=== PATIENT | female | born 1955 | race Caucasian/White ===

== ENCOUNTER → 2017-04-26 | Outpatient (CLI) | payer OTHER ==
--- NOTE | 2017-04-30 07:28 | MM ---
Reason for exam: additional evaluation requested from prior study. Last mammogram was performed 1 year ago. History: Patient is postmenopausal, has history of breast cancer at age 48, and is nulliparous. Mastectomy of the left breast, February 2004. Benign excisional biopsy of the right breast, 2003. Chemotherapy, 2003. Physical Findings: Nurse did not find any significant physical abnormalities on exam. MG Diagnostic Mammo RT w CAD CC and MLO view(s) were taken of the right breast. Prior study comparison: April 25, 2016, right breast MG diagnostic mammo RT w CAD. April 18, 2015, right breast MG diagnostic mammo RT w CAD. The breast tissue is almost entirely fat. No significant new findings when compared with previous films. These results were verbally communicated with the patient and result sheet given to the patient on 04/26/17. ASSESSMENT: Benign, BI-RAD 2 RECOMMENDATION: Follow-up diagnostic mammogram of the right breast in 1 year.
== END | disposition home or self-care (01) ==
LOC: RADMAMWWP 13:21
PROVIDERS: ATTEND Family Medicine
DX: Z08 Encounter for follow-up examination after completed treatment for malignant neoplasm (principal); Z85.3 Personal history of malignant neoplasm of breast

== ENCOUNTER → 2017-12-12 | Outpatient (CLI) | payer OTHER ==
[2017-12-12 12:31] LABS: Anion Gap 12 mmol/L; Blood Urea Nitrogen 18 mg/dL (7-17); Carbon Dioxide 31 mmol/L (22-30); Chloride 99 mmol/L (98-107); Glucose 161 mg/dL (74-99); Sodium 142 mmol/L (137-145)
== END | disposition home or self-care (01) ==
LOC: LABWHC1 11:34
PROVIDERS: ATTEND Nurse Practitioner Adult Health
DX: R60.0 Localized edema (principal); I10 Essential (primary) hypertension
CPT/HCPCS: 36415; 80048

== ENCOUNTER → 2018-02-24 | Outpatient (CLI) | payer OTHER ==
[2018-02-24 10:59] LABS: Anion Gap 9 mmol/L; Blood Urea Nitrogen 16 mg/dL (7-17); Calcium 9.5 mg/dL (8.4-10.2); Carbon Dioxide 31 mmol/L (22-30); Chloride 99 mmol/L (98-107); Glucose 174 mg/dL (74-99); Potassium 4.5 mmol/L (3.5-5.1); Sodium 139 mmol/L (137-145)
== END | disposition home or self-care (01) ==
LOC: LABWHC1 09:53
PROVIDERS: ATTEND Internal Medicine Interventional Cardiology
DX: N18.9 Chronic kidney disease, unspecified (principal)
CPT/HCPCS: 36415; 80048

== ENCOUNTER 2018-06-26 10:17 | Day surgery (SDC) | payer OTHER ==
[2018-06-23 15:32] VITALS: BMI 46.8
[~2018-06-26 10:17] MED LIST: LACTATED RINGERS 1,000 ML IV SCH
[2018-06-26 11:04] VITALS: TEMP 97.9
[2018-06-26] MEDS ORDERED: LIDOCAINE 1% 20 ML VIAL (10MG/ML) FOR IV START INTRADERMA ONE (11:05)
[2018-06-26] MEDS ORDERED: PROPOFOL 10 MG/ML 20 ML VIAL IV ONE (11:33)
--- NOTE | 2018-06-26 11:33 | P.GSHP ---
History of Present Illness H&P Date: 06/26/18 Chief Complaint: History of colon polyps This is a 62-year-old female who presents today for colonoscopy. Patient has history of colonic polyps. Her last colonoscopy was 11 years ago. Past Medical History Past Medical History: Asthma, Cancer, Hypertension, Neurologic Disorder Additional Past Medical History / Comment(s): MIGRAINES. RLS. HX LT BREAST CANCER History of Any Multi-Drug Resistant Organisms: None Reported Past Surgical History: Appendectomy, Breast Surgery, Orthopedic Surgery Additional Past Surgical History / Comment(s): LT MASTECTOMY. BILAT CTR. COLONOSCOPY Past Anesthesia/Blood Transfusion Reactions: Motion Sickness, Postoperative Nausea & Vomiting (PONV) Past Psychological History: No Psychological Hx Reported Smoking Status: Never smoker Past Alcohol Use History: None Reported Past Drug Use History: None Reported - Past Family History Father Family Medical History: Cancer Additional Family Medical History / Comment(s): COLON Sister(s) Family Medical History: Cancer Additional Family Medical History / Comment(s): THYROID Medications and Allergies Home Medications Medication Instructions Recorded Confirmed Type Albuterol Inhaler [Ventolin Hfa 1 - 2 puff INHALATION RT-Q6H PRN 06/23/18 History Inhaler] Furosemide [Lasix] 40 mg PO BID 06/23/18 06/23/18 History Metoprolol Tartrate [Lopressor] 12.5 mg PO AC-SUPPER 06/23/18 06/26/18 History Metoprolol Tartrate [Lopressor] 25 mg PO BID 06/23/18 06/23/18 History Pramipexole Di-HCl [Mirapex] 0.5 mg PO BID 06/23/18 06/23/18 History SUMAtriptan SUCCINATE [Imitrex] 100 mg PO DAILY PRN 06/23/18 06/23/18 History Allergies Allergy/AdvReac Type Severity Reaction Status Date / Time prednisone Allergy FEELS LIKE Verified 06/23/18 15:25 BODY IS ON FIRE cephalexin [From Keflex] AdvReac DIZZY Verified 06/23/18 15:25 Surgical - Exam Vital Signs Temp Pulse Resp BP Pulse Ox 97.9 F 77 18 179/82 98 06/26/18 10:43 06/26/18 10:43 06/26/18 10:43 06/26/18 10:43 06/26/18 10:43 - General well developed, no distress - Eyes PERRL - ENT normal pinna - Neck no masses - Respiratory normal expansion - Cardiovascular Rhythm: regular - Abdomen Abdomen: soft, non tender Assessment and Plan Assessment: Issue colon polyps. We'll perform colonoscopy.
--- NOTE | 2018-06-26 11:51 | P.OP ---
Date of Procedure: 06/26/18 Preoperative Diagnosis: History of colon polyps Postoperative Diagnosis: Diverticulosis Right colon polyp Procedure(s) Performed: Colonoscopy Anesthesia: MAC Surgeon: Armando Slater Pathology: other (Right colon polyp) Condition: stable Disposition: PACU Description of Procedure: The patient's placed on the endoscopy table in the lateral position. She received IV sedation. Digital rectal exam was performed which revealed no abnormalities. The flexible colonoscope was then placed patient anus passed throughout the entire colon. The ileocecal valve was visualized. The cecum appeared normal. The scope was then brought back into the right colon was small polyp seen. This removed the forcep. Scope was withdrawn and remainder of the transverse colon appeared normal. In the descending and sigmoid colon there is moderate diverticular changes. There is no evidence of diverticulitis. Scope was then brought back the rectum and this appeared normal. Scope was withdrawn for patient.
[2018-06-26 12:15] VITALS: BP 140/66; PULSE 85; RESP 16
== END 2018-06-26 12:28 | disposition home or self-care (01) ==
LOC: ORWHC2ENDO 10:17
PROVIDERS: ATTEND Surgery
DX: Z12.11 Encounter for screening for malignant neoplasm of colon (principal); D12.2 Benign neoplasm of ascending colon; K57.30 Diverticulosis of large intestine without perforation or abscess without bleeding; J45.909 Unspecified asthma, uncomplicated; I10 Essential (primary) hypertension; G25.81 Restless legs syndrome; E66.01 Morbid (severe) obesity due to excess calories; Z90.12 Acquired absence of left breast and nipple; Z85.3 Personal history of malignant neoplasm of breast; Z79.899 Other long term (current) drug therapy; Z88.8 Allergy status to other drugs, medicaments and biological substances; Z86.010 Personal history of colon polyps; Z88.1 Allergy status to other antibiotic agents; Z68.42 Body mass index [BMI] 45.0-49.9, adult
CPT/HCPCS: 88305; 45380; J2704

== ENCOUNTER → 2019-09-08 | Outpatient (CLI) | payer OTHER ==
--- NOTE | 2019-09-08 13:39 | MM ---
Reason for exam: additional evaluation requested from prior study. Last mammogram was performed 2 years and 4 months ago. History: Patient is postmenopausal, has history of breast cancer at age 48, and is nulliparous. Mastectomy of the left breast, February 2004. Benign excisional biopsy of the right breast, 2003. Chemotherapy, 2003. Physical Findings: Nurse did not find any significant physical abnormalities on exam. MG Diagnostic Mammo RT w CAD CC, MLO, and XCCL view(s) were taken of the right breast. Prior study comparison: April 26, 2017, right breast MG diagnostic mammo RT w CAD. April 25, 2016, right breast MG diagnostic mammo RT w CAD. There are scattered fibroglandular densities. Benign appearing calcifications in the right breast. These results were verbally communicated with the patient and result sheet given to the patient on 09/08/19. ASSESSMENT: Benign, BI-RAD 2 RECOMMENDATION: Follow-up diagnostic mammogram of the right breast in 1 year.
== END | disposition home or self-care (01) ==
LOC: RADMAMWWP 12:47
PROVIDERS: ATTEND Family Medicine
DX: Z08 Encounter for follow-up examination after completed treatment for malignant neoplasm (principal); Z85.3 Personal history of malignant neoplasm of breast
CPT/HCPCS: 77065

== ENCOUNTER → 2020-04-07 | Outpatient (CLI) | payer OTHER ==
--- NOTE | 2020-04-07 13:53 | XR ---
EXAMINATION TYPE: XR chest 2V DATE OF EXAM: 04/07/2020 COMPARISON: NONE TECHNIQUE: PA and lateral views submitted. HISTORY: Cough FINDINGS: Limited inspiration with left-sided consolidation and pleural effusion. Surgical changes overlying th e left hemithorax. No pneumothorax. Arthropathy of the shoulders. Heart size normal. Hypertrophic and degenerative change of the spine. IMPRESSION: 1. Left lower lobe infiltrate and small effusion
== END | disposition home or self-care (01) ==
LOC: RADXRMAIN 13:21
PROVIDERS: ATTEND Family Medicine
DX: J90 Pleural effusion, not elsewhere classified (principal); R91.8 Other nonspecific abnormal finding of lung field
CPT/HCPCS: 71046

== ENCOUNTER → 2020-04-27 | Outpatient (CLI) | payer OTHER ==
--- NOTE | 2020-04-28 08:00 | XR ---
EXAMINATION TYPE: XR chest 2V DATE OF EXAM: 04/27/2020 COMPARISON: 04/07/2020 HISTORY: 64-year-old female R52, pain TECHNIQUE: Frontal and lateral views FINDINGS: Very low lung volumes with crowded vascular markings. Left heart margin partially obscured by the mod erate left effusion, relatively similar to prior exam. Right lung and pleural space appear clear. Tracy gical clips along the lateral left hemithorax. IMPRESSION: Hypoventilatory changes and continued moderate left pleural effusion with adjacent atelectasis and/or consolidation.
== END | disposition home or self-care (01) ==
LOC: RADXRMAIN 13:27
PROVIDERS: ATTEND Family Medicine
DX: J90 Pleural effusion, not elsewhere classified (principal); J98.11 Atelectasis; R91.8 Other nonspecific abnormal finding of lung field
CPT/HCPCS: 71046

== ENCOUNTER → 2020-06-17 | Outpatient (CLI) | payer OTHER ==
[2020-06-17 08:16] LABS: African American GFR (CKD) >90 (>60 ml/min/1.73 sqM); Blood Urea Nitrogen 22 mg/dL (7-17); Non-African American GFR(CKD) >90 (>60 ml/min/1.73 sqM)
--- NOTE | 2020-06-17 11:26 | CT ---
EXAMINATION TYPE: CT chest w con DATE OF EXAM: 06/17/2020 COMPARISON: Chest x-ray 06/08/2020 HISTORY: Pleural effusion CT DLP: 381.4 mGycm Automated exposure control for dose reduction was used. CONTRAST: CT scan of the chest is performed with IV Contrast, patient injected with 100 mL of Isovue 300. FINDINGS: Patient is post left mastectomy, surgical clips are present in the left axilla and along th e left chest wall LUNGS: The left hemithorax show some volume loss, there is a left pleural effusion and associated ate lectasis. There is an enhancing wall present which may be due to chronicity, correlate to exclude inf ection The tracheobronchial tree is patent. MEDIASTINUM: There are no greater than 1 cm hilar or mediastinal lymph nodes. No pericardial effusi on is seen. AORTA: No additional significant abnormality is seen. OTHER: The liver shows low attenuation possibly due to hepatic steatosis. Some increased density wit hin the gallbladder could be related to gallstone but is indeterminate. Degenerative disc changes are present in the visualized spine, there is a slight spinal curvature. IMPRESSION: Left lower lobe atelectasis and associated effusion. Correlate to exclude empyema. Addit ional findings above.
== END | disposition home or self-care (01) ==
LOC: RADCTMAIN 07:25
PROVIDERS: ATTEND Internal Medicine Critical Care Medicine
DX: J98.11 Atelectasis (principal); J90 Pleural effusion, not elsewhere classified; Z88.1 Allergy status to other antibiotic agents; Z88.2 Allergy status to sulfonamides
CPT/HCPCS: 82565; 84520; 71260; 36415; Q9967

== ENCOUNTER 2020-06-30 11:38 | Day surgery (SDC) | payer OTHER ==
[~2020-06-30 11:38] MED LIST changes: -LACTATED RINGERS 1,000 ML IV SCH; +SODIUM CHLORIDE 0.9% 500 ML 500 ML in EMPTY BAG 1 BAG IV PRN
[2020-06-30 12:29] VITALS: BP 141/103; PULSE 96; RESP 16; TEMP 94.5
--- NOTE | 2020-06-30 12:39 | P.PCN ---
Date of Procedure: 06/30/20 Preoperative Diagnosis: Left sided pleural effusion Postoperative Diagnosis: left sided pleural effusion Procedure(s) Performed: Thoracentesis Anesthesia: local Surgeon: Abraham Espinoza Indications for Procedure: A time out was performed and the chest x-ray was reviewed, the appropriate side was confirmed and marked. My hands were washed immediately prior to the procedure. I wore a surgical cap, mask with protective eyewear, sterile gown and sterile gloves throughout the procedure. The patient was prepped and draped in a sterile manner using chlorhexidine scrub after the appropriate level was percussed and confirmed by ultrasound. 1% lidocaine was used to anesthesize the skin, subcutaneous tissue, superior aspect of the rib periosteum and parietal pleura. A finder needle was then introduced over the superior aspect of the rib to locate the pleural fluid; minimal bloody fluid was aspirated at a depth of approximately 2 cm. A 10-blade scalpel was used to howard the skin at the insertion site. The [id number]-[id number] needle was then introduced through the skin incision into the pleural space using negative aspiration pressure and the red colometric indicator to confirm appropriate positioning of the needle. The thoracentesis catheter was then threaded without difficulty. 30 ml of turbid thick bloody fluid was removed without difficulty. The catheter was then remove d. No immediate complications were noted during the procedure. A post-procedure chest x-ray is pending at the time of this note. The fluid will was not sent for studies as it clotted. I discussed the case with interventional radiology. The patient is going to have the procedure again tomorrow under ultrasound guidance by Dr. Alex Mcnally. She'll be discharged today once the chest x-rays clear.
--- NOTE | 2020-06-30 13:31 | XR ---
EXAMINATION TYPE: XR chest 1V portable DATE OF EXAM: 06/30/2020 COMPARISON: Prior chest x-ray 04/27/2020 HISTORY: Status post left thoracentesis TECHNIQUE: Single frontal view of the chest is obtained. FINDINGS: Patient is rotated. There is persistent density at the left lung base. No evident pneumoth orax, lung lines are low. Surgical clips present over the left chest. IMPRESSION: No evident complication status post thoracentesis.
== END 2020-06-30 13:35 | disposition home or self-care (01) ==
LOC: PROCWHC3 11:38
PROVIDERS: ATTEND Internal Medicine Critical Care Medicine
DX: J90 Pleural effusion, not elsewhere classified (principal); I10 Essential (primary) hypertension; E11.9 Type 2 diabetes mellitus without complications; G43.909 Migraine, unspecified, not intractable, without status migrainosus; G25.81 Restless legs syndrome; E66.9 Obesity, unspecified; J98.6 Disorders of diaphragm; I97.2 Postmastectomy lymphedema syndrome; M40.204 Unspecified kyphosis, thoracic region; Z88.1 Allergy status to other antibiotic agents; Z88.8 Allergy status to other drugs, medicaments and biological substances; Z79.84 Long term (current) use of oral hypoglycemic drugs; Z79.899 Other long term (current) drug therapy; Z85.3 Personal history of malignant neoplasm of breast; Z92.21 Personal history of antineoplastic chemotherapy; Z98.890 Other specified postprocedural states; Z68.39 Body mass index [BMI] 39.0-39.9, adult
CPT/HCPCS: 32554; 71045

== ENCOUNTER 2020-07-01 10:44 | Day surgery (SDC) | payer OTHER ==
[2020-07-01 11:43] LABS: Mean Platelet Volume 7.8; Platelet Count 319 k/uL (150-450)
[2020-07-01 11:44] VITALS: RESP 18; TEMP 97.4
[2020-07-01 11:47] LABS: Prothrombin Time 10.5 sec (9.0-12.0)
--- NOTE | 2020-07-01 13:28 | XR ---
EXAMINATION TYPE: XR chest 1V portable DATE OF EXAM: 07/01/2020 COMPARISON: 06/30/2020 INDICATION: Left thoracentesis TECHNIQUE: Single frontal view of the chest is obtained. FINDINGS: The heart size is normal. The pulmonary vasculature is normal. Left side chest wall surgical clips are present. No pneumothorax is evident. Small left pleural effus ion is present. IMPRESSION: 1. Small left pleural effusion slightly smaller. No pneumothorax.
[2020-07-01 13:41] VITALS: BP 124/64; PULSE 98
--- NOTE | 2020-07-01 15:09 | US ---
EXAMINATION TYPE: US thoracentesis DATE OF EXAM: 07/01/2020 COMPARISON: NONE HISTORY: Pleural effusion. FINDINGS: Maximal barrier technique was utilized. The skin overlying a suitable pocket of fluid was localized and the overlying skin prepped and draped. Lidocaine was used for local anesthesia. Ultras ound was used with sterile technique. A 5 [place] catheter over guide needle was advanced into the pl eural fluid collection using ultrasound guidance and the catheter advanced, needle removed. Approxim ately 0.2 liter(s) of serous fluid was removed. Catheter was withdrawn and hemostasis achieved. The re is no immediate complication. The patient discharged in stable condition without complication. Sp ecimen sent for laboratory analysis. IMPRESSION: STATUS POST ULTRASOUND GUIDED THORACENTESIS, POST PROCEDURE CHEST X-RAY PENDING. THIS DE OCEDURE WAS PERFORMED BY THE UNDERSIGNED.
[2020-07-01 19:35] LABS: Appearance,BF Clear; Color,BF Yellow; Nucleated Cells, Body Fluid 770 /uL; RBC, Body Fluid 1715 /uL
[2020-07-01 20:36] LABS: Mononuclear WBC,Body Fluid 100 %; Total Cells Counted,Body Fluid 100
[2020-07-02 00:26] LABS: Total Protein, Body Fluid 3010 mg/dL
[2020-07-02 00:41] LABS: Glucose, BF Source Pleural Fluid; Glucose, Body Fluid 124 mg/dL; LDH, Body Fluid Source Pleural Fluid
== END 2020-07-01 13:05 | disposition home or self-care (01) ==
LOC: RADPROMAIN 10:44
PROVIDERS: ATTEND Internal Medicine Critical Care Medicine
DX: J90 Pleural effusion, not elsewhere classified (principal)
CPT/HCPCS: 32555; 36415; 71045; 82945; 82947; 83615; 84157; 85049; 85610; 87070; 87075; 87205; 88108; 88305; 88341; 88342; 89050

== ENCOUNTER 2021-01-04 09:55 | Emergency (ER) | payer OTHER ==
[2021-01-04 10:07] VITALS: TEMP 96.9
[2021-01-04 11:38] LABS: Basophils # (A) 0.1 k/uL (0-0.2); Basophils % (A) 1 %; Eosinophils # (A) 0.1 k/uL (0-0.7); Eosinophils % (A) 1 %; HCT 41.5 % (34.0-46.0); Lymphocytes # (A) 1.6 k/uL (1.0-4.8); Lymphocytes % (A) 22 %; MCH 30.4 pg (25.0-35.0); MCHC 33.8 g/dL (31.0-37.0); MCV 89.9 fL (80.0-100.0); Mean Platelet Volume 7.4; Monocytes # (A) 0.5 k/uL (0-1.0); Monocytes % (A) 6 %; Neutrophils # (A) 5.1 k/uL (1.3-7.7); Neutrophils % (A) 69 %; Platelet Count 349 k/uL (150-450); RBC 4.62 m/uL (3.80-5.40); RDW 13.1 % (11.5-15.5); WBC 7.4 k/uL (3.8-10.6)
[2021-01-04 12:00] LABS: Albumin 4.4 g/dL (3.5-5.0); Calcium 9.9 mg/dL (8.4-10.2); Potassium 4.4 mmol/L (3.5-5.1); Total Bilirubin 0.6 mg/dL (0.2-1.3); Total Protein 7.3 g/dL (6.3-8.2)
--- NOTE | 2021-01-04 12:46 | ED ---
Skin/Abscess/FB HPI - General Chief complaint: Skin/Abscess/Foreign Body Stated complaint: open wounds on legs Time Seen by Provider: 01/04/21 10:15 Source: patient Mode of arrival: ambulatory Limitations: no limitations - History of Present Illness Initial comments: 65-year-old female with chronic leg swelling of the lower extremity bilaterally, presents emergency department today for chief complaint of oozing legs b/l. Patient states that she has had swollen legs for "years" she states she was told her veins are bad due to chemotherapy from 17 years ago when she had breast cancer. pt now on lasix/spironolactone for "water weight". Patient states she's been compliant with these but continues to have swollen like she states for history of weeks she has had weeping and wounds of the posterior legs bilaterally. Patient states she has been attempting to get into her primary care provider and has been unable to. She denies a fever redness of the legs. Patient states she has a large wound to the back of the right leg. Patietn denies purulent drainage-she states that it is clear. Denies dyspnea, difficulty lying flat. Denies additional complaints. - Related Data Home Medications Medication Instructions Recorded Confirmed Furosemide [Lasix] 40 mg PO BID 06/23/18 01/04/21 Metoprolol Tartrate [Lopressor] 12.5 mg PO DAILY@1500 06/23/18 01/04/21 Metoprolol Tartrate [Lopressor] 25 mg PO BID@0700,2100 06/23/18 01/04/21 SUMAtriptan SUCCINATE [Imitrex] 100 mg PO DAILY PRN 06/23/18 01/04/21 Losartan Potassium [Cozaar] 25 mg PO DAILY 06/30/20 01/04/21 Pramipexole [Mirapex] 0.5 mg PO BID 06/30/20 01/04/21 Rosuvastatin Calcium 5 mg PO DAILY 06/30/20 01/04/21 Spironolactone 25 mg PO DAILY 06/30/20 01/04/21 metFORMIN HCL [Glucophage] 500 mg PO TID 06/30/20 01/04/21 Albuterol Sulfate [Proair Hfa] 2 puff INHALATION RT-QID PRN 01/04/21 01/04/21 Previous Rx's Medication Instructions Recorded SILVER sulfADIAZINE Cream 1 applic TOPICAL DAILY 7 Days #30 01/04/21 [Silvadene 1% Cream] gram Allergies Allergy/AdvReac Type Severity Reaction Status Date / Time lisinopril Allergy Unknown Verified 01/04/21 11:22 metolazone Allergy Unknown Verified 01/04/21 11:22 prednisone Allergy FEELS LIKE Verified 01/04/21 11:22 BODY IS ON FIRE cephalexin [From Keflex] AdvReac DIZZY Verified 01/04/21 11:22 Review of Systems ROS Statement: Those systems with pertinent positive or pertinent negative responses have been documented in the HPI. ROS Other: All systems not noted in ROS Statement are negative. Past Medical History Past Medical History: Asthma, Cancer, Hypertension, Neurologic Disorder Additional Past Medical History / Comment(s): MIGRAINES. RLS. HX LT BREAST CANCER History of Any Multi-Drug Resistant Organisms: None Reported Past Surgical History: Appendectomy, Breast Surgery, Orthopedic Surgery Additional Past Surgical History / Comment(s): LT MASTECTOMY. BILAT CTR. COLONOSCOPY. thoracentesis Past Anesthesia/Blood Transfusion Reactions: Motion Sickness, Postoperative Nausea & Vomiting (PONV) Past Psychological History: No Psychological Hx Reported Smoking Status: Never smoker Past Alcohol Use History: None Reported Past Drug Use History: None Reported - Past Family History Father Family Medical History: Cancer Additional Family Medical History / Comment(s): COLON Sister(s) Family Medical History: Cancer Additional Family Medical History / Comment(s): THYROID General Exam - General Exam Comments Initial Comments: General: The patient is awake and alert, in no distress Eye: +3mm pupils are equal, round and reactive to light, extra-ocular movements are intact. No nystagmus. There is normal conjunctiva bilaterally. No signs of icterus. Ears, nose, mouth and throat: There are moist mucous membranes and no oral lesions. Neck: The neck is supple, there is no tenderness or JVD. Cardiovascular: There is a regular rate and rhythm. No murmur, rub or gallop is appreciated. Respiratory: Lungs are clear to auscultation, respirations are non-labored, breath sounds are equal. No wheezes, stridor, rales, or rhonchi. Gastrointestinal: Soft, non-distended, non-tender abdomen without masses or organomegaly noted. There is no rebound or guarding present. Musculoskeletal: Normal ROM, no tenderness. Strength 5/5. Sensation intact. Radial and DP pulses equal bilaterally 2+. Neurological: A&O x 3. CN II-XII intact grossly, There are no obvious motor or sensory deficits. Coordination appears grossly intact. Speech is normal. Skin: Skin is warm and dry and no rashes. small ulcerations/excoriation of the posterior legs b/l. on right posterior leg large bullae 8x8 cm. no surrounding redness. clear drainage-no ordors or warmth. Psychiatric: Cooperative, appropriate mood & affect, normal judgment. Limitations: no limitations Course Vital Signs 01/04/21 01/04/21 10:03 13:23 Temperature 96.9 F L Pulse Rate 83 77 Respiratory 18 16 Rate Blood Pressure 100/50 94/56 O2 Sat by Pulse 95 99 Oximetry Medical Decision Making - Medical Decision Making BNP WNL> VS stable. No fevers. NO leukocytosis. Patient appears well nontoxic. Patient has good pulses of dorsalis pedis and posterior tibial. At this time I consult the patient's primary care provider who stated that they can get patient into their office on Saturday and recommended silvadene cream daily with tight bandages to reduce fluid build up. he is agreeable to outpatient care. Dr Gonzalez agreeable to outpatient management. return parameters discussed nad patient discharged appearing well. - Lab Data Result diagrams: 01/04/21 11:18 01/04/21 11:18 Lab Results 01/04/21 01/04/21 01/04/21 Range/Units 11:18 11:18 11:18 WBC 7.4 (3.8-10.6) k/uL RBC 4.62 (3.80-5.40) m/uL Hgb 14.0 (11.4-16.0) gm/dL Hct 41.5 (34.0-46.0) % MCV 89.9 (80.0-100.0) fL MCH 30.4 (25.0-35.0) pg MCHC 33.8 (31.0-37.0) g/dL RDW 13.1 (11.5-15.5) % Plt Count 349 (150-450) k/uL MPV 7.4 Neutrophils % 69 % Lymphocytes % 22 % Monocytes % 6 % Eosinophils % 1 % Basophils % 1 % Neutrophils # 5.1 (1.3-7.7) k/uL Lymphocytes # 1.6 (1.0-4.8) k/uL Monocytes # 0.5 (0-1.0) k/uL Eosinophils # 0.1 (0-0.7) k/uL Basophils # 0.1 (0-0.2) k/uL Sodium 134 L (137-145) mmol/L Potassium 4.4 (3.5-5.1) mmol/L Chloride 98 (98-107) mmol/L Carbon Dioxide 24 (22-30) mmol/L Anion Gap 12 mmol/L BUN 39 H (7-17) mg/dL Creatinine 0.83 (0.52-1.04) mg/dL Est GFR (CKD-EPI)AfAm 87 (>60 ml/min/1.73 sqM) Est GFR (CKD-EPI)NonAf 75 (>60 ml/min/1.73 sqM) Glucose 119 H (74-99) mg/dL Calcium 9.9 (8.4-10.2) mg/dL Total Bilirubin 0.6 (0.2-1.3) mg/dL AST 30 (14-36) U/L ALT 19 (4-34) U/L Alkaline Phosphatase 78 (38-126) U/L NT-Pro-B Natriuret Pep 194 pg/mL Total Protein 7.3 (6.3-8.2) g/dL Albumin 4.4 (3.5-5.0) g/dL Disposition Clinical Impression: Leg wound, left, Leg wound, right Disposition: HOME SELF-CARE Condition: Good Instructions (If sedation given, give patient instructions): Acute Wound Care (ED), Wound Healing and Your Diet (ED) Additional Instructions: Please use medication as discussed. Please follow-up with family doctor in office on Saturday. Please return to emergency room if the symptoms increase or worsen or for any other concerns. Prescriptions: SILVER sulfADIAZINE Cream [Silvadene 1% Cream] 1 applic TOPICAL DAILY 7 Days #30 gram Is patient prescribed a controlled substance at d/c from ED?: No Referrals: Venancio Lucas DO [Primary Care Provider] - 1-2 days Time of Disposition: 12:46
[2021-01-04 13:24] VITALS: BP 94/56; PULSE 77; RESP 16
== END 2021-01-04 13:24 | disposition home or self-care (01) ==
LOC: EC 09:55
DX: S81.801A Unspecified open wound, right lower leg, initial encounter (principal); S81.802A Unspecified open wound, left lower leg, initial encounter; J45.909 Unspecified asthma, uncomplicated; I10 Essential (primary) hypertension; Z85.3 Personal history of malignant neoplasm of breast; Z79.899 Other long term (current) drug therapy; Z79.51 Long term (current) use of inhaled steroids; X58.XXXA Exposure to other specified factors, initial encounter
CPT/HCPCS: 36415; 80053; 83880; 85025; 99283

== ENCOUNTER 2023-01-30 13:50 | Inpatient (IN) | payer MEDICARE, OTHER ==
[2023-01-30] MEDS ORDERED: ONDANSETRON 4 MG/2 ML VIAL IVP STA (15:16)
[2023-01-30] MEDS ORDERED: SODIUM CHLORIDE 0.9% 1,000 ML IV STA (15:16)
--- NOTE | 2023-01-30 15:17 | ED ---
Weakness HPI - General Chief complaint: Nausea/Vomiting/Diarrhea Stated complaint: Vomiting Source: patient, RN notes reviewed, old records reviewed Mode of arrival: ambulatory Limitations: no limitations - History of Present Illness Initial comments: This is a 67-year-old female to the emergency department for evaluation with known significant hiatal hernia scheduled repair. Patient has no surgical evaluation regards to hiatal hernia. Patient presents with severely significant abdominal pain as well as with persistent nausea vomiting weakness not feeling well. Patient states she cannot keep anything down his continue to get persistently weak worsening weakness. The symptoms have been ongoing for quite some time she continues to get weak with significant weight loss MD Complaint: generalized weakness, focal weakness, lack of energy, difficulty walking -: hour(s) Location: generalized Severity: moderate Severity scale (1-10): 4 Quality: aching Consistency: constant Improves with: none Worsens with: none Context: recent illness, history of similar Associated Symptoms: loss of appetite, nausea/vomiting - Related Data Home Medications Medication Instructions Recorded Confirmed Furosemide [Lasix] 40 mg PO BID 06/23/18 01/30/23 Metoprolol Tartrate [Lopressor] 12.5 mg PO DAILY@1500 06/23/18 01/30/23 Metoprolol Tartrate [Lopressor] 25 mg PO BID 06/23/18 01/30/23 Losartan Potassium [Cozaar] 25 mg PO DAILY 06/30/20 01/30/23 Pramipexole [Mirapex] 1 mg PO BID 06/30/20 01/30/23 Rosuvastatin Calcium 5 mg PO DAILY 06/30/20 01/30/23 Spironolactone 25 mg PO DAILY 06/30/20 01/30/23 metFORMIN HCL [Glucophage] 500 mg PO TID 06/30/20 01/30/23 Pantoprazole [Protonix] 40 mg PO BID 01/30/23 01/30/23 Allergies Allergy/AdvReac Type Severity Reaction Status Date / Time lisinopril Allergy Cough Verified 01/30/23 17:52 metolazone Allergy Unknown Verified 01/30/23 17:52 prednisone Allergy FEELS LIKE Verified 01/30/23 17:52 BODY IS ON FIRE cephalexin [From Keflex] AdvReac DIZZY Verified 01/30/23 17:52 Review of Systems ROS Statement: Those systems with pertinent positive or pertinent negative responses have been documented in the HPI. ROS Other: All systems not noted in ROS Statement are negative. Past Medical History Past Medical History: Asthma, Cancer, Diabetes Mellitus, Hypertension, Neurologic Disorder Additional Past Medical History / Comment(s): MIGRAINES. RLS. HX LT BREAST CANCER History of Any Multi-Drug Resistant Organisms: None Reported Past Surgical History: Appendectomy, Breast Surgery, Orthopedic Surgery Additional Past Surgical History / Comment(s): LT MASTECTOMY. BILAT Carpal tunnel. COLONOSCOPY. thoracentesis Past Anesthesia/Blood Transfusion Reactions: Motion Sickness, Postoperative Nausea & Vomiting (PONV) Past Psychological History: No Psychological Hx Reported Smoking Status: Never smoker Past Alcohol Use History: None Reported Past Drug Use History: None Reported - Past Family History Father Family Medical History: Cancer Additional Family Medical History / Comment(s): COLON Sister(s) Family Medical History: Cancer Additional Family Medical History / Comment(s): THYROID General Exam Limitations: no limitations General appearance: alert, in no apparent distress Head exam: Present: atraumatic, normocephalic, normal inspection Eye exam: Present: normal appearance, PERRL, EOMI. Absent: scleral icterus, conjunctival injection, periorbital swelling ENT exam: Present: normal exam, mucous membranes moist Neck exam: Present: normal inspection. Absent: tenderness, meningismus, lymphadenopathy Respiratory exam: Present: normal lung sounds bilaterally. Absent: respiratory distress, wheezes, rales, rhonchi, stridor Cardiovascular Exam: Present: regular rate, normal rhythm, normal heart sounds. Absent: systolic murmur, diastolic murmur, rubs, gallop, clicks GI/Abdominal exam: Present: soft, normal bowel sounds. Absent: distended, tenderness, guarding, rebound, rigid Extremities exam: Present: normal inspection, full ROM, normal capillary refill. Absent: tenderness, pedal edema, joint swelling, calf tenderness Back exam: Present: normal inspection Neurological exam: Present: alert, oriented X3, CN II-XII intact Psychiatric exam: Present: normal affect, normal mood Skin exam: Present: warm, dry, intact, normal color. Absent: rash Course Vital Signs 01/30/23 01/30/23 01/30/23 14:36 16:58 18:06 Temperature 97.2 F L Pulse Rate 109 H 115 H 100 Pulse Rate [ Pulse Oximetery ] Respiratory 15 20 18 Rate Blood Pressure 115/79 110/52 116/69 O2 Sat by Pulse 97 94 L 97 Oximetry 01/30/23 01/30/23 01/30/23 19:40 21:20 21:22 Temperature 98.2 F Pulse Rate 100 97 Pulse Rate [ 117 H Pulse Oximetery ] Respiratory 19 18 16 Rate Blood Pressure 120/64 112/67 O2 Sat by Pulse 97 98 Oximetry - Reevaluation(s) Reevaluation #1: 01/30/23 23:40 Medical records reviewed Reevaluation #2: 01/30/23 23:40 Patient has no change in symptoms here in the ER still not able tolerate liquid, attempted to give liquid potassium here in the hospital Reevaluation #3: 01/30/23 23:40 Patient informed results questions answered Reevaluation #4: 01/30/23 23:41 Was pt. sent in by a medical professional or institution? @ -no Did you speak to anyone other than the patient for history? @ -no Did you review nursing and triage notes? @ -agree Were old charts reviewed? @ -no Differential Diagnosis? @ -prior EKG interpreted by me (3pts min.)? @ -yes X-rays interpreted by me (1pt min.)? @ -no CT interpreted by me (1pt min.)? @ -no U/S interpreted by me (1pt. min.)? @ -no What testing was considered but not performed? (CT, X-rays, U/S, labs)? Why? @ -no What meds were considered but not given? Why? @ -no Did you discuss the management of the patient with other professionals? @ -no Did you reconcile home meds? @ -yes Was smoking cessation discussed for >3mins.? @ -no Was critical care preformed (if so, how long)? @ -no Were there social determinants of health that impacted care today? How? (Homelessness, low income, unemployed, alcoholism, drug addiction, transportation, low edu. Level, literacy, decrease access to med. care, senior living, rehab)? @ -no Was there de-escalation of care discussed even if they declined? (Discuss DNR or withdrawal of care, Hospice)? @ -no What co-morbidities impacted this encounter? (DM, HTN, Smoking, COPD, CAD, Ca ncer, CVA, Hep., AIDS, mental health diagnosis, sleep apnea, morbid obesity)? @ -none Was patient admitted / discharged? @ -75 female to be admitted for hypertensive urgency, patient has had multiple visits with elevated blood pressure is requiring multiple blood pressure medications here in the ER, chest pain remains Admitted Undiagnosed new problem with uncertain prognosis? @ -no Drug Therapy requiring intensive monitoring for toxicity (Heparin, Nitro, Insulin, Cardizem)? @ -no Were any procedures done? @ -no Diagnosis/symptom? @ -Acute nausea vomiting, malnutrition, abdominal pain Acute, or Chronic, or Acute on Chronic? @ -no Uncomplicated (without systemic symptoms) or Complicated (systemic symptoms)? @ -complicated Side effects of treatment? @ -no Exacerbation, Progression, or Severe Exacerbation] @ -no Poses a threat to life or bodily function? @ -yes with severe malnutrition Reevaluation #5: Differential Weakness: Hypoglycemia, shock, sepsis, hyponatremia, anemia, infection, VT, ETOH, adverse medicine reaction, overdose, stroke, this is not meant to be an all-inclusive list. Differential Abdominal Pain Men: Appendicitis, cholecystitis, diverticulosis, ischemic bowel, pancreatitis, hepatitis, UTI, gastroenteritis, AAA, incarcerated hernia, bowel obstruction, constipation, inflammatory bowel, hepatitis, peptic ulcer disease, splenic infarction, perforated viscus, testicular torsion, this is not meant to be an all-inclusive list - Consultations Consultation #1: Spoke with admitting physicians who agree to admit this patient Consultation #2: Spoke with surgery who will see the patient in consult EKG Findings - EKG Comments: EKG Findings:: EKG shows sinus 100 HI 186 QRS 94 QTC 428 Medical Decision Making - Medical Decision Making 67 female with known hiatal hernia. Patient will be admitted for surgical c onsult regarding head only area intractable nausea vomiting and management - Lab Data Result diagrams: 02/06/23 04:03 02/08/23 04:02 Lab Results 01/30/23 01/30/23 01/30/23 Range/Units 14:55 15:21 15:21 WBC 6.8 (3.8-10.6) k/uL RBC 4.33 (3.80-5.40) m/uL Hgb 13.4 (11.4-16.0) gm/dL Hct 40.5 (34.0-46.0) % MCV 93.5 (80.0-100.0) fL MCH 31.0 (25.0-35.0) pg MCHC 33.2 (31.0-37.0) g/dL RDW 12.2 (11.5-15.5) % Plt Count 306 (150-450) k/uL MPV 7.4 Neutrophils % 71 % Lymphocytes % 17 % Monocytes % 10 % Eosinophils % 0 % Basophils % 0 % Neutrophils # 4.8 (1.3-7.7) k/uL Lymphocytes # 1.2 (1.0-4.8) k/uL Monocytes # 0.7 (0-1.0) k/uL Eosinophils # 0.0 (0-0.7) k/uL Basophils # 0.0 (0-0.2) k/uL PT 11.4 (9.0-12.0) sec INR 1.1 (<1.2) APTT 24.8 (22.0-30.0) sec Sodium (137-145) mmol/L Potassium (3.5-5.1) mmol/L Chloride (98-107) mmol/L Carbon Dioxide (22-30) mmol/L Anion Gap mmol/L BUN (7-17) mg/dL Creatinine (0.52-1.04) mg/dL Est GFR (CKD-EPI)AfAm (>60 ml/min/1.73 sqM) Est GFR (CKD-EPI)NonAf (>60 ml/min/1.73 sqM) Glucose (74-99) mg/dL Plasma Lactic Acid Ace (0.7-2.0) mmol/L Calcium (8.4-10.2) mg/dL Phosphorus (2.5-4.5) mg/dL Magnesium (1.6-2.3) mg/dL Total Bilirubin (0.2-1.3) mg/dL AST (14-36) U/L ALT (4-34) U/L Alkaline Phosphatase (38-126) U/L Troponin I (0.000-0.034) ng/mL Total Protein (6.3-8.2) g/dL Albumin (3.5-5.0) g/dL Lipase (23-300) U/L Urine Color Yellow Urine Appearance Clear (Clear) Urine pH 5.5 (5.0-8.0) Ur Specific Norman 1.020 (1.001-1.035) Urine Protein Trace H (Negative) Urine Glucose (UA) Negative (Negative) Urine Ketones 2+ H (Negative) Urine Blood Negative (Negative) Urine Nitrite Negative (Negative) Urine Bilirubin 1+ H (Negative) Urine Urobilinogen 2.0 (<2.0) mg/dL Ur Leukocyte Esterase Negative (Negative) 01/30/23 01/30/23 01/30/23 Range/Units 15:21 15:21 15:21 WBC (3.8-10.6) k/uL RBC (3.80-5.40) m/uL Hgb (11.4-16.0) gm/dL Hct (34.0-46.0) % MCV (80.0-100.0) fL MCH (25.0-35.0) pg MCHC (31.0-37.0) g/dL RDW (11.5-15.5) % Plt Count (150-450) k/uL MPV Neutrophils % % Lymphocytes % % Monocytes % % Eosinophils % % Basophils % % Neutrophils # (1.3-7.7) k/uL Lymphocytes # (1.0-4.8) k/uL Monocytes # (0-1.0) k/uL Eosinophils # (0-0.7) k/uL Basophils # (0-0.2) k/uL PT (9.0-12.0) sec INR (<1.2) APTT (22.0-30.0) sec Sodium 134 L (137-145) mmol/L Potassium 2.7 L* (3.5-5.1) mmol/L Chloride 69 L* (98-107) mmol/L Carbon Dioxide 49 H* (22-30) mmol/L Anion Gap 16 mmol/L BUN 43 H (7-17) mg/dL Creatinine 1.65 H (0.52-1.04) mg/dL Est GFR (CKD-EPI)AfAm 37 (>60 ml/min/1.73 sqM) Est GFR (CKD-EPI)NonAf 32 (>60 ml/min/1.73 sqM) Glucose 128 H (74-99) mg/dL Plasma Lactic Acid Ace 1.9 (0.7-2.0) mmol/L Calcium 9.0 (8.4-10.2) mg/dL Phosphorus 3.7 (2.5-4.5) mg/dL Magnesium 2.3 (1.6-2.3) mg/dL Total Bilirubin 1.9 H (0.2-1.3) mg/dL AST 44 H (14-36) U/L ALT 27 (4-34) U/L Alkaline Phosphatase 97 (38-126) U/L Troponin I 0.062 H* (0.000-0.034) ng/mL Total Protein 6.6 (6.3-8.2) g/dL Albumin 4.0 (3.5-5.0) g/dL Lipase 92 (23-300) U/L Urine Color Urine Appearance (Clear) Urine pH (5.0-8.0) Ur Specific Norman (1.001-1.035) Urine Protein (Negative) Urine Glucose (UA) (Negative) Urine Ketones (Negative) Urine Blood (Negative) Urine Nitrite (Negative) Urine Bilirubin (Negative) Urine Urobilinogen (<2.0) mg/dL Ur Leukocyte Esterase (Negative) - EKG Data -: EKG Interpreted by Me (EKG shows sinus 100 by mouth 186 QRS 94 QTC 428) Disposition Clinical Impression: Dehydration, Nausea & vomiting, Hypokalemia, Weakness, JOYCELYN (acute kidney injury), Gastritis, Ascites, Vomiting, Malnutrition, Hiatal hernia Disposition: ADMITTED IP TO THIS HOSP Condition: Serious Is patient prescribed a controlled substance at d/c from ED?: No Time of Disposition: 17:30
[2023-01-30 15:31] LABS: Basophils % (A) 0 %; Eosinophils % (A) 0 %; HCT 40.5 % (34.0-46.0); HGB 13.4 gm/dL (11.4-16.0); Lymphocytes # (A) 1.2 k/uL (1.0-4.8); Lymphocytes % (A) 17 %; MCHC 33.2 g/dL (31.0-37.0); MCV 93.5 fL (80.0-100.0); Mean Platelet Volume 7.4; Monocytes # (A) 0.7 k/uL (0-1.0); Monocytes % (A) 10 %; Neutrophils # (A) 4.8 k/uL (1.3-7.7); Neutrophils % (A) 71 %; Platelet Count 306 k/uL (150-450); RBC 4.33 m/uL (3.80-5.40); RDW 12.2 % (11.5-15.5); WBC 6.8 k/uL (3.8-10.6)
[2023-01-30 15:45] LABS: INR 1.1 (<1.2); Partial Thromboplastin Time 24.8 sec (22.0-30.0); Prothrombin Time 11.4 sec (9.0-12.0)
[2023-01-30 15:59] LABS: ALT 27 U/L (4-34); AST 44 U/L (14-36); African American GFR (CKD) 37 (>60 ml/min/1.73 sqM); Alkaline Phosphatase 97 U/L (38-126); Blood Urea Nitrogen 43 mg/dL (7-17); Glucose 128 mg/dL (74-99); Lipase 92 U/L (23-300); Magnesium 2.3 mg/dL (1.6-2.3); Non-African American GFR(CKD) 32 (>60 ml/min/1.73 sqM); Phosphorus 3.7 mg/dL (2.5-4.5); Sodium 134 mmol/L (137-145); Total Bilirubin 1.9 mg/dL (0.2-1.3); Total Protein 6.6 g/dL (6.3-8.2)
[2023-01-30 16:05] LABS: Anion Gap 16 mmol/L
[2023-01-30 16:12] LABS: Carbon Dioxide 49 mmol/L (22-30); Chloride 69 mmol/L (98-107); Potassium 2.7 mmol/L (3.5-5.1)
[2023-01-30] MEDS ORDERED: NALOXONE 0.4 MG/ML 1 ML VIAL IV PRN (17:33)
[2023-01-30] MEDS ORDERED: POTASSIUM BICARBONATE/CIT AC 20 MEQ TABLET.EFF PO STA (17:33)
[2023-01-30] MEDS: SODIUM CHLORIDE 0.9% 1,000 ML IV SCH (19:28)
[2023-01-30] MEDS ORDERED: POTASSIUM BICARBONATE/CIT AC 20 MEQ TABLET.EFF PO ONE (20:00)
[2023-01-30] MEDS: POTASSIUM CHLORIDE 10 MEQ in WATER FOR INJECTION 1 100ML.BAG IVPB SCH ×2 (20:40→21:32)
[2023-01-30] MEDS: ONDANSETRON 4 MG/2 ML VIAL IVP PRN (22:21)
[2023-01-31] MEDS: POTASSIUM CHLORIDE 10 MEQ in WATER FOR INJECTION 1 100ML.BAG IVPB SCH ×4 (00:07→11:20)
[2023-01-31] MEDS: SODIUM CHLORIDE 0.9% 1,000 ML IV SCH ×2 (01:28→12:50)
[2023-01-31 06:12] LABS: Glucose,Whole Blood 106 mg/dL (70-110)
[2023-01-31] MEDS ORDERED: metFORMIN 500 MG TAB PO SCH (07:30)
[2023-01-31] MEDS ORDERED: PANTOPRAZOLE 40 MG TABLET PO SCH (07:30)
[2023-01-31 08:27] LABS: Basophils % (A) 0 %; Eosinophils % (A) 1 %; HCT 35.3 % (34.0-46.0); HGB 11.8 gm/dL (11.4-16.0); Lymphocytes # (A) 1.1 k/uL (1.0-4.8); Lymphocytes % (A) 18 %; MCH 31.7 pg (25.0-35.0); MCHC 33.5 g/dL (31.0-37.0); MCV 94.8 fL (80.0-100.0); Mean Platelet Volume 8.6; Monocytes # (A) 0.7 k/uL (0-1.0); Monocytes % (A) 12 %; Neutrophils # (A) 3.9 k/uL (1.3-7.7); Neutrophils % (A) 67 %; Platelet Count 296 k/uL (150-450); RBC 3.72 m/uL (3.80-5.40); RDW 12.3 % (11.5-15.5); WBC 5.8 k/uL (3.8-10.6)
[2023-01-31 08:44] LABS: ALT 22 U/L (4-34); AST 36 U/L (14-36); African American GFR (CKD) 50 (>60 ml/min/1.73 sqM); Albumin 3.1 g/dL (3.5-5.0); Alkaline Phosphatase 71 U/L (38-126); Blood Urea Nitrogen 36 mg/dL (7-17); Calcium 8.1 mg/dL (8.4-10.2); Chloride 75 mmol/L (98-107); Glucose 92 mg/dL (74-99); Lipase 75 U/L (23-300); Magnesium 2.2 mg/dL (1.6-2.3); Non-African American GFR(CKD) 43 (>60 ml/min/1.73 sqM); Phosphorus 3.2 mg/dL (2.5-4.5); Sodium 132 mmol/L (137-145); Total Bilirubin 1.6 mg/dL (0.2-1.3); Total Protein 5.3 g/dL (6.3-8.2)
[2023-01-31 08:51] LABS: Anion Gap 10 mmol/L
[2023-01-31 08:58] LABS: Carbon Dioxide 47 mmol/L (22-30); Potassium 2.5 mmol/L (3.5-5.1)
[2023-01-31] MEDS ORDERED: LOSARTAN 25 MG TAB PO SCH (09:00)
[2023-01-31] MEDS ORDERED: FUROSEMIDE 40 MG TAB PO SCH (09:00)
[2023-01-31] MEDS ORDERED: Potassium Replacement Protocol 1 EACH MISC MISCELLANE PRN ×2 (09:09→09:33)
[2023-01-31 11:57] LABS: Glucose,Whole Blood 77 mg/dL (70-110)
[2023-01-31] MEDS ORDERED: PANTOPRAZOLE 40 MG/10 ML VIAL IVP SCH (12:15)
[2023-01-31] MEDS ORDERED: IOPAMIDOL CONTRAST (ORAL USE) VIAL PO PRN (12:39)
[2023-01-31] MEDS: PRAMIPEXOLE 1 MG TAB PO SCH ×2 (12:48→19:57)
[2023-01-31] MEDS: ATORVASTATIN 10 MG TAB PO SCH (12:48)
[2023-01-31] MEDS: SPIRONOLACTONE 25 MG TAB PO SCH (12:48)
[2023-01-31] MEDS: METOPROLOL TARTRATE 25 MG TAB PO SCH ×2 (12:48→19:57)
--- NOTE | 2023-01-31 12:48 | P.HPIM ---
History of Present Illness H&P Date: 01/31/23 Chief Complaint: Nausea and vomiting worsening This is 67-year-old female with past medical history significant for large hiatal hernia, mild antral gastritis, asthma, diabetes mellitus, hypertension, neurologic disorder, breast cancer status post left mastectomy,PONV , nonpr essure chronic ulcers of bilateral lower extremities -follows with the wound care center at [facility] and multiple other medical issues presented to the ER with worsening nausea and vomiting over the last week accompanied by increased weakness. Reports she has not been able to keep any of her medications down. Denies abdominal pain.Patient previously had symptoms of gastroesophageal reflux disease, nausea and vomiting over 3 months prior to visit with GI. She completed an EGD with Dr. Stephanie Young,GI 10/19/22, reporting a large hiatal hernia, mild antral gastritis, biopsies obtained, Protonix 40 twice a day initiated and patient was referred to Dr. Cesar, general surgery, if no improvement in symptoms in 6-8 weeks. Duodenum, biopsy Pathology reported benign small bowel mucosa with intact villous architecture, negative for histopathologic abnormality, H pylori not identified, negative for fungal organisms. Denies chest pain, palpitations or shortness of breath. Afebrile, normal WBC. Hemoglobin 11.8, platelets 296, INR 1.1. Sodium 132, potassium 2.5, chloride 75, bicarb 47, BUN 36 creatinine 1.29. Lactic acid 1.9, phosphorus 3.2, magnesium 2.2, total bili 1.6, troponin 0.062, lipase 75. Review of Systems ROS Statement: Those systems with pertinent positive or pertinent negative responses have been documented in the HPI. ROS Other: All systems not noted in ROS Statement are negative. Past Medical History Past Medical History: Asthma, Cancer, Diabetes Mellitus, Hypertension, Neurologic Disorder Additional Past Medical History / Comment(s): MIGRAINES. RLS. HX LT BREAST CANCER History of Any Multi-Drug Resistant Organisms: None Reported Past Surgical History: Appendectomy, Breast Surgery, Orthopedic Surgery Additional Past Surgical History / Comment(s): LT MASTECTOMY. BILAT Carpal tunnel. COLONOSCOPY. thoracentesis Past Anesthesia/Blood Transfusion Reactions: Motion Sickness, Postoperative Nausea & Vomiting (PONV) Past Psychological History: No Psychological Hx Reported Smoking Status: Never smoker Past Alcohol Use History: None Reported Past Drug Use History: None Reported - Past Family History Father Family Medical History: Cancer Additional Family Medical History / Comment(s): COLON Sister(s) Family Medical History: Cancer Additional Family Medical History / Comment(s): THYROID Medications and Allergies Home Medications Medication Instructions Recorded Confirmed Type Furosemide [Lasix] 40 mg PO BID 06/23/18 01/30/23 History Metoprolol Tartrate [Lopressor] 12.5 mg PO DAILY@1500 06/23/18 01/30/23 History Metoprolol Tartrate [Lopressor] 25 mg PO BID 06/23/18 01/30/23 History Losartan Potassium [Cozaar] 25 mg PO DAILY 06/30/20 01/30/23 History Pramipexole [Mirapex] 1 mg PO BID 06/30/20 01/30/23 History Rosuvastatin Calcium 5 mg PO DAILY 06/30/20 01/30/23 History Spironolactone 25 mg PO DAILY 06/30/20 01/30/23 History metFORMIN HCL [Glucophage] 500 mg PO TID 06/30/20 01/30/23 History Pantoprazole [Protonix] 40 mg PO BID 01/30/23 01/30/23 History Allergies Allergy/AdvReac Type Severity Reaction Status Date / Time lisinopril Allergy Cough Verified 01/30/23 17:52 metolazone Allergy Unknown Verified 01/30/23 17:52 prednisone Allergy FEELS LIKE Verified 01/30/23 17:52 BODY IS ON FIRE cephalexin [From Keflex] AdvReac DIZZY Verified 01/30/23 17:52 Physical Exam Vitals: Vital Signs Temp Pulse Pulse Resp BP BP Pulse Ox 01/31/23 08:30 97.7 F 93 18 104/58 97 01/31/23 04:00 98.3 F 109 H 18 117/77 96 01/31/23 01:48 98 18 01/31/23 00:00 97.3 F L 98 18 125/81 98 01/30/23 21:50 97.4 F L 117 H 18 107/63 94 L 01/30/23 21:22 98.2 F 97 16 112/67 98 01/30/23 21:20 117 H 18 01/30/23 18:06 100 18 116/69 97 01/30/23 16:58 115 H 20 110/52 94 L 01/30/23 14:36 97.2 F L 109 H 15 115/79 97 Intake and Output 01/30/23 01/31/23 01/31/23 22:59 06:59 14:59 Other: Voiding Method Bedside Commode Bedside Commode # Voids 1 Weight 81.647 kg PHYSICAL EXAM: VITAL SIGNS: [As above] GENERAL: Sitting up in bed, no acute distress. HEENT: Normocephalic, Conjunctivae normal. eyes normal. NECK: Supple, No JVD. No thyroid enlargement. No LNs CARDIOVASCULAR: S1, S2 regular.No murmur RESPIRATION: Unlabored, Breath sounds diminished in the bases. No rhonchi or crackles. No bronchial breathing. ABDOMEN: Soft, nondistended, nontender . No guarding. no masses palpable. No ascites, No hepatosplenomegaly.Bowel sounds heard. LEGS: Positive edema, bilateral lower extremities wrapped PSYCHIATRY: Alert and oriented X3, mood and affect normal. NERVOUS SYSTEM: Cranial N 2-12 grossly normal. Diffuse weakness, No focal deficits. Strength and sensation grossly intact. Skin: Warm and dry, no rash Results CBC & Chem 7: 01/31/23 07:31 01/31/23 07:31 Labs: Abnormal Lab Results - Last 24 Hours (Table) 01/30/23 01/30/23 01/31/23 Range/Units 15:21 15:21 07:31 RBC 3.72 L (3.80-5.40) m/uL Sodium 134 L (137-145) mmol/L Potassium 2.7 L* (3.5-5.1) mmol/L Chloride 69 L* (98-107) mmol/L Carbon Dioxide 49 H* (22-30) mmol/L BUN 43 H (7-17) mg/dL Creatinine 1.65 H (0.52-1.04) mg/dL Glucose 128 H (74-99) mg/dL Calcium (8.4-10.2) mg/dL Total Bilirubin 1.9 H (0.2-1.3) mg/dL AST 44 H (14-36) U/L Troponin I 0.062 H* (0.000-0.034) ng/mL Total Protein (6.3-8.2) g/dL Albumin (3.5-5.0) g/dL 01/31/23 Range/Units 07:31 RBC (3.80-5.40) m/uL Sodium 132 L (137-145) mmol/L Potassium 2.5 L* (3.5-5.1) mmol/L Chloride 75 L (98-107) mmol/L Carbon Dioxide 47 H* (22-30) mmol/L BUN 36 H (7-17) mg/dL Creatinine 1.29 H (0.52-1.04) mg/dL Glucose (74-99) mg/dL Calcium 8.1 L (8.4-10.2) mg/dL Total Bilirubin 1.6 H (0.2-1.3) mg/dL AST (14-36) U/L Troponin I (0.000-0.034) ng/mL Total Protein 5.3 L (6.3-8.2) g/dL Albumin 3.1 L (3.5-5.0) g/dL Thrombosis Risk Factor Assmnt - Choose All That Apply Any of the Below Risk Factors Present?: Yes Each Factor Represents 1 point: Obesity (BMI >25), Swollen legs (current) Each Risk Factor Represents 2 Points: Age 61-74 years Thrombosis Risk Factor Assessment Total Risk Factor Score: 4 Thrombosis Risk Factor Assessment Level: Moderate Risk Assessment and Plan Assessment: Intractable nausea and vomiting secondary to large hiatal hernia per recent EGD on 10/18 Dehydration secondary to the above Acute renal failure secondary to the above Hypokalemia, severe History of antral gastritis Nonpressure chronic ulcers of bilateral lower extremities, wound care team following Chronic intermittent asthma, stable PONV Diabetes mellitus Hypertension History of left breast cancer status post left mastectomy Plan: Continue on current medication regime ,monitoring and symptomatic treatment. Antiemetics, IV fluid fluid hydration with potassium ordered. Potassium replacement protocol ordered. Recheck potassium level this afternoon. Diuretics currently on hold.Close monitoring of renal function, electrolytes with repeat labs ordered for a.m. Nephrology, wound care and nephrology consults in place, recommendations pending. The impression and plan of care has been dictated as directed. : I performed a history and examination of this patient, discussed the same with the dictator. I agree with the dictator's note ,documented as a scribe. Any additional findings or plans will be noted.
[2023-01-31] MEDS: ENOXAPARIN 40 MG/0.4 ML SYRINGE SQ SCH (13:27)
[2023-01-31] MEDS: 0.9% NACL WITH KCL 40 MEQ/L 1,000 ML IV SCH ×2 (13:31→21:24)
[2023-01-31 15:10] LABS: Appearance,Urine Clear (Clear); Bilirubin,Urine 1+ (Negative); Blood,Urine Negative (Negative); Color,Urine Yellow; Glucose,Urine (UA) Negative (Negative); Ketones,Urine 2+ (Negative); Leukocyte Esterase,Urine Negative (Negative); Nitrite,Urine Negative (Negative); PH, Urine 5.5 (5.0-8.0); Protein,Urine Trace (Negative)
--- NOTE | 2023-01-31 15:36 | CT ---
EXAMINATION TYPE: CT ChestAbdPelvis w con CT DLP: 1205.9 mGycm, Automated exposure control for dose reduction was used. DATE OF EXAM: 01/31/2023 3:19 PM COMPARISON: CT chest 06/17/2020. CLINICAL INDICATION:Female, 67 years old with history of abdominal pain; PHH, abdominal pain Technique: Multiple axial images of the chest, abdomen, and pelvis were obtained following the intrav enous administration of 100 mL Isovue-300. Oral contrast was administered. Two-dimensional coronal an d sagittal reconstructions were obtained. Findings: CHEST: LUNGS/ PLEURA: Small bilateral pleural effusions with associated atelectasis. Probable posterior osiel tment radiation changes of the left lung. AIRWAY: Patent and unremarkable.. HEART: Size within normal limits. No pericardial effusion. MEDIASTINUM: No gross evidence of adenopathy. VASCULATURE: No aortic aneurysm. MUSCULOSKELETAL: No acute osseous abnormalities. No aggressive osseous lesion. SOFT TISSUES/LYMPH NODES: Multiple surgical clips within the left axilla with left mastectomy changes . LOWER NECK: No significant findings. ABDOMEN: ABDOMEN LIVER: No focal lesion. Subtle nodular contour to the liver. GALLBLADDER AND BILE DUCTS: Cholelithiasis. No biliary duct dilatation. PANCREAS: Grossly unremarkable. SPLEEN: Unremarkable. ADRENAL GLANDS: Unremarkable. KIDNEYS AND URETERS: No evidence of hydronephrosis or renal calculus. The kidneys enhance symmetrical ly. Prominent left extra renal pelvis. PELVIS BLADDER: Unremarkable REPRODUCTIVE: Heterogenous appearance to the anteverted uterus. Right adnexal cystic lesion measuring up to 2.9 cm. ABDOMEN & PELVIS STOMACH AND BOWEL: Moderately distended fluid-filled esophagus. Small hiatal hernia suggested. No def initive focal bowel wall thickening. Enteric contrast reaches the mid small bowel. Distal colonic div erticulosis without evidence for acute diverticulitis. No evidence of bowel obstruction. PERITONEUM: No evidence of pneumoperitoneum. Large ascites. VASCULATURE: No evidence of aortic aneurysm. MUSCULOSKELETAL: No acute osseous abnormalities. Scoliotic curvature. Multilevel degenerative changes of the lumbar spine. LYMPH NODES: No gross evidence for lymphadenopathy. SOFT TISSUE/ABDOMINAL WALL: Mild diffuse anasarca. IMPRESSION: 1. Large volume ascites. 2. Heterogenous appearance to the anteverted uterus with a right adnexal cystic lesion measuring up t o 2.9 cm. Further evaluation with pelvic ultrasound is recommended. 3. Colonic diverticulosis without evidence for acute diverticulosis. 4. Mildly distended fluid-filled esophagus. This could be related to esophagitis versus reflux. This can be further evaluated with esophagram as clinically indicated. 5. Cholelithiasis. 6. Small bilateral pleural effusions with associated atelectasis. 7. Questionable subtle nodular contour to the liver. Correlate with liver function tests for cirrhosi s.
[2023-01-31 16:59] LABS: Glucose,Whole Blood 73 mg/dL (70-110)
[2023-01-31] MEDS: METOPROLOL TARTRATE 12.5 MG TAB PO SCH (17:47)
[2023-01-31 18:38] LABS: Magnesium 2.2 mg/dL (1.6-2.3)
[2023-01-31 18:40] LABS: Potassium 2.7 mmol/L (3.5-5.1)
--- NOTE | 2023-01-31 18:52 | P.GSCN ---
History of Present Illness Consult date: 01/31/23 Reason for Consult: Nausea and vomiting, history of large hiatal hernia History of present illness: this is a 67-year-old female who had several week history of chronic nausea and vomiting. Patient states that she underwent EGD by Dr. Muniz. She was told she had a large hiatal hernia. Patient states that she has had issues in keeping food down over the last several weeks. She has chronic nausea and vomiting. Past Medical History Past Medical History: Asthma, Cancer, Diabetes Mellitus, Hypertension, Neurologic Disorder Additional Past Medical History / Comment(s): MIGRAINES. RLS. HX LT BREAST CANCER History of Any Multi-Drug Resistant Organisms: None Reported Past Surgical History: Appendectomy, Breast Surgery, Orthopedic Surgery Additional Past Surgical History / Comment(s): LT MASTECTOMY. BILAT Carpal tunnel. COLONOSCOPY. thoracentesis Past Anesthesia/Blood Transfusion Reactions: Motion Sickness, Postoperative Nausea & Vomiting (PONV) Past Psychological History: No Psychological Hx Reported Smoking Status: Never smoker Past Alcohol Use History: None Reported Past Drug Use History: None Reported - Past Family History Father Family Medical History: Cancer Additional Family Medical History / Comment(s): COLON Sister(s) Family Medical History: Cancer Additional Family Medical History / Comment(s): THYROID Medications and Allergies Home Medications Medication Instructions Recorded Confirmed Type Furosemide [Lasix] 40 mg PO BID 06/23/18 01/30/23 History Metoprolol Tartrate [Lopressor] 12.5 mg PO DAILY@1500 06/23/18 01/30/23 History Metoprolol Tartrate [Lopressor] 25 mg PO BID 06/23/18 01/30/23 History Losartan Potassium [Cozaar] 25 mg PO DAILY 06/30/20 01/30/23 History Pramipexole [Mirapex] 1 mg PO BID 06/30/20 01/30/23 History Rosuvastatin Calcium 5 mg PO DAILY 06/30/20 01/30/23 History Spironolactone 25 mg PO DAILY 06/30/20 01/30/23 History metFORMIN HCL [Glucophage] 500 mg PO TID 06/30/20 01/30/23 History Pantoprazole [Protonix] 40 mg PO BID 01/30/23 01/30/23 History Allergies Allergy/AdvReac Type Severity Reaction Status Date / Time lisinopril Allergy Cough Verified 01/30/23 17:52 metolazone Allergy Unknown Verified 01/30/23 17:52 prednisone Allergy FEELS LIKE Verified 01/30/23 17:52 BODY IS ON FIRE cephalexin [From Keflex] AdvReac DIZZY Verified 01/30/23 17:52 Surgical - Exam Vital Signs Temp Pulse Resp BP Pulse Ox 97.2 F L 109 H 15 115/79 97 01/30/23 14:36 01/30/23 14:36 01/30/23 14:36 01/30/23 14:36 01/30/23 14:36 - General well developed, moderate distress - Eyes PERRL - ENT normal pinna - Neck no masses - Respiratory normal expansion - Cardiovascular Rhythm: regular - Abdomen Abdomen: soft, non tender Results - Labs 01/31/23 07:31 01/31/23 18:07 Abnormal Lab Results - Last 24 Hours (Table) 01/30/23 01/31/23 01/31/23 Range/Units 14:55 07:31 07:31 RBC 3.72 L (3.80-5.40) m/uL Sodium 132 L (137-145) mmol/L Potassium 2.5 L* (3.5-5.1) mmol/L Chloride 75 L (98-107) mmol/L Carbon Dioxide 47 H* (22-30) mmol/L BUN 36 H (7-17) mg/dL Creatinine 1.29 H (0.52-1.04) mg/dL Calcium 8.1 L (8.4-10.2) mg/dL Total Bilirubin 1.6 H (0.2-1.3) mg/dL Total Protein 5.3 L (6.3-8.2) g/dL Albumin 3.1 L (3.5-5.0) g/dL Urine Protein Trace H (Negative) Urine Ketones 2+ H (Negative) Urine Bilirubin 1+ H (Negative) 01/31/23 Range/Units 18:07 RBC (3.80-5.40) m/uL Sodium (137-145) mmol/L Potassium 2.7 L* (3.5-5.1) mmol/L Chloride (98-107) mmol/L Carbon Dioxide (22-30) mmol/L BUN (7-17) mg/dL Creatinine (0.52-1.04) mg/dL Calcium (8.4-10.2) mg/dL Total Bilirubin (0.2-1.3) mg/dL Total Protein (6.3-8.2) g/dL Albumin (3.5-5.0) g/dL Urine Protein (Negative) Urine Ketones (Negative) Urine Bilirubin (Negative) Diabetes panel 01/31/23 01/31/23 Range/Units 07:31 18:07 Sodium 132 L (137-145) mmol/L Potassium 2.5 L* 2.7 L* (3.5-5.1) mmol/L Chloride 75 L (98-107) mmol/L Carbon Dioxide 47 H* (22-30) mmol/L BUN 36 H (7-17) mg/dL Creatinine 1.29 H (0.52-1.04) mg/dL Glucose 92 (74-99) mg/dL Calcium 8.1 L (8.4-10.2) mg/dL AST 36 (14-36) U/L ALT 22 (4-34) U/L Alkaline Phosphatase 71 (38-126) U/L Total Protein 5.3 L (6.3-8.2) g/dL Albumin 3.1 L (3.5-5.0) g/dL Calcium panel 01/31/23 Range/Units 07:31 Calcium 8.1 L (8.4-10.2) mg/dL Phosphorus 3.2 (2.5-4.5) mg/dL Albumin 3.1 L (3.5-5.0) g/dL Pituitary panel 01/31/23 01/31/23 Range/Units 07:31 18:07 Sodium 132 L (137-145) mmol/L Potassium 2.5 L* 2.7 L* (3.5-5.1) mmol/L Chloride 75 L (98-107) mmol/L Carbon Dioxide 47 H* (22-30) mmol/L BUN 36 H (7-17) mg/dL Creatinine 1.29 H (0.52-1.04) mg/dL Glucose 92 (74-99) mg/dL Calcium 8.1 L (8.4-10.2) mg/dL Adrenal panel 01/31/23 01/31/23 Range/Units 07:31 18:07 Sodium 132 L (137-145) mmol/L Potassium 2.5 L* 2.7 L* (3.5-5.1) mmol/L Chloride 75 L (98-107) mmol/L Carbon Dioxide 47 H* (22-30) mmol/L BUN 36 H (7-17) mg/dL Creatinine 1.29 H (0.52-1.04) mg/dL Glucose 92 (74-99) mg/dL Calcium 8.1 L (8.4-10.2) mg/dL Total Bilirubin 1.6 H (0.2-1.3) mg/dL AST 36 (14-36) U/L ALT 22 (4-34) U/L Alkaline Phosphatase 71 (38-126) U/L Total Protein 5.3 L (6.3-8.2) g/dL Albumin 3.1 L (3.5-5.0) g/dL - Imaging CT scan - abdomen: report reviewed ( CAT scan of the head is reviewed. There is evidence of a hiatal hernia. There is large volume ascites. There is also cholelithiasis.) Assessment and Plan Assessment: Chronic nausea with vomiting. Patient appears to have new onset ascites. T his will need to be worked up. H her hiatal hernia as noted on CAT scan. The patient will need to undergo repeat EGD. She may benefit from paracentesis.
[2023-01-31] MEDS: PANTOPRAZOLE 40 MG/10 ML VIAL IVP SCH (19:57)
[2023-01-31 20:52] LABS: Glucose,Whole Blood 113 mg/dL (70-110)
[2023-02-01] MEDS: 0.9% NACL WITH KCL 40 MEQ/L 1,000 ML IV SCH ×3 (04:10→14:54)
[2023-02-01 06:30] LABS: Glucose,Whole Blood 91 mg/dL (70-110)
[2023-02-01] MEDS: PRAMIPEXOLE 1 MG TAB PO SCH ×2 (07:27→19:37)
[2023-02-01] MEDS: PANTOPRAZOLE 40 MG/10 ML VIAL IVP SCH ×2 (07:27→19:36)
[2023-02-01] MEDS: ENOXAPARIN 40 MG/0.4 ML SYRINGE SQ SCH (07:27)
[2023-02-01] MEDS: ONDANSETRON 4 MG/2 ML VIAL IVP PRN (07:27)
[2023-02-01] MEDS: ATORVASTATIN 10 MG TAB PO SCH (07:27)
[2023-02-01] MEDS: METOPROLOL TARTRATE 25 MG TAB PO SCH ×2 (07:27→19:36)
[2023-02-01] MEDS: SPIRONOLACTONE 25 MG TAB PO SCH (07:27)
--- NOTE | 2023-02-01 09:05 | P.PN ---
Progress Note - Text Progress Note Date: 02/01/23 Patient is resting comfortably in her bed. She has no significant abdominal pain. She does feel some epigastric pressure. She states she is unable to eat. On exam vital signs appear stable. Abdomen soft there is minimal distention there is no rebound or guarding. Patient underwent CAT scan yesterday which shows large volume ascites. She'll undergo paracentesis today. She also appears to have a symptomatically cholelithiasis. The patient has had poor nutrition for several weeks. I r ecommended a PICC line and TPN. Dietary will be consult for management of TPN.
[2023-02-01 09:08] LABS: Basophils % (A) 0 %; Eosinophils % (A) 1 %; HCT 37.5 % (34.0-46.0); HGB 11.7 gm/dL (11.4-16.0); Lymphocytes # (A) 1.2 k/uL (1.0-4.8); Lymphocytes % (A) 27 %; MCHC 31.2 g/dL (31.0-37.0); Mean Platelet Volume 8.8; Monocytes # (A) 0.5 k/uL (0-1.0); Monocytes % (A) 12 %; Neutrophils # (A) 2.7 k/uL (1.3-7.7); Neutrophils % (A) 59 %; Platelet Count 262 k/uL (150-450); RBC 3.91 m/uL (3.80-5.40); RDW 12.7 % (11.5-15.5); WBC 4.6 k/uL (3.8-10.6)
[2023-02-01 09:31] LABS: African American GFR (CKD) 76 (>60 ml/min/1.73 sqM); Blood Urea Nitrogen 28 mg/dL (7-17); Calcium 7.9 mg/dL (8.4-10.2); Chloride 85 mmol/L (98-107); Glucose 96 mg/dL (74-99); Non-African American GFR(CKD) 66 (>60 ml/min/1.73 sqM); Potassium 3.5 mmol/L (3.5-5.1); Sodium 135 mmol/L (137-145)
[2023-02-01 09:37] LABS: Anion Gap 8 mmol/L
[2023-02-01 09:43] LABS: Carbon Dioxide 42 mmol/L (22-30)
[2023-02-01 09:54] LABS: Magnesium 2.2 mg/dL (1.6-2.3); Phosphorus 2.4 mg/dL (2.5-4.5)
[2023-02-01] MEDS ORDERED: POTASSIUM CHLORIDE ER 20 MEQ TAB.ER PO STA (09:58)
--- NOTE | 2023-02-01 10:39 | P.PN ---
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 Reports she has not been able to keep any of her medications down. Denies abdominal pain.Patient previously had symptoms of gastroesophageal reflux disease, nausea and vomiting over 3 months prior to visit with GI. She completed an EGD with Dr. Stephanie Young,GI 10/19/22, reporting a large hiatal hernia, mild antral gastritis, biopsies obtained, Protonix 40 twice a day initiated and patient was referred to Dr. Cesar, general surgery, if no improvement in symptoms in 6-8 weeks. Duodenum, biopsy Pathology reported benign small bowel mucosa with intact villous architecture, negative for histopathologic abnormality, H pylori not identified, negative for fungal organisms. Denies chest pain, palpitations or shortness of breath. Afebrile, normal WBC. Hemoglobin 11.8, platelets 296, INR 1.1. Sodium 132, potassium 2.5, chloride 75, bicarb 47, BUN 36 creatinine 1.29. Lactic acid 1.9, phospho wing 3.2, magnesium 2.2, total bili 1.6, troponin 0.062, lipase 75. 02/01/2023 significant improvement of potassium, up to 3.5 , magnesium 2.2.continues to have emesis post consumption of clear liquids-denies nausea. Denies abdominal pain. Abdomen soft despite ct report of large ascites. CT of chest, abdomen and pelvis completed yesterday reporting small hiatal hernia, large volume ascites, anteverted uterus with right adnexal cystic lesion measuring 2.9 cm, colonic diverticulosis, mildly distended fluid-filled esophagus, could be related to esophagitis versus reflux, cholelithiasis, small bilateral pleural effusions with associated atelectasis, questionable septal nodular contour to the liver. PICC line pending ordered for TPN. Objective - Vital Signs Vital signs: Vital Signs Temp 97.7 F 02/01/23 07:23 Pulse 81 02/01/23 07:23 Resp 18 02/01/23 07:23 BP 109/72 02/01/23 07:23 Pulse Ox 96 02/01/23 09:09 FiO2 Intake & Output 01/31/23 02/01/23 02/01/23 18:59 06:59 18:59 Intake Total 1540 Output Total 100 300 Balance -100 1240 Weight 81.647 kg 81.647 kg Intake: Intake, IV Titration 1000 Amount 0.9% NaCl with KCl 40 Meq 1000 /l 1,000 ml @ 130 mls/hr IV .Q7H42M [facility] Rx#: [id number] Oral 540 Output: Urine 100 Emesis 300 Other: Voiding Method Bedside Commode Bedside Commode Bedside Commode External Catheter - Exam PHYSICAL EXAM: VITAL SIGNS: [As above] GENERAL: Sitting up in bed, no acute distress. HEENT: Normocephalic, Conjunctivae normal. eyes normal. NECK: Supple, No JVD. CARDIOVASCULAR: S1, S2 regular.No murmur RESPIRATION: Unlabored, Breath sounds diminished in the bases. ABDOMEN: Soft, nondistended, nontender . No guarding. no masses palpable. LEGS: Positive edema, bilateral lower extremities wrapped PSYCHIATRY: Alert and oriented X3, mood and affect normal. NERVOUS SYSTEM: Cranial N 2-12 grossly normal. Diffuse weakness, No focal deficits. Strength and sensation grossly intact. Skin: Warm and dry, no rash - Labs CBC & Chem 7: 02/01/23 08:22 02/01/23 08:22 Labs: Abnormal Lab Results - Last 24 Hours (Table) 01/30/23 01/31/23 01/31/23 Range/Units 14:55 18:07 20:51 Sodium (137-145) mmol/L Potassium 2.7 L* (3.5-5.1) mmol/L Chloride (98-107) mmol/L Carbon Dioxide (22-30) mmol/L BUN (7-17) mg/dL POC Glucose (mg/dL) 113 H (70-110) mg/dL Calcium (8.4-10.2) mg/dL Phosphorus (2.5-4.5) mg/dL Urine Protein Trace H (Negative) Urine Ketones 2+ H (Negative) Urine Bilirubin 1+ H (Negative) 02/01/23 02/01/23 Range/Units 08:22 08:22 Sodium 135 L (137-145) mmol/L Potassium (3.5-5.1) mmol/L Chloride 85 L (98-107) mmol/L Carbon Dioxide 42 H* (22-30) mmol/L BUN 28 H (7-17) mg/dL POC Glucose (mg/dL) (70-110) mg/dL Calcium 7.9 L (8.4-10.2) mg/dL Phosphorus 2.4 L (2.5-4.5) mg/dL Urine Protein (Negative) Urine Ketones (Negative) Urine Bilirubin (Negative) Assessment and Plan Assessment: Intractable nausea and vomiting secondary to large hiatal hernia per recent EGD on 10/18. CT suggestive of large volume ascites, small hiatal hernia, distended fluid-filled esophagus, questionable subtle nodular contour of the liver Dehydration secondary to the above Acute renal failure secondary to the above Hypokalemia, severe, improving History of antral gastritis CT reporting right adnexal cystic lesion 2.9 cm, further follow-up outpatient. Nonpressure chronic ulcers of bilateral lower extremities, wound care team following Chronic intermittent asthma, stable PONV Diabetes mellitus Hypertension History of left breast cancer status post left mastectomy Plan: Continue on current medication regime ,monitoring and symptomatic treatment. PICC line ordered for TPN. Maintain IV fluid fluid hydration. Potassium replacement as per previously ordered protocol .Close monitoring of renal function, electrolytes,LFTs with repeat labs ordered for a.m. Wound care recommendations per care team pending. Barium swallow ordered with consult for GI, Dr. Stephanie Young on Saturday, when GI services return. The impression and plan of care has been dictated as directed. : I performed a history and examination of this patient, discussed the same with the dictator. I agree with the dictator's note ,documented as a scribe. Any additional findings or plans will be noted.
--- NOTE | 2023-02-01 11:23 | P.GSCN ---
History of Present Illness Consult date: 02/01/23 Reason for Consult: PICC line placement Requesting physician: Anum Hardy History of present illness: This is a 67-year-old female who was admitted for intractable nausea and vomiting who has a history of large hiatal hernia, GERD, asthma, diabetes mellitus, hypertension, neurologic disorder, breast cancer, and chronic ulcers of bilateral lower extremities. Gen. surgery was consulted for intractable nausea and vomiting with a history of large hiatal hernia. Apparently patient is having a difficult time keeping liquids and solid food down for the past several weeks. She was admitted with hypokalemia and dehydration. Concerns for adequate nutrition, therefore request for PICC line and TPN. Vascular surgery was consulted for PICC line placement. She is denying any shortness of breath, chest pain, abdominal pain, states she has vomiting after eating. Scheduled for paracentesis this afternoon for find ings of large amount ascites on CT of the abdomen and pelvis. Denies any previous history of known liver disease or previous ascites or paracentesis. Review of Systems A 14 point review systems was completed all pertinent positives and negatives as stated in the HPI. Past Medical History Past Medical History: Asthma, Cancer, Diabetes Mellitus, Hypertension, Neurologic Disorder Additional Past Medical History / Comment(s): MIGRAINES. RLS. HX LT BREAST CANCER History of Any Multi-Drug Resistant Organisms: None Reported Past Surgical History: Appendectomy, Breast Surgery, Orthopedic Surgery Additional Past Surgical History / Comment(s): LT MASTECTOMY. BILAT Carpal tunnel. COLONOSCOPY. thoracentesis Past Anesthesia/Blood Transfusion Reactions: Motion Sickness, Postoperative Nausea & Vomiting (PONV) Past Psychological History: No Psychological Hx Reported Smoking Status: Never smoker Past Alcohol Use History: None Reported Past Drug Use History: None Reported - Past Family History Father Family Medical History: Cancer Additional Family Medical History / Comment(s): COLON Sister(s) Family Medical History: Cancer Additional Family Medical History / Comment(s): THYROID Medications and Allergies Home Medications Medication Instructions Recorded Confirmed Type Furosemide [Lasix] 40 mg PO BID 06/23/18 01/30/23 History Metoprolol Tartrate [Lopressor] 12.5 mg PO DAILY@1500 06/23/18 01/30/23 History Metoprolol Tartrate [Lopressor] 25 mg PO BID 06/23/18 01/30/23 History Losartan Potassium [Cozaar] 25 mg PO DAILY 11/05/20 06/07/23 History Pramipexole [Mirapex] 1 mg PO BID 06/30/20 01/30/23 History Rosuvastatin Calcium 5 mg PO DAILY 06/30/20 01/30/23 History Spironolactone 25 mg PO DAILY 06/30/20 01/30/23 History metFORMIN HCL [Glucophage] 500 mg PO TID 06/30/20 01/30/23 History Pantoprazole [Protonix] 40 mg PO BID 01/30/23 01/30/23 History Allergies Allergy/AdvReac Type Severity Reaction Status Date / Time lisinopril Allergy Cough Verified 01/30/23 17:52 metolazone Allergy Unknown Verified 01/30/23 17:52 prednisone Allergy FEELS LIKE Verified 01/30/23 17:52 BODY IS ON FIRE cephalexin [From Keflex] AdvReac DIZZY Verified 01/30/23 17:52 Surgical - Exam Vital Signs Temp Pulse Resp BP Pulse Ox 97.2 F L 109 H 15 115/79 97 01/30/23 14:36 01/30/23 14:36 01/30/23 14:36 01/30/23 14:36 01/30/23 14:36 General appearance: The patient is alert, oriented, appears in no acute distress. HET: Head is normocephalic and atraumatic. Pupils are equal and reactive. Neck: Supple. Heart: Regular. Lungs: Equal expansion, normal respiratory effort. Abdomen: Soft, nontender, nondistended. Extremities: Normal skin color and turgor. Neurological: Alert and oriented. Results - Labs 02/01/23 08:22 02/01/23 08:22 Abnormal Lab Results - Last 24 Hours (Table) 01/30/23 01/31/23 01/31/23 Range/Units 14:55 18:07 20:51 Sodium (137-145) mmol/L Potassium 2.7 L* (3.5-5.1) mmol/L Chloride (98-107) mmol/L Carbon Dioxide (22-30) mmol/L BUN (7-17) mg/dL POC Glucose (mg/dL) 113 H (70-110) mg/dL Calcium (8.4-10.2) mg/dL Phosphorus (2.5-4.5) mg/dL Urine Protein Trace H (Negative) Urine Ketones 2+ H (Negative) Urine Bilirubin 1+ H (Negative) 02/01/23 02/01/23 Range/Units 08:22 08:22 Sodium 135 L (137-145) mmol/L Potassium (3.5-5.1) mmol/L Chloride 85 L (98-107) mmol/L Carbon Dioxide 42 H* (22-30) mmol/L BUN 28 H (7-17) mg/dL POC Glucose (mg/dL) (70-110) mg/dL Calcium 7.9 L (8.4-10.2) mg/dL Phosphorus 2.4 L (2.5-4.5) mg/dL Urine Protein (Negative) Urine Ketones (Negative) Urine Bilirubin (Negative) Diabetes panel 01/31/23 02/01/23 Range/Units 18:07 08:22 Sodium 135 L (137-145) mmol/L Potassium 2.7 L* 3.5 (3.5-5.1) mmol/L Chloride 85 L (98-107) mmol/L Carbon Dioxide 42 H* (22-30) mmol/L BUN 28 H (7-17) mg/dL Creatinine 0.91 (0.52-1.04) mg/dL Glucose 96 (74-99) mg/dL Calcium 7.9 L (8.4-10.2) mg/dL Calcium panel 02/01/23 02/01/23 Range/Units 08:22 08:22 Calcium 7.9 L (8.4-10.2) mg/dL Phosphorus 2.4 L (2.5-4.5) mg/dL Pituitary panel 01/31/23 02/01/23 Range/Units 18:07 08:22 Sodium 135 L (137-145) mmol/L Potassium 2.7 L* 3.5 (3.5-5.1) mmol/L Chloride 85 L (98-107) mmol/L Carbon Dioxide 42 H* (22-30) mmol/L BUN 28 H (7-17) mg/dL Creatinine 0.91 (0.52-1.04) mg/dL Glucose 96 (74-99) mg/dL Calcium 7.9 L (8.4-10.2) mg/dL Adrenal panel 01/31/23 02/01/23 Range/Units 18:07 08:22 Sodium 135 L (137-145) mmol/L Potassium 2.7 L* 3.5 (3.5-5.1) mmol/L Chloride 85 L (98-107) mmol/L Carbon Dioxide 42 H* (22-30) mmol/L BUN 28 H (7-17) mg/dL Creatinine 0.91 (0.52-1.04) mg/dL Glucose 96 (74-99) mg/dL Calcium 7.9 L (8.4-10.2) mg/dL Assessment and Plan Assessment: 1. Intractable nausea and vomiting 2. Malnutrition secondary to above 3. Hypokalemia secondary to above, improving 4. Dehydration secondary to above Plan: 1. Plan for PICC line placement 2. TPN per dietitian Thank you for this consultation. The impression and plan of care has been dictated as directed. Dr. Smith I performed a history and examination of this patient, discussed the same with the dictator. I agree with the dictator's note ,documented as a scribe. Any additional findings or plans will be noted.
--- NOTE | 2023-02-01 11:32 | P.NPCON ---
History of Present Illness - Reason for Consult hypokalemia - History of Present Illness Patient is a 67-year-old female with history of type 2 diabetes, hypertension, breast cancer status post left mastectomy and chronic bilateral lower extremity ulcers and cellulitis. Patient is admitted to the hospital with history of nausea and vomiting which has been quite worse over the last 1 week. Patient states she has had vomiting and nausea for the past 3 months now. She has had workup with GI. No history of kidney disease Potassium was 2.7 on admission serum creatinine was 1.6 and now down to 0.9. Patient states she has been voiding well. Patient is also maintained on loop diuretics at home for chronic lower extremity edema and. Patient did state that she was not taking her diuretics for the past week or so because of the severe nausea and vomiting. She feels that her legs are now more swollen. No complaints of shortness of breath. Review of Systems As per HPI Past Medical History Past Medical History: Asthma, Cancer, Diabetes Mellitus, Hypertension, Neurologic Disorder Additional Past Medical History / Comment(s): MIGRAINES. RLS. HX LT BREAST CANCER History of Any Multi-Drug Resistant Organisms: None Reported Past Surgical History: Appendectomy, Breast Surgery, Orthopedic Surgery Additional Past Surgical History / Comment(s): LT MASTECTOMY. BILAT Carpal tunnel. COLONOSCOPY. thoracentesis Past Anesthesia/Blood Transfusion Reactions: Motion Sickness, Postoperative Nausea & Vomiting (PONV) Past Psychological History: No Psychological Hx Reported Smoking Status: Never smoker Past Alcohol Use History: None Reported Past Drug Use History: None Reported - Past Family History Father Family Medical History: Cancer Additional Family Medical History / Comment(s): COLON Sister(s) Family Medical History: Cancer Additional Family Medical History / Comment(s): THYROID Medications and Allergies Home Medications Medication Instructions Recorded Confirmed Type Furosemide [Lasix] 40 mg PO BID 06/23/18 01/30/23 History Metoprolol Tartrate [Lopressor] 12.5 mg PO DAILY@1500 06/23/18 01/30/23 History Metoprolol Tartrate [Lopressor] 25 mg PO BID 06/23/18 01/30/23 History Losartan Potassium [Cozaar] 25 mg PO DAILY 06/30/20 01/30/23 History Pramipexole [Mirapex] 1 mg PO BID 06/30/20 01/30/23 History Rosuvastatin Calcium 5 mg PO DAILY 06/30/20 01/30/23 History Spironolactone 25 mg PO DAILY 06/30/20 01/30/23 History metFORMIN HCL [Glucophage] 500 mg PO TID 06/30/20 01/30/23 History Pantoprazole [Protonix] 40 mg PO BID 01/30/23 01/30/23 History Allergies Allergy/AdvReac Type Severity Reaction Status Date / Time lisinopril Allergy Cough Verified 01/30/23 17:52 metolazone Allergy Unknown Verified 01/30/23 17:52 prednisone Allergy FEELS LIKE Verified 01/30/23 17:52 BODY IS ON FIRE cephalexin [From Keflex] AdvReac DIZZY Verified 01/30/23 17:52 Physical Exam Vitals: Vital Signs Temp Pulse Resp BP Pulse Ox 02/01/23 09:09 96 02/01/23 07:23 97.7 F 81 18 109/72 96 02/01/23 04:00 94 16 98/54 99 02/01/23 00:00 74 16 91/52 91 L 01/31/23 20:00 98.1 F 76 19 105/55 95 01/31/23 16:30 97.9 F 86 18 103/57 99 01/31/23 14:44 90 18 01/31/23 12:40 97.7 F 90 18 112/55 97 01/31/23 11:48 93 18 Intake and Output 01/31/23 02/01/23 02/01/23 22:59 06:59 14:59 Intake Total 1540 Output Total 300 Balance 1540 -300 Intake: Intake, IV Titration 1000 Amount 0.9% NaCl with KCl 40 Meq 1000 /l 1,000 ml @ 130 mls/hr IV .Q7H42M [facility] [place] Rx#: [id number] Oral 540 Output: Emesis 300 Other: Voiding Method Bedside Commode Bedside Commode Bedside Commode External Catheter Weight 81.647 kg Patient is awake, comfortable, no acute distress Examination of the heart S1 and S2 Examination of the lungs bilateral breath sounds are heard Abdomen is soft nontender Examination of the lower extremities shows chronic skin changes chronic edema. Both legs are currently wrapped [employer] exam grossly intact Results - Lab Results Most recent lab results Calcium 7.9 mg/dL (8.4-10.2) L 02/01/23 08:22 Phosphorus 2.4 mg/dL (2.5-4.5) L 02/01/23 08:22 Magnesium 2.2 mg/dL (1.6-2.3) 02/01/23 08:22 02/01/23 08:22 02/01/23 08:22 Assessment and Plan Assessment: 1. Hypokalemia associated with severe nausea and vomiting along with use of loop diuretics prior to admission. Potassium has been replaced. Magnesium was 2.2. 2. Metabolic alkalosis secondary to vomiting and diuresis 3. Nausea and vomiting which has been present for about 3 months and significantly worsened over the past week or so. Patient has a large hiatal hernia. Patient has had GI workup with endoscopies previously. Surgery has been consult it 4. Chronic bilateral lower extremity edema with venous stasis and chronic ulcers maintained on loop diuretics as outpatient. Plan: Continue to hold diuretics for now Decrease IV fluids Continue to replace potassium aggressively Repeat labs in a.m. Thank you for the consultation. We will continue to follow the patient with you during her hospitalization.
[2023-02-01 12:01] LABS: Glucose,Whole Blood 87 mg/dL (70-110)
[2023-02-01] MEDS ORDERED: LIDOCAINE 1% INJ 10MG/ML (5 ML VIAL-PF) SQ ONE (14:19)
[2023-02-01] MEDS: METOPROLOL TARTRATE 12.5 MG TAB PO SCH (14:56)
--- NOTE | 2023-02-01 15:01 | P.OP ---
Date of Procedure: 02/01/23 Description of Procedure: Preoperative diagnosis: Need for IV access, Need for TPN Postoperative diagnosis: Same Procedure: 1. Ultrasound guided right brachial vein access 2. Fluoroscopic assisted peripherally inserted central venous catheter placement via existing midline catheter Surgeon: Kendy Smith D.O. EBL: Less than 5 mL IV fluids: See records Urine output: Not measured Drains: None Complications: None immediately apparent Condition: Stable to room Operative indication and findings: Patient is a 67-year-old female in need of TPN therefore PICC line was requested. Risks and benefits were discussed she seemingly understood and wished to proceed. Procedure in detail: Patient was taken to the special suite and placed in supine position. Right upper extremity was prepped and draped in usual sterile fashion, procedure timeout was performed, all parties are in agreement. Ultrasound was utilized. The cephalic and basilic veins were very tiny in nature and not thought to be adequate axis therefore was necessary to utilize a brachial vein. The skin was anesthetized, the ultrasound was utilized under direct visualization with permanently sort image, the brachial vein was accessed with return of nonpulsatile dark venous blood. Fluoroscopic assistance was utilized to place a wireand a tear-away sheath. The PICC line was sized with fluoroscopic assistance to 45 cm and cut appropriately. It was placed the tear- away sheath was removed. The PICC line aspirated and flushed freely. A dressing was placed. The patient tolerated the procedure well.
--- NOTE | 2023-02-01 15:16 | US ---
EXAMINATION TYPE: US paracentesis abd w/image DATE OF EXAM: 02/01/2023 CLINICAL HISTORY: 67-year-old female referred for fluid aspiration and analysis for large ascites. The procedure was discussed with the patient. The risks, complications, benefits, and alternatives we re discussed and any questions were answered. Informed consent was obtained. The patient was placed supine on the ultrasound table and prepped and draped in the usual sterile fashion. All elements of maximal barrier technique were utilized. Ultrasound was utilized to determine the precise skin entry site along the right lower quadrant. Util izing a 6 [place] safety centesis catheter system and trocar technique, access into the right lower qu adrant was obtained. Aspiration yielded a total of 4 L clear straw-colored fluid. Postprocedure scanning showed only trace residual ascites in the lower quadrants. Residual fluid is noted in the perihepatic location via int ercostal views. The patient was extensively manipulated to try and obtain additional fluid. A 60 mL sample was labeled for fluid analysis. The catheter was removed, hemostasis obtained, and a dressing placed. The patient was stable throughout the procedure and remained stable. Sent back to inpatient room. IMPRESSION: Successful paracentesis under ultrasound guidance. Requested laboratory analysis is pending. Note georgette t only 4 L could be obtained and postprocedure scanning showed only trace residual fluid in the lower quadrants. More prominent fluid remains in the perihepatic location, seen through intercostal window s. Laboratory analysis pending.
[2023-02-01] MEDS ORDERED: SODIUM PHOSPHATE 15 MMOL in DEXTROSE 5% IN WATER 250 ML IVPB ONE ×2 (16:00)
[2023-02-01] MEDS ORDERED: MVI, ADULT NO.4 WITH VIT K 10 ML, TRACE (CONC-1ML/DOSE) 1 ML in AMINO ACID 5%-D20W+LYTE... IV SCH ×3 (16:00)
[2023-02-01 16:13] LABS: Glucose,Whole Blood 110 mg/dL (70-110)
[2023-02-01] MEDS ORDERED: POTASSIUM CHLORIDE 40 MEQ in WATER FOR INJECTION 1 100ML.BAG IVPB SCH (16:22)
[2023-02-01] MEDS: POTASSIUM CHLORIDE 20 MEQ in WATER FOR INJECTION 1 100ML.BAG IVPB SCH ×2 (16:38→18:42)
--- NOTE | 2023-02-01 16:48 | IR ---
EXAMINATION TYPE: IR cvc insert >=5 years DATE OF EXAM: 02/01/2023 FLUOROSCOPY Fluoroscopy time of 0.6 minutes was used during left basilic vein catheterization for TPN, IVF. 2 ci ne stacks document/s the procedure. Total DAP: 0.376Gycm.
[2023-02-01 20:16] LABS: Glucose,Whole Blood 221 mg/dL (70-110)
[2023-02-02] MEDS: 0.9% NACL WITH KCL 40 MEQ/L 1,000 ML IV SCH (02:47)
[2023-02-02 06:23] LABS: Glucose,Whole Blood 198 mg/dL (70-110)
--- NOTE | 2023-02-02 09:23 | P.PN ---
Subjective Patient is seen in follow-up for acute kidney injury. Renal function improved. TPN started yesterday. Oral intake remains poor. Only had tea last night. Nonoliguric. Vital signs are stable. General: No acute distress. HEENT: Head exam is unremarkable. LUNGS: No audible rhonchi or wheezes. HEART: Rate and Rhythm are regular. ABDOMEN: Nontender. EXTREMITITES: No edema. Objective - Vital Signs Vital signs: Vital Signs Temp 98.8 F 02/02/23 09:06 Pulse 68 02/02/23 04:00 Resp 18 02/02/23 09:06 BP 100/61 02/02/23 09:06 Pulse Ox 99 02/02/23 09:06 FiO2 Intake & Output 02/01/23 02/02/23 02/02/23 18:59 06:59 18:59 Intake Total 0 540 Output Total 1200 450 Balance -1200 90 Weight 81.647 kg Intake: Oral 0 540 Output: Urine 400 350 Emesis 800 100 Other: Voiding Method Bedside Commode Bedside Commode External Catheter External Catheter - Labs CBC & Chem 7: 02/01/23 08:22 02/01/23 08:22 Labs: Abnormal Lab Results - Last 24 Hours (Table) 02/01/23 02/01/23 02/01/23 Range/Units 08:22 08:22 20:15 Sodium 135 L (137-145) mmol/L Chloride 85 L (98-107) mmol/L Carbon Dioxide 42 H* (22-30) mmol/L BUN 28 H (7-17) mg/dL POC Glucose (mg/dL) 221 H (70-110) mg/dL Calcium 7.9 L (8.4-10.2) mg/dL Phosphorus 2.4 L (2.5-4.5) mg/dL 02/02/23 Range/Units 06:21 Sodium (137-145) mmol/L Chloride (98-107) mmol/L Carbon Dioxide (22-30) mmol/L BUN (7-17) mg/dL POC Glucose (mg/dL) 198 H (70-110) mg/dL Calcium (8.4-10.2) mg/dL Phosphorus (2.5-4.5) mg/dL Assessment and Plan Plan: Assessment: 1. Acute kidney injury mostly prerenal poor and taken diuresis. Improved. Creatinine 1.65 on admission and down to 0.9 as of yesterday. Patient received IV contrast on 01/31/2023 as well. No hydronephrosis noted on CT. 2. Ascites status post paracentesis with 4 L drained 02/01/2023. 3. Hypokalemia secondary to poor intake, diuretics, intracellular shifting from alkalosis. Replaced. 4. Metabolic alkalosis from vomiting and diuresis. 5. Intractable nausea and vomiting. Surgery following. Started on TPN 02/01/2023. 6. Diabetes mellitus. 7. Chronic lower extremity edema with venous stasis. Plan: Hep-Lock IV fluids. TPN per surgery. Morning labs pending. Continue to replace electrolytes as needed.
[2023-02-02] MEDS: ENOXAPARIN 40 MG/0.4 ML SYRINGE SQ SCH (09:35)
[2023-02-02] MEDS: METOPROLOL TARTRATE 25 MG TAB PO SCH ×2 (09:36→20:18)
[2023-02-02] MEDS: PRAMIPEXOLE 1 MG TAB PO SCH ×2 (09:36→20:19)
[2023-02-02] MEDS: SPIRONOLACTONE 25 MG TAB PO SCH (09:36)
[2023-02-02] MEDS: ATORVASTATIN 10 MG TAB PO SCH (09:36)
[2023-02-02] MEDS: PANTOPRAZOLE 40 MG/10 ML VIAL IVP SCH ×2 (09:36→20:19)
[2023-02-02 09:45] LABS: Ionized Calcium 4.2 mg/dL (4.5-5.3)
[2023-02-02 09:52] LABS: ALT 18 U/L (4-34); AST 31 U/L (14-36); African American GFR (CKD) >90 (>60 ml/min/1.73 sqM); Albumin 2.4 g/dL (3.5-5.0); Alkaline Phosphatase 56 U/L (38-126); Blood Urea Nitrogen 23 mg/dL (7-17); Calcium 7.3 mg/dL (8.4-10.2); Chloride 91 mmol/L (98-107); Glucose 169 mg/dL (74-99); Non-African American GFR(CKD) 80 (>60 ml/min/1.73 sqM); Phosphorus 2.5 mg/dL (2.5-4.5); Potassium 4.7 mmol/L (3.5-5.1); Sodium 134 mmol/L (137-145); Total Bilirubin 0.9 mg/dL (0.2-1.3); Total Protein 4.4 g/dL (6.3-8.2)
[2023-02-02 09:58] LABS: Anion Gap 1 mmol/L
[2023-02-02 10:00] LABS: Carbon Dioxide 42 mmol/L (22-30)
[2023-02-02 11:42] LABS: Glucose,Whole Blood 163 mg/dL (70-110)
[2023-02-02] MEDS ORDERED: CALCIUM GLUCONATE IN NACL 2 GM in SALINE 1 100ML.BAG IVPB ONE (12:00)
[2023-02-02] MEDS: METOPROLOL TARTRATE 12.5 MG TAB PO SCH (15:32)
[2023-02-02] MEDS ORDERED: 1: MVI, ADULT NO.4 WITH VIT K 10 ML, TRACE (CONC-1ML/DOSE) 1 ML in AMINO ACID 5%-D20W+LY IV SCH ×3 (16:00)
[2023-02-02] MEDS: 1: MVI, ADULT NO.4 WITH VIT K 10 ML, TRACE (CONC-1ML/DOSE) 1 ML, SODIUM CHLORIDE 4MEQ/ML IV SCH ×8 (17:19)
[2023-02-02 17:56] LABS: Glucose,Whole Blood 208 mg/dL (70-110)
[2023-02-02 23:56] LABS: Glucose,Whole Blood 195 mg/dL (70-110)
[2023-02-03 06:31] LABS: Glucose,Whole Blood 186 mg/dL (70-110)
[2023-02-03] MEDS: 1: MVI, ADULT NO.4 WITH VIT K 10 ML, TRACE (CONC-1ML/DOSE) 1 ML, SODIUM CHLORIDE 4MEQ/ML IV SCH ×16 (06:39→20:20)
[2023-02-03] MEDS: SPIRONOLACTONE 25 MG TAB PO SCH (07:58)
[2023-02-03] MEDS: ATORVASTATIN 10 MG TAB PO SCH (07:58)
[2023-02-03] MEDS: PANTOPRAZOLE 40 MG/10 ML VIAL IVP SCH ×2 (07:58→19:33)
[2023-02-03] MEDS: METOPROLOL TARTRATE 25 MG TAB PO SCH ×2 (07:58→19:33)
[2023-02-03] MEDS: ENOXAPARIN 40 MG/0.4 ML SYRINGE SQ SCH (07:59)
[2023-02-03] MEDS: PRAMIPEXOLE 1 MG TAB PO SCH ×2 (08:01→19:33)
--- NOTE | 2023-02-03 09:30 | P.PN ---
Progress Note - Text Progress Note Date: 02/02/23 The patient had paracentesis yesterday. She had prostate 4 L removed. She states she feels better. She denies any abdominal pain. She is started clear liquid diet and appears to be tolerating it. On exam vital signs are stable. Abdomen soft. Severe protein calorie malnutrition due to chronic nausea and vomiting. Patient will be observed. There is no immediate surgical intervention planned. She will have her diet advanced once she starts tolerating clears.
--- NOTE | 2023-02-03 09:31 | P.PN ---
Progress Note - Text Progress Note Date: 02/03/23 Patient's been tolerating clear liquids. She denies any abdominal pain. On exam vital signs appear stable. Abdomen soft. Status post paracentesis. Patient appears to be improving. She will start on regular diet. She will try eating in the upright position out of bed.
--- NOTE | 2023-02-03 10:03 | P.PN ---
Subjective Patient is seen in follow-up for acute kidney injury. Renal function improved. TPN started 02/01/2023. Oral intake remains poor. Gets nauseous. Nonoliguric. Vital signs are stable. General: No acute distress. HEENT: Head exam is unremarkable. LUNGS: No audible rhonchi or wheezes. HEART: Rate and Rhythm are regular. ABDOMEN: Nontender. EXTREMITITES: No edema. Objective - Vital Signs Vital signs: Vital Signs Temp 98.7 F 02/03/23 07:55 Pulse 79 02/03/23 09:13 Resp 18 02/03/23 09:13 BP 94/57 02/03/23 07:55 Pulse Ox 93 L 02/03/23 08:04 FiO2 Intake & Output 02/02/23 02/03/23 02/03/23 18:59 06:59 18:59 Intake Total 80 1473.333 237 Output Total 400 1000 Balance -320 473.333 237 Intake: Intake, IV Titration 933.333 Amount Sodium Chloride 4Meq/ml 933.333 Vial 32 meq Potassium Chloride 30 meq Sodium Phosphate 15 mmol Magnesium Sulfate gm 0.75 gm Calcium Gluconate 1 gm In Amino Acids 5 %/ Dextrose 20 % 1,000 ml @ 70 mls/hr IV .BY DURATION [facility] Rx#:[id number] Oral 80 540 237 Output: Urine 400 800 Emesis 200 Other: Voiding Method Bedside Commode Bedside Commode Bedside Commode External Catheter External Catheter External Catheter - Labs CBC & Chem 7: 02/01/23 08:22 02/02/23 08:55 Labs: Abnormal Lab Results - Last 24 Hours (Table) 02/02/23 02/02/23 02/02/23 Range/Units 08:55 11:40 17:55 Sodium 134 L (137-145) mmol/L Chloride 91 L (98-107) mmol/L Carbon Dioxide 42 H* (22-30) mmol/L BUN 23 H (7-17) mg/dL Glucose 169 H (74-99) mg/dL POC Glucose (mg/dL) 163 H 208 H (70-110) mg/dL Calcium 7.3 L (8.4-10.2) mg/dL Total Protein 4.4 L (6.3-8.2) g/dL Albumin 2.4 L (3.5-5.0) g/dL 02/02/23 02/03/23 Range/Units 23:55 06:30 Sodium (137-145) mmol/L Chloride (98-107) mmol/L Carbon Dioxide (22-30) mmol/L BUN (7-17) mg/dL Glucose (74-99) mg/dL POC Glucose (mg/dL) 195 H 186 H (70-110) mg/dL Calcium (8.4-10.2) mg/dL Total Protein (6.3-8.2) g/dL Albumin (3.5-5.0) g/dL Assessment and Plan Plan: Assessment: 1. Acute kidney injury mostly prerenal poor and taken diuresis. Improved. Creatinine 1.65 on admission and down to 0.78 as of yesterday. Patient received IV contrast on 01/31/2023 as well. No hydronephrosis noted on CT. UA fairly benign. 2. Ascites status post paracentesis with 4 L drained 02/01/2023. 3. Hypokalemia secondary to poor intake, diuretics, intracellular shifting from alkalosis. Replaced. 4. Metabolic alkalosis from vomiting and diuresis. 5. Intractable nausea and vomiting. Surgery following. Started on TPN 0 02/01/2023. 6. Diabetes mellitus. 7. Chronic lower extremity edema with venous stasis. Plan: Off IV fluids. Status post IV Diamox 1 dose yesterday. TPN per surgery. Continue to replace electrolytes as needed. Morning labs pending.
[2023-02-03 12:11] LABS: Glucose,Whole Blood 180 mg/dL (70-110)
[2023-02-03] MEDS: ONDANSETRON 4 MG/2 ML VIAL IVP PRN (12:30)
--- NOTE | 2023-02-03 13:53 | P.PN ---
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 Reports she has not been able to keep any of her medications down. Denies abdominal pain.Patient previously had symptoms of gastroesophageal reflux disease, nausea and vomiting over 3 months prior to visit with GI. She completed an EGD with Dr. Stephanie Young,GI 10/19/22, reporting a large hiatal hernia, mild antral gastritis, biopsies obtained, Protonix 40 twice a day initiated and patient was referred to Dr. Cesar, general surgery, if no improvement in symptoms in 6-8 weeks. Duodenum, biopsy Pathology reported benign small bowel mucosa with intact villous architecture, negative for histopathologic abnormality, H pylori not identified, negative for fungal organisms. Denies chest pain, palpitations or shortness of breath. Afebrile, normal WBC. Hemoglobin 11.8, platelets 296, INR 1.1. Sodium 132, potassium 2 .5, chloride 75, bicarb 47, BUN 36 creatinine 1.29. Lactic acid 1.9, phosphorus 3.2, magnesium 2.2, total bili 1.6, troponin 0.062, lipase 75. Patient is status post PICC line insertion was starting TPN Renal function is improving; nephrology recommending to discontinue IV fluids and monitor electrolytes Objective - Vital Signs Vital signs: Vital Signs Temp 98.8 F 02/02/23 09:06 Pulse 70 02/02/23 12:16 Resp 18 02/02/23 12:19 BP 97/58 02/02/23 12:16 Pulse Ox 90 L 02/02/23 12:19 FiO2 Intake & Output 02/01/23 02/02/23 02/02/23 18:59 06:59 18:59 Intake Total 0 540 80 Output Total 1200 450 Balance -1200 90 80 Weight 81.647 kg Intake: Oral 0 540 80 Output: Urine 400 350 Emesis 800 100 Other: Voiding Method Bedside Commode Bedside Commode Bedside Commode External Catheter External Catheter External Catheter - Exam GENERAL: Sitting up in bed, no acute distress. HEENT: Normocephalic, Conjunctivae normal. eyes normal. NECK: Supple, No JVD. CARDIOVASCULAR: S1, S2 regular.No murmur RESPIRATION: Unlabored, Breath sounds diminished in the bases. ABDOMEN: Soft, nondistended, nontender . No guarding. no masses palpable. LEGS: Positive edema, bilateral lower extremities wrapped PSYCHIATRY: Alert and oriented X3, mood and affect normal. NERVOUS SYSTEM: Cranial N 2-12 grossly normal. Diffuse weakness, No focal deficits. Strength and sensation grossly intact. Skin: Warm and dry, no rash - Labs CBC & Chem 7: 02/01/23 08:22 02/02/23 08:55 Labs: Abnormal Lab Results - Last 24 Hours (Table) 02/01/23 02/02/23 02/02/23 Range/Units 20:15 06:21 08:55 Sodium 134 L (137-145) mmol/L Chloride 91 L (98-107) mmol/L Carbon Dioxide 42 H* (22-30) mmol/L BUN 23 H (7-17) mg/dL Glucose 169 H (74-99) mg/dL POC Glucose (mg/dL) 221 H 198 H (70-110) mg/dL Calcium 7.3 L (8.4-10.2) mg/dL Ionized Calcium Xu 4.2 L (4.5-5.3) mg/dL Total Protein 4.4 L (6.3-8.2) g/dL Albumin 2.4 L (3.5-5.0) g/dL 02/02/23 Range/Units 11:40 Sodium (137-145) mmol/L Chloride (98-107) mmol/L Carbon Dioxide (22-30) mmol/L BUN (7-17) mg/dL Glucose (74-99) mg/dL POC Glucose (mg/dL) 163 H (70-110) mg/dL Calcium (8.4-10.2) mg/dL Ionized Calcium Xu (4.5-5.3) mg/dL Total Protein (6.3-8.2) g/dL Albumin (3.5-5.0) g/dL Assessment and Plan Assessment: Intractable nausea and vomiting secondary to large hiatal hernia per recent EGD on 10/18. CT suggestive of large volume ascites, small hiatal hernia, distended fluid-filled esophagus, questionable subtle nodular contour of the liver Dehydration secondary to the above Acute renal failure secondary to the above Hypokalemia, severe, improving History of antral gastritis CT reporting right adnexal cystic lesion 2.9 cm, further follow-up outpatient. Nonpressure chronic ulcers of bilateral lower extremities, wound care team following Chronic intermittent asthma, stable PONV Diabetes mellitus Hypertension History of left breast cancer status post left mastectomy Plan: Continue on current medication regime ,monitoring and symptomatic treatment. PICC line ordered for TPN. Maintain IV fluid fluid hydration. Potassium replacement as per previously ordered protocol .Close monitoring of renal function, electrolytes,LFTs with repeat labs ordered for a.m. Wound care recommendations per care team pending. Barium swallow ordered with consult for GI, Dr. Stephanie Young on Saturday, when GI services return.
[2023-02-03] MEDS: METOPROLOL TARTRATE 12.5 MG TAB PO SCH (15:57)
[2023-02-03 16:15] LABS: Potassium 4.1 mmol/L (3.5-5.1)
[2023-02-03 16:16] LABS: African American GFR (CKD) 73 (>60 ml/min/1.73 sqM); Anion Gap 5 mmol/L; Blood Urea Nitrogen 23 mg/dL (7-17); Calcium 7.9 mg/dL (8.4-10.2); Carbon Dioxide 35 mmol/L (22-30); Chloride 92 mmol/L (98-107); Glucose 186 mg/dL (74-99); Magnesium 1.7 mg/dL (1.6-2.3); Non-African American GFR(CKD) 63 (>60 ml/min/1.73 sqM); Phosphorus 2.6 mg/dL (2.5-4.5); Sodium 132 mmol/L (137-145)
[2023-02-03 18:04] LABS: Glucose,Whole Blood 206 mg/dL (70-110)
[2023-02-03] MEDS: FAT EMULSION 20% 250 ML in EMPTY BAG 1 BAG IV SCH (18:05)
[2023-02-04 00:06] LABS: Glucose,Whole Blood 188 mg/dL (70-110)
[2023-02-04 06:01] LABS: Glucose,Whole Blood 199 mg/dL (70-110)
[2023-02-04] MEDS: ENOXAPARIN 40 MG/0.4 ML SYRINGE SQ SCH (08:47)
[2023-02-04] MEDS: PRAMIPEXOLE 1 MG TAB PO SCH ×2 (08:54→21:49)
[2023-02-04] MEDS: SPIRONOLACTONE 25 MG TAB PO SCH (08:54)
[2023-02-04] MEDS: PANTOPRAZOLE 40 MG/10 ML VIAL IVP SCH ×2 (08:54→21:51)
[2023-02-04] MEDS: ATORVASTATIN 10 MG TAB PO SCH (08:54)
[2023-02-04] MEDS: METOPROLOL TARTRATE 25 MG TAB PO SCH ×2 (08:54→21:49)
--- NOTE | 2023-02-04 09:49 | P.CONS ---
History of Present Illness - Reason for Consult Consult date: 02/04/23 Intractable vomiting, patient of Dr. Young Requesting physician: Anum Hardy - Chief Complaint Vomiting, weakness - History of Present Illness This is a 67-year-old female with multiple comorbidities including GERD, asthma, diabetes mellitus, hypertension, neurologic disorder, breast cancer status post left mastectomy, chronic kidney disease, nonpressure chronic ulcers and chronic vomiting who presented to the emergency department last week for intractable vomiting. Patient states she has been vomiting for the last 1-1-1/2 years. She does state that it has gotten much worse over the last 2-3 weeks which she states that she is unable to keep liquids or food down. States that once she swallows and it goes down it will come right back up. She believes that she has lost around 20 pounds in the last few weeks. She has become more weak and dehydrated. She denies any nausea associated with vomiting. Denies any abdominal pain. No hematemesis. She recently saw Dr. Young for outpatient upper endoscopy 10/19/2022 which revealed a large hiatal hernia and mild antral gastritis. Patient then saw nurse practitioner from Dr. Young's office last week, however patient does not recall what they told her. According to last endoscopy note from September patient was supposed to follow-up and if no improvement in symptoms of be referred to general surgeon for possible surgery for hiatal hernia. Patient denies seeing any surgeon in the outpatient setting. Gen. surgery was consulted during this admission. Her diet was advanced however she states she is not able to keep solids down. She had a PICC line placed and TPN was started. This morning she underwent esophagram which is currently pending. During this admission she also had an CT of the chest a bdomen pelvis with contrast that reported large-volume ascites, heterogeneous appearance of to anteverted uterus with right adnexal cystic lesion measuring up to 2.9 cm. Further evaluation with pelvic ultrasound recommended. Colonic diverticulosis without evidence for acute diverticulosis. Mildly distended fluid-filled esophagus. Could be related to esophagitis versus reflux. This can be further evaluated with esophagram as clinically indicated. Cholelithiasis. Small bilateral pleural effusion with associated atelectasis. Questionable subtle nodular contour of liver. Correlate with liver function tests for cirrhosis. Patient did undergo a paracentesis with 4 L removed. She denies any previous history of liver disease are previous paracentesis. No history of alcohol abuse in the past. No fluid studies were collected during the paracentesis. On admission patient was noted to have a total bilirubin of 1.6 with normal AST ALT and alkaline phosphatase, total bilirubin last repeated on 02/02/2023 0.9 AST 31 ALT 18 alkaline phosphatase 56. These labs currently pending. Review of Systems REVIEW OF SYSTEMS: CARDIOPULMONARY: No chest pain or shortness of breath. Gastrointestinal: No epigastric or abdominal pain. Chronic vomiting associated with drinking and eating. No nausea. No hematemesis, coffee-ground emesis. No rectal bleeding, or melena. GENITOURINARY: No dysuria or hematuria. MUSCULOSKELETAL: Reports normal range of motion., Joint pain. SKIN: No rashes. No jaundice. ENDOCRINE: No chills, fevers. No excessive weight gain or loss. No polydipsia or polyuria. PSYCHIATRIC: Unremarkable. NEUROLOGY: No change in mental status. Denies dizziness, headache. ENT: Vision unremarkable. CONSTITUTIONAL: Reports approximate weight loss of 20 pounds. No fever, chills, night sweats. Past Medical History Past Medical History: Asthma, Cancer, Diabetes Mellitus, Hypertension, Neurologic Disorder Additional Past Medical History / Comment(s): MIGRAINES. RLS. HX LT BREAST CANCER History of Any Multi-Drug Resistant Organisms: None Reported Past Surgical History: Appendectomy, Breast Surgery, Orthopedic Surgery Additional Past Surgical History / Comment(s): LT MASTECTOMY. BILAT Carpal tunnel. COLONOSCOPY. thoracentesis Past Anesthesia/Blood Transfusion Reactions: Motion Sickness, Postoperative Nausea & Vomiting (PONV) Past Psychological History: No Psychological Hx Reported Smoking Status: Never smoker Past Alcohol Use History: None Reported Past Drug Use History: None Reported - Past Family History Father Family Medical History: Cancer Additional Family Medical History / Comment(s): COLON Sister(s) Family Medical History: Cancer Additional Family Medical History / Comment(s): THYROID Medications and Allergies Home Medications Medication Instructions Recorded Confirmed Type Furosemide [Lasix] 40 mg PO BID 06/23/18 01/30/23 History Metoprolol Tartrate [Lopressor] 12.5 mg PO DAILY@1500 06/23/18 01/30/23 History Metoprolol Tartrate [Lopressor] 25 mg PO BID 06/23/18 01/30/23 History Losartan Potassium [Cozaar] 25 mg PO DAILY 06/30/20 01/30/23 History Pramipexole [Mirapex] 1 mg PO BID 06/30/20 01/30/23 History Rosuvastatin Calcium 5 mg PO DAILY 06/30/20 01/30/23 History Spironolactone 25 mg PO DAILY 06/30/20 01/30/23 History metFORMIN HCL [Glucophage] 500 mg PO TID 06/30/20 01/30/23 History Pantoprazole [Protonix] 40 mg PO BID 01/30/23 01/30/23 History Allergies Allergy/AdvReac Type Severity Reaction Status Date / Time lisinopril Allergy Cough Verified 01/30/23 17:52 metolazone Allergy Unknown Verified 01/30/23 17:52 prednisone Allergy FEELS LIKE Verified 01/30/23 17:52 BODY IS ON FIRE cephalexin [From Keflex] AdvReac DIZZY Verified 01/30/23 17:52 Physical Exam Vitals: Vital Signs Temp Pulse Resp BP Pulse Ox 02/04/23 04:00 76 18 103/61 93 L 02/04/23 00:00 78 18 98/52 93 L 02/03/23 20:00 98.3 F 76 18 109/68 97 02/03/23 15:56 73 18 94/62 100 02/03/23 14:46 82 18 02/03/23 13:14 82 18 103/69 96 02/03/23 09:13 79 18 Intake and Output 02/03/23 02/04/23 02/04/23 22:59 06:59 14:59 Intake Total 240 0 Output Total 250 50 Balance -250 190 0 Intake: Oral 240 0 Output: Urine 250 Emesis 50 Other: Voiding Method Bedside Commode Bedside Commode External Catheter External Catheter # Voids 1 # Bowel Movements 1 General appearance: The patient is alert, oriented, appears in no acute distress. HET: Head is normocephalic and atraumatic. Conjunctiva pink. Sclera anicteric. Neck: Supple without lymphadenopathy. Trachea midline. Heart: S1 S2. Regular rate and rhythm. Lungs: Clear to auscultation. Abdomen: Soft, nontender, nondistended with bowel sounds. No guarding or rigidity. Skin: No rashes. No jaundice. Extremities: Normal skin color and turgor. No pedal edema. Neurological: No focal deficits. Alert and oriented x3. Results CBC & Chem 7: 02/04/23 11:03 02/04/23 11:03 Labs: Abnormal Lab Results - Last 24 Hours (Table) 02/03/23 02/03/23 02/03/23 Range/Units 12:09 15:36 18:02 Sodium 132 L (137-145) mmol/L Chloride 92 L (98-107) mmol/L Carbon Dioxide 35 H (22-30) mmol/L BUN 23 H (7-17) mg/dL Glucose 186 H (74-99) mg/dL POC Glucose (mg/dL) 180 H 206 H (70-110) mg/dL Calcium 7.9 L (8.4-10.2) mg/dL 02/04/23 02/04/23 Range/Units 00:04 05:59 Sodium (137-145) mmol/L Chloride (98-107) mmol/L Carbon Dioxide (22-30) mmol/L BUN (7-17) mg/dL Glucose (74-99) mg/dL POC Glucose (mg/dL) 188 H 199 H (70-110) mg/dL Calcium (8.4-10.2) mg/dL Assessment and Plan (1) Vomiting Narrative/Plan: 67-year-old female with a history of chronic vomiting which have been associated with food presented to the emergency department with increase in symptoms and frequency. Patient presented to the emergency department with weakness, was dehydrated and hypokalemic. States that she is unable to keep liquids or solids down. Last EGD was 10/19/[address] Young with findings of gastritis and large hiatal hernia. Patient has followed up in the office initially was told to eat small frequent meals however symptoms continued and she now believes she has a weight loss of 20 pounds or more. Gen. surgery initially consulted for her symptoms. Patient underwent esophagram today reporting limited study, small hiatal hernia, probable presbyesophagus. Gen. surgery Dr. Slater performed EGD today with findings of retained barium in proximal stomach, small hiatal hernia. Patient was found to have aspirated barium into the left lung. Continue PPI, diet as tolerated, TPN as ordered unclear etiology at this time of vomiting. Current Visit: Yes Status: Acute Code(s): R11.10 - VOMITING, UNSPECIFIED SNOMED Code(s): 325402039 (2) Malnutrition Current Visit: Yes Status: Acute Code(s): E46 - UNSPECIFIED PROTEIN-CALORIE MALNUTRITION SNOMED Code(s): 06587158 (3) Hiatal hernia Current Visit: Yes Status: Acute Code(s): K44.9 - DIAPHRAGMATIC HERNIA WITHOUT OBSTRUCTION OR GANGRENE SNOMED Code(s): 57522799 (4) Gastritis Current Visit: Yes Status: Acute Code(s): K29.70 - GASTRITIS, UNSPECIFIED, WITHOUT BLEEDING SNOMED Code(s): 6100540 (5) JOYCELYN (acute kidney injury) Current Visit: Yes Status: Acute Code(s): N17.9 - ACUTE KIDNEY FAILURE, UNSPECIFIED SNOMED Code(s): 53621584 (6) Dehydration Current Visit: Yes Status: Acute Code(s): E86.0 - DEHYDRATION SNOMED Code(s): 50445812 (7) Weakness Current Visit: Yes Status: Acute Code(s): R53.1 - WEAKNESS SNOMED Code(s): 05181673 (8) Ascites Narrative/Plan: Unclear etiology of ascites. Patient with no prior history of ascites, paracentesis, or known liver disease. Need to obtain fluid studies if patient requires paracentesis again. Follow-up with gastroenterology. Current Visit: Yes Status: Acute Code(s): R18.8 - OTHER ASCITES SNOMED Code(s): 899104467 Plan: 1. Continue symptomatic and supportive care 2. Patient underwent upper endoscopy with general surgery 3. Esophagram reviewed 4. Continue PPI twice a day 5. Keep nothing by mouth 6. Await recommendations from general surgery 7. Recommend fluid studies and fluid cytology if gets paracentesis again 8. Further recommendations forthcoming from gastroenterology Thank you for this consultation, we will continue to follow. Dr. Belgica Young I agree with the dictator's note, documented as a scribe by Trudy Ba.
--- NOTE | 2023-02-04 11:03 | FL ---
ESOPHOGRAM. HISTORY: Dysphagia Esophagram was attempted however the patient could not tolerate the barium and started throwing up al most immediately. Contrast is seen within the esophagus extending into the stomach. There appears to be a small hiatal hernia. There appear to be changes of presbyesophagus. IMPRESSION: 1. Limited study. 2. Probable presbyesophagus. 3. Small hiatal hernia.
[2023-02-04] MEDS: 1: MVI, ADULT NO.4 WITH VIT K 10 ML, TRACE (CONC-1ML/DOSE) 1 ML, SODIUM CHLORIDE 4MEQ/ML IV SCH ×8 (11:21)
[2023-02-04 11:24] LABS: Basophils % (A) 1 %; Eosinophils # (A) 0.1 k/uL (0-0.7); Eosinophils % (A) 2 %; HGB 11.3 gm/dL (11.4-16.0); Lymphocytes # (A) 1.1 k/uL (1.0-4.8); Lymphocytes % (A) 14 %; MCH 30.2 pg (25.0-35.0); MCHC 31.4 g/dL (31.0-37.0); Mean Platelet Volume 8.1; Monocytes # (A) 0.6 k/uL (0-1.0); Monocytes % (A) 8 %; Neutrophils # (A) 5.6 k/uL (1.3-7.7); Neutrophils % (A) 73 %; Platelet Count 206 k/uL (150-450); RBC 3.75 m/uL (3.80-5.40); RDW 12.7 % (11.5-15.5); WBC 7.7 k/uL (3.8-10.6)
[2023-02-04] MEDS ORDERED: LIDOCAINE 2% INJ 20 MG/ML (2 ML VIAL) ONE (11:43)
[2023-02-04] MEDS ORDERED: PHENYLEPHRINE-0.9% NACL SYG 1,000 MCG/10 ML SYRINGE ONE (11:43)
[2023-02-04] MEDS ORDERED: PROPOFOL 10 MG/ML 20 ML VIAL IV ONE (11:43)
[2023-02-04] MEDS ORDERED: SODIUM CHLORIDE 0.9% 500 ML 500 ML IV ONE ×2 (11:49)
[2023-02-04 11:53] LABS: African American GFR (CKD) 85 (>60 ml/min/1.73 sqM); Anion Gap 6 mmol/L; Blood Urea Nitrogen 25 mg/dL (7-17); Calcium 7.4 mg/dL (8.4-10.2); Carbon Dioxide 28 mmol/L (22-30); Chloride 96 mmol/L (98-107); Glucose 230 mg/dL (74-99); Magnesium 1.6 mg/dL (1.6-2.3); Non-African American GFR(CKD) 74 (>60 ml/min/1.73 sqM); Phosphorus 2.6 mg/dL (2.5-4.5); Sodium 130 mmol/L (137-145)
[2023-02-04] MEDS ORDERED: FUROSEMIDE 10 MG/ML 2 ML VIAL IV ONE (12:00)
--- NOTE | 2023-02-04 12:01 | P.PN ---
Subjective Patient is seen in follow-up for acute kidney injury. Renal function at baseline. TPN started 02/01/2023. Oral intake remains poor. Gets nauseous. Nonoliguric. Vital signs are stable. General: No acute distress. HEENT: Head exam is unremarkable. LUNGS: No audible rhonchi or wheezes. HEART: Rate and Rhythm are regular. ABDOMEN: Nontender. EXTREMITITES: No edema. Objective - Vital Signs Vital signs: Vital Signs Temp 98.1 F 02/04/23 11:47 Pulse 77 02/04/23 11:47 Resp 18 02/04/23 11:47 BP 112/69 02/04/23 11:47 Pulse Ox 98 02/04/23 11:47 FiO2 Intake & Output 02/03/23 02/04/23 02/04/23 18:59 06:59 18:59 Intake Total 355 1279.5 0 Output Total 475 50 Balance -120 1229.5 0 Intake: Intake, IV Titration 1039.5 Amount Sodium Chloride 4Meq/ml 1039.5 Vial 32 meq Potassium Chloride 30 meq Sodium Phosphate 15 mmol Magnesium Sulfate gm 0.75 gm Calcium Gluconate 1 gm In Amino Acids 5 %/ Dextrose 20 % 1,000 ml @ 70 mls/hr IV .BY DURATION [facility] Rx#:[id number] Oral 355 240 0 Output: Urine 475 Emesis 50 Other: Voiding Method Bedside Commode Bedside Commode Bedside Commode External Catheter External Catheter External Catheter # Voids 1 # Bowel Movements 1 - Labs CBC & Chem 7: 02/04/23 11:03 02/04/23 11:03 Labs: Abnormal Lab Results - Last 24 Hours (Table) 02/03/23 02/03/23 02/03/23 Range/Units 12:09 15:36 18:02 RBC (3.80-5.40) m/uL Hgb (11.4-16.0) gm/dL Sodium 132 L (137-145) mmol/L Chloride 92 L (98-107) mmol/L Carbon Dioxide 35 H (22-30) mmol/L BUN 23 H (7-17) mg/dL Glucose 186 H (74-99) mg/dL POC Glucose (mg/dL) 180 H 206 H (70-110) mg/dL Calcium 7.9 L (8.4-10.2) mg/dL 02/04/23 02/04/23 02/04/23 Range/Units 00:04 05:59 11:03 RBC (3.80-5.40) m/uL Hgb (11.4-16.0) gm/dL Sodium 130 L (137-145) mmol/L Chloride 96 L (98-107) mmol/L Carbon Dioxide (22-30) mmol/L BUN 25 H (7-17) mg/dL Glucose 230 H (74-99) mg/dL POC Glucose (mg/dL) 188 H 199 H (70-110) mg/dL Calcium 7.4 L (8.4-10.2) mg/dL 02/04/23 Range/Units 11:03 RBC 3.75 L (3.80-5.40) m/uL Hgb 11.3 L (11.4-16.0) gm/dL Sodium (137-145) mmol/L Chloride (98-107) mmol/L Carbon Dioxide (22-30) mmol/L BUN (7-17) mg/dL Glucose (74-99) mg/dL POC Glucose (mg/dL) (70-110) mg/dL Calcium (8.4-10.2) mg/dL Assessment and Plan Plan: Assessment: 1. Acute kidney injury mostly prerenal poor and taken diuresis. Improved. Creatinine 1.65 on admission - 0.83 today. Patient received IV contrast on 01/31/2023 as well. No hydronephrosis noted on CT. UA fairly benign. 2. Ascites status post paracentesis with 4 L drained 02/01/2023. 3. Hypokalemia secondary to poor intake, diuretics, intracellular shifting from alkalosis. Replaced. 4. Metabolic alkalosis from vomiting and diuresis. Improved. 5. Intractable nausea and vomiting. Surgery following. Started on TPN 02/01/2023. 6. Diabetes mellitus. 7. Chronic lower extremity edema with venous stasis. 8. Hyponatremia from poor solute intake. Slightly hypervolemic. 9. Hypomagnesemia from poor intake. Plan: TPN per surgery. Replace magnesium. Check serum and urine osmolality and urine sodium level. Lasix 20 mg IV once today.
--- NOTE | 2023-02-04 12:14 | P.OP ---
Date of Procedure: 02/04/23 Preoperative Diagnosis: Dysphagia Postoperative Diagnosis: Retained barium and proximal stomach Small hiatal hernia Procedure(s) Performed: EGD Anesthesia: MAC Surgeon: Armando Slater Pathology: none sent Condition: stable Disposition: PACU Description of Procedure: The patient's placed on the operative table in the endoscopy table in the supine position. She received IV sedation. She was then placed lateral position. The gastroscope placed oropharynx passed in the esophagus and into the stomach. The proximal stomach appeared to contain barium. The scope was advanced distally in the distal stomach there is no barium seen. At this point the patient had issues with her bite-block. She was biting on the scope. The scope was withdrawn. The pylorus was not cannulated. Scope was brought back. And once again there was a transition between a proximal stomach contained barium. The scope was retroflexed and there was evidence of a small moderate hiatal hernia. The GE junction was at 38 cm per the distal esophagus appeared normal. The proximal esophagus appeared normal. Scope withdrawn for patient.
[2023-02-04] MEDS ORDERED: DEXAMETHASONE SOD PHOSPHATE 10 MG/ML 1 ML VIAL IVP ONE (12:25)
[2023-02-04] MEDS ORDERED: ALBUTEROL NEBULIZED 2.5 MG/3 ML INHALATION ONE (12:29)
--- NOTE | 2023-02-04 12:48 | XR ---
EXAMINATION TYPE: XR chest 1V DATE OF EXAM: 02/04/2023 COMPARISON: NONE HISTORY: Cough TECHNIQUE: Single frontal view of the chest is obtained. FINDINGS: There is extensive barium throughout the left hemithorax and within the airway suggestive of a large scale aspiration. Residual contrast is seen within the distal esophagus and within the sto mach. Stomach mucosa appears somewhat irregular. There is bilateral infiltrate and small left effusion with surgical clips overlying left upper quadra nt. Nonspecific calcification left upper quadrant. Right-sided PICC line seen overlying the right atr ium. IMPRESSION: 1. There is barium seen throughout the airway and diffusely throughout the left lung compatible with widespread aspiration. Bilateral lower lobe infiltrate and small effusion. 2. The esophagus appears dilated and there is a small pouch of the stomach which appears markedly irr egular. The distal gastric abnormality is suspected includes neoplastic process or obstruction. Repor t called to patient's nurse at 12:40 PM 02/04/2023..
[2023-02-04 13:10] LABS: Glucose,Whole Blood 230 mg/dL (70-110)
--- NOTE | 2023-02-04 13:32 | P.CNPUL ---
History of Present Illness Consult date: 02/04/23 Requesting physician: Venancio Lucas Reason for consult: dyspnea, cough, hypoxemia, pneumonia, abnormal CXR/CT Chief complaint: Barium aspiration. History of present illness: Pulmonary consult dated 02/04/2023. 67-year-old female who was seen initially in the emergency department, on January 30, with nausea, vomiting, and diarrhea. Today, the patient underwent a barium swallow this morning, followed by the EGD. Apparently during the EGD, she aspirated. Her chest x-ray after the procedure shows barium throughout the left lung. She is overall in phase I recovery. We were asked to see her. She's currently on 4 L of oxygen. She's getting saline at KVO. She's not having any respiratory distress. In my opinion, she can go back to the general floor that she came from. Now that we know about her, should there be any deterioration, we'll be able to respond quickly. The patient will have a chest x-ray done tomorrow. In addition, we looked at the chest x-ray today. Also, we'll make sure she gets some breathing treatments. Lab data today includes a white count 7.7, hemoglobin 11.3, hematocrit 36, and a normal platelet count. Sodium 130, potassium 4.0, chloride 96, CO2 28, anion gap 6, BUN 25, creatinine 0.83. Review of Systems REVIEW OF SYSTEMS: CONSTITUTIONAL: [Negative.] NEUROLOGIC: [ Negative.] HEENT: [ Negative.] CARDIAC: [Negative.] PULMONARY: Mild shortness of breath. GI: Mild abdominal pain. : [Negative.] RHEUMATOLOGIC: [ Negative.] IMMUNOLOGIC: [ Negative.] ENDOCRINE: [Negative. ] DERMATOLOGIC: [Negative.] Past Medical History Past Medical History: Asthma, Cancer, Diabetes Mellitus, Hypertension, Neurologic Disorder Additional Past Medical History / Comment(s): MIGRAINES. RLS. HX LT BREAST CANCER History of Any Multi-Drug Resistant Organisms: None Reported Past Surgical History: Appendectomy, Breast Surgery, Orthopedic Surgery Additional Past Surgical History / Comment(s): LT MASTECTOMY. BILAT Carpal tunnel. COLONOSCOPY. thoracentesis Past Anesthesia/Blood Transfusion Reactions: Motion Sickness, Postoperative Nausea & Vomiting (PONV) Past Psychological History: No Psychological Hx Reported Smoking Status: Never smoker Past Alcohol Use History: None Reported Past Drug Use History: None Reported - Past Family History Father Family Medical History: Cancer Additional Family Medical History / Comment(s): COLON Sister(s) Family Medical History: Cancer Additional Family Medical History / Comment(s): THYROID Medications and Allergies Home Medications Medication Instructions Recorded Confirmed Type Furosemide [Lasix] 40 mg PO BID 06/23/18 01/30/23 History Metoprolol Tartrate [Lopressor] 12.5 mg PO DAILY@1500 06/23/18 01/30/23 History Metoprolol Tartrate [Lopressor] 25 mg PO BID 06/23/18 01/30/23 History Losartan Potassium [Cozaar] 25 mg PO DAILY 06/30/20 01/30/23 History Pramipexole [Mirapex] 1 mg PO BID 06/30/20 01/30/23 History Rosuvastatin Calcium 5 mg PO DAILY 06/30/20 01/30/23 History Spironolactone 25 mg PO DAILY 06/30/20 01/30/23 History metFORMIN HCL [Glucophage] 500 mg PO TID 06/30/20 01/30/23 History Pantoprazole [Protonix] 40 mg PO BID 01/30/23 01/30/23 History Allergies Allergy/AdvReac Type Severity Reaction Status Date / Time lisinopril Allergy Cough Verified 01/30/23 17:52 metolazone Allergy Unknown Verified 01/30/23 17:52 prednisone Allergy FEELS LIKE Verified 01/30/23 17:52 BODY IS ON FIRE cephalexin [From Keflex] AdvReac DIZZY Verified 01/30/23 17:52 Physical Exam Osteopathic Statement: *. No significant issues noted on an osteopathic structural exam other than those noted in the History and Physical/Consult. Vitals: Vital Signs Temp Pulse Pulse Resp BP Pulse Ox 02/04/23 13:15 89 16 100/71 92 L 02/04/23 13:00 90 16 107/68 92 L 02/04/23 12:45 88 16 103/65 92 L 02/04/23 12:30 89 16 94/54 94 L 02/04/23 12:14 97.5 F L 81 18 107/62 90 L 02/04/23 11:47 98.1 F 77 18 112/69 98 02/04/23 09:45 100 06/12/23 08:00 98.2 F 81 20 112/66 98 02/04/23 04:00 76 18 103/61 93 L 02/04/23 00:00 78 18 98/52 93 L 02/03/23 20:00 98.3 F 76 18 109/68 97 02/03/23 15:56 73 18 94/62 100 02/03/23 14:46 82 18 Intake and Output 02/03/23 02/04/23 02/04/23 22:59 06:59 14:59 Intake Total 1039.5 240 100 Output Total 250 50 Balance 789.5 190 100 Intake: IV 100 Intake, IV Titration 1039.5 Amount Sodium Chloride 4Meq/ml 1039.5 Vial 32 meq Potassium Chloride 30 meq Sodium Phosphate 15 mmol Magnesium Sulfate gm 0.75 gm Calcium Gluconate 1 gm In Amino Acids 5 %/ Dextrose 20 % 1,000 ml @ 70 mls/hr IV .BY DURATION [facility] Rx#:[id number] Oral 240 0 Output: Urine 250 Emesis 50 Other: Voiding Method Bedside Commode Bedside Commode Bedside Commode External Catheter External Catheter External Catheter # Voids 1 # Bowel Movements 1 Weight 81.647 kg No acute distress, oriented 3. Currently on 4 L. No conversational dyspnea or use of accessory muscles. HEENT examination is grossly unremarkable. Neck supple. Full range of motion. No adenopathy thyromegaly or neck vein distention. Cardiovascular examination reveals regular rhythm rate. S1-S2 normal. No S3 or S4. No discernible murmur noted. Heart rate 90 bpm. Lungs reveal mild scattered rhonchi. No wheezes or crackles. Breath sounds are equal bilaterally. 4 L saturation is 92%. Abdomen soft, with mild tenderness on palpation. Extremities are wrapped. They are chronically edematous. Skin is without rash or lesion. Neurologic examination is brief but nonfocal. Results - Laboratory Findings CBC and BMP: 02/04/23 11:03 02/04/23 11:03 PT/INR, D-dimer PT 11.4 sec (9.0-12.0) 01/30/23 15:21 INR 1.1 (<1.2) 01/30/23 15:21 Abnormal lab findings: Abnormal Labs 01/30/23 01/30/23 01/30/23 14:55 15:21 15:21 RBC Hgb Sodium 134 L Potassium 2.7 L* Chloride 69 L* Carbon Dioxide 49 H* BUN 43 H Creatinine 1.65 H Glucose 128 H POC Glucose (mg/dL) Calcium Ionized Calcium Xu Phosphorus Total Bilirubin 1.9 H AST 44 H Troponin I 0.062 H* Total Protein Albumin Urine Protein Trace H Urine Ketones 2+ H Urine Bilirubin 1+ H 01/31/23 01/31/23 01/31/23 07:31 07:31 18:07 RBC 3.72 L Hgb Sodium 132 L Potassium 2.5 L* 2.7 L* Chloride 75 L Carbon Dioxide 47 H* BUN 36 H Creatinine 1.29 H Glucose POC Glucose (mg/dL) Calcium 8.1 L Ionized Calcium Xu Phosphorus Total Bilirubin 1.6 H AST Troponin I Total Protein 5.3 L Albumin 3.1 L Urine Protein Urine Ketones Urine Bilirubin 01/31/23 02/01/23 02/01/23 20:51 08:22 08:22 RBC Hgb Sodium 135 L Potassium Chloride 85 L Carbon Dioxide 42 H* BUN 28 H Creatinine Glucose POC Glucose (mg/dL) 113 H Calcium 7.9 L Ionized Calcium Xu Phosphorus 2.4 L Total Bilirubin AST Troponin I Total Protein Albumin Urine Protein Urine Ketones Urine Bilirubin 02/01/23 02/02/23 02/02/23 20:15 06:21 08:55 RBC Hgb Sodium 134 L Potassium Chloride 91 L Carbon Dioxide 42 H* BUN 23 H Creatinine Glucose 169 H POC Glucose (mg/dL) 221 H 198 H Calcium 7.3 L Ionized Calcium Xu 4.2 L Phosphorus Total Bilirubin AST Troponin I Total Protein 4.4 L Albumin 2.4 L Urine Protein Urine Ketones Urine Bilirubin 02/02/23 02/02/23 02/02/23 11:40 17:55 23:55 RBC Hgb Sodium Potassium Chloride Carbon Dioxide BUN Creatinine Glucose POC Glucose (mg/dL) 163 H 208 H 195 H Calcium Ionized Calcium Xu Phosphorus Total Bilirubin AST Troponin I Total Protein Albumin Urine Protein Urine Ketones Urine Bilirubin 02/03/23 02/03/23 02/03/23 06:30 12:09 15:36 RBC Hgb Sodium 132 L Potassium Chloride 92 L Carbon Dioxide 35 H BUN 23 H Creatinine Glucose 186 H POC Glucose (mg/dL) 186 H 180 H Calcium 7.9 L Ionized Calcium Xu Phosphorus Total Bilirubin AST Troponin I Total Protein Albumin Urine Protein Urine Ketones Urine Bilirubin 02/03/23 02/04/23 02/04/23 18:02 00:04 05:59 RBC Hgb Sodium Potassium Chloride Carbon Dioxide BUN Creatinine Glucose POC Glucose (mg/dL) 206 H 188 H 199 H Calcium Ionized Calcium Xu Phosphorus Total Bilirubin AST Troponin I Total Protein Albumin Urine Protein Urine Ketones Urine Bilirubin 02/04/23 02/04/23 02/04/23 11:03 11:03 13:07 RBC 3.75 L Hgb 11.3 L Sodium 130 L Potassium Chloride 96 L Carbon Dioxide BUN 25 H Creatinine Glucose 230 H POC Glucose (mg/dL) 230 H Calcium 7.4 L Ionized Calcium Xu Phosphorus Total Bilirubin AST Troponin I Total Protein Albumin Urine Protein Urine Ketones Urine Bilirubin - Diagnostic Findings Chest x-ray: image reviewed Assessment and Plan Assessment: S/P EGD (02/04/2023), with barium aspiration primarily into the left lung. S/P barium swallow, 02/04/2023. History of hypertension. History of left breast cancer, S/P left mastectomy. History of diabetes mellitus. History of asthma. Lifelong nonsmoker. History of migraine cephalgia. History of restless leg syndrome. Plan: Plan dated 02/04/2023. She is seen in phase I recovery. She appears relatively stable. Her chest x- ray clearly shows barium aspiration into the left lung. She's on 4 L of nasal cannula. She has no history of any lung issues. She does not use oxygen at home. She's getting saline at KVO. Chest x-ray done in the morning. We had some breathing treatments to her regimen. Will watch her very closely. Should there be any deterioration, we could certainly move her into the intensive care unit at that time. Time with Patient: Greater than 30
--- NOTE | 2023-02-04 13:36 | XR ---
EXAMINATION TYPE: XR abdomen 1V DATE OF EXAM: 02/04/2023 COMPARISON: NONE HISTORY: Vomiting TECHNIQUE: One view abdominal series FINDINGS: The osseous structures are intact. There is diffuse contrast seen overlying the left lung compatible with widespread aspiration. Contrast outlines the trachea and left bronchus. There are surgical robbins es involving the left axilla and there is left lower lobe infiltrate and small effusion. Dilated esophagus is seen and there is contrast within the gastric fundus with poor demonstration of the gastric body and antrum. There is some contrast seen extending into a few small bowel loops. IMPRESSION: 1. There remains a stable appearance to the stomach which is unchanged from prior exam. There is no v isualization of gastric body or antrum. Diffuse aspiration in the left lung is noted. 2. There is contrast seen within a few small bowel loops in the upper abdomen. Suspect there is a dis beck gastric or proximal duodenal at least partial obstruction or mass. Correlate clinically.
[2023-02-04] MEDS: MAGNESIUM SULFATE-D5W PMX 1 GM in DEXTROSE/WATER 1 100ML.BAG IVPB SCH ×2 (14:32→15:42)
--- NOTE | 2023-02-04 14:46 | P.PN ---
Progress Note - Text Progress Note Date: 02/04/23 Review the radiology imaging with Dr. Mcnally. The patient has an abnormal antrum or pylorus first part of the small bowel. The patient's obstructive symptoms may be due to gastric outlet obstruction. The patient had reflux of barium to the level of the clavicles. The patient will remain nothing by mouth. She will most likely require exploratory laparotomy when she is medically stable.
[2023-02-04] MEDS: IPRATROPIUM-ALBUTEROL 3 ML NEB INHALATION SCH ×2 (14:58→22:05)
[2023-02-04] MEDS: METOPROLOL TARTRATE 12.5 MG TAB PO SCH (15:42)
[2023-02-04] MEDS: PIPERACILLIN-TAZOBACTAM 3.375 GM in SODIUM CHLORIDE 0.9% 100 ML IVPB SCH (15:42)
--- NOTE | 2023-02-04 19:14 | P.PN ---
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 Reports she has not been able to keep any of her medications down. Denies abdominal pain.Patient previously had symptoms of gastroesophageal reflux disease, nausea and vomiting over 3 months prior to visit with GI. She completed an EGD with Dr. Stephanie Young,GI 10/19/22, reporting a large hiatal hernia, mild antral gastritis, biopsies obtained, Protonix 40 twice a day initiated and patient was referred to Dr. Cesar, general surgery, if no improvement in symptoms in 6-8 weeks. Duodenum, biopsy Pathology reported benign small bowel mucosa with intact villous architecture, negative for histopathologic abnormality, H pylori not identified, negative for fungal organisms. Denies chest pain, palpitations or shortness of breath. Afebrile, normal WBC. Hemoglobin 11.8, platelets 296, INR 1.1. Sodium 132, potassium 2.5, chloride 75, bicarb 47, BUN 36 creatinine 1.29. Lactic acid 1.9, phospho wing 3.2, magnesium 2.2, total bili 1.6, troponin 0.062, lipase 75. 02/01/2023 significant improvement of potassium, up to 3.5 , magnesium 2.2.continues to have emesis post consumption of clear liquids-denies nausea. Denies abdominal pain. Abdomen soft despite ct report of large ascites. CT of chest, abdomen and pelvis completed yesterday reporting small hiatal hernia, large volume ascites, anteverted uterus with right adnexal cystic lesion measuring 2.9 cm, colonic diverticulosis, mildly distended fluid-filled esophagus, could be related to esophagitis versus reflux, cholelithiasis, small bilateral pleural effusions with associated atelectasis, questionable septal nodular contour to the liver. PICC line pending ordered for TPN. 02/04/2023 Status post paracentesis with 4 L removed-unfortunately fluid studies were not collected .Esophagram pending as warranted by CT's report of distended fluid-filled esophagus. GI services return today,consult in place, recommendations pending. Labs pending. Maintaining O2 sats of 98% on 2 L nasal cannula. Afebrile. Objective - Vital Signs Vital signs: Vital Signs Temp 97.5 F L 02/04/23 12:14 Pulse 75 02/04/23 13:30 Resp 16 02/04/23 13:30 BP 111/74 02/04/23 13:30 Pulse Ox 94 L 02/04/23 13:30 FiO2 Intake & Output 02/03/23 02/04/23 02/04/23 18:59 06:59 18:59 Intake Total 355 1279.5 300 Output Total 475 50 Balance -120 1229.5 300 Weight 81.647 kg Intake: IV 300 Intake, IV Titration 1039.5 Amount Sodium Chloride 4Meq/ml 1039.5 Vial 32 meq Potassium Chloride 30 meq Sodium Phosphate 15 mmol Magnesium Sulfate gm 0.75 gm Calcium Gluconate 1 gm In Amino Acids 5 %/ Dextrose 20 % 1,000 ml @ 70 mls/hr IV .BY DURATION [facility] Rx#:[id number] Oral 355 240 0 Output: Urine 475 Emesis 50 Other: Voiding Method Bedside Commode Bedside Commode Bedside Commode External Catheter External Catheter External Catheter # Voids 1 # Bowel Movements 1 - Exam PHYSICAL EXAM: VITAL SIGNS: [As above] GENERAL: Sitting up in bed, no acute distress. HEENT: Normocephalic, Conjunctivae normal. eyes normal. Sclera anicteric. NECK: Supple, No JVD. CARDIOVASCULAR: S1, S2 regular.No murmur RESPIRATION: Unlabored,CTA with bilateral bases diminished. ABDOMEN: Soft, nondistended, nontender . No guarding, no rigidity. LEGS: bilateral lower extremities wrapped PSYCHIATRY: Alert and oriented X3, mood and affect normal. NERVOUS SYSTEM: Cranial N 2-12 grossly normal. No focal deficits. Strength and sensation grossly intact. Skin: Warm and dry, no rash - Labs CBC & Chem 7: 02/04/23 11:03 02/04/23 11:03 Labs: Abnormal Lab Results - Last 24 Hours (Table) 02/03/23 02/03/23 02/04/23 Range/Units 15:36 18:02 00:04 RBC (3.80-5.40) m/uL Hgb (11.4-16.0) gm/dL Sodium 132 L (137-145) mmol/L Chloride 92 L (98-107) mmol/L Carbon Dioxide 35 H (22-30) mmol/L BUN 23 H (7-17) mg/dL Glucose 186 H (74-99) mg/dL POC Glucose (mg/dL) 206 H 188 H (70-110) mg/dL Calcium 7.9 L (8.4-10.2) mg/dL 02/04/23 02/04/23 02/04/23 Range/Units 05:59 11:03 11:03 RBC 3.75 L (3.80-5.40) m/uL Hgb 11.3 L (11.4-16.0) gm/dL Sodium 130 L (137-145) mmol/L Chloride 96 L (98-107) mmol/L Carbon Dioxide (22-30) mmol/L BUN 25 H (7-17) mg/dL Glucose 230 H (74-99) mg/dL POC Glucose (mg/dL) 199 H (70-110) mg/dL Calcium 7.4 L (8.4-10.2) mg/dL 02/04/23 Range/Units 13:07 RBC (3.80-5.40) m/uL Hgb (11.4-16.0) gm/dL Sodium (137-145) mmol/L Chloride (98-107) mmol/L Carbon Dioxide (22-30) mmol/L BUN (7-17) mg/dL Glucose (74-99) mg/dL POC Glucose (mg/dL) 230 H (70-110) mg/dL Calcium (8.4-10.2) mg/dL Assessment and Plan Assessment: Intractable nausea and vomiting secondary to large hiatal hernia per recent EGD on 10/18. CT suggestive of large volume ascites, small hiatal hernia, distended f luid-filled esophagus, questionable subtle nodular contour of the liver Dehydration secondary to the above Acute renal failure secondary to the above Hypokalemia, severe, improving History of antral gastritis CT reporting right adnexal cystic lesion 2.9 cm, further follow-up outpatient. Nonpressure chronic ulcers of bilateral lower extremities, wound care team following Chronic intermittent asthma, stable PONV Diabetes mellitus Hypertension History of left breast cancer status post left mastectomy Protein calorie malnutrition, most recent albumin 2.4, on TPN via PICC line. Ascites, status post paracentesis, no fluid studies obtained, in a patient with no prior history of ascites or liver disease. Plan: Continue on current medication regime ,monitoring and symptomatic treatment. Labs pending. Maintain IV fluid fluid hydration, PPI. GI consult in place, recommendations pending. Close monitoring of renal function, electrolytes,LFTs with repeat labs ordered for a.m. The impression and plan of care has been dictated as directed. : I performed a history and examination of this patient, discussed the same with the dictator. I agree with the dictator's note ,documented as a scribe. Any additional findings or plans will be noted.
[2023-02-05 00:54] LABS: Glucose,Whole Blood 367 mg/dL (70-110)
[2023-02-05] MEDS: PIPERACILLIN-TAZOBACTAM 3.375 GM in SODIUM CHLORIDE 0.9% 100 ML IVPB SCH ×3 (01:51→16:44)
[2023-02-05] MEDS: 1: MVI, ADULT NO.4 WITH VIT K 10 ML, TRACE (CONC-1ML/DOSE) 1 ML, POTASSIUM CHLORIDE 20 M IV SCH ×10 (02:48→03:38)
[2023-02-05 06:01] LABS: Glucose,Whole Blood 387 mg/dL (70-110)
[2023-02-05 08:32] LABS: ALT 18 U/L (4-34); AST 40 U/L (14-36); African American GFR (CKD) 84 (>60 ml/min/1.73 sqM); Albumin 2.5 g/dL (3.5-5.0); Alkaline Phosphatase 27 U/L (38-126); Anion Gap 5 mmol/L; Blood Urea Nitrogen 33 mg/dL (7-17); Calcium 7.7 mg/dL (8.4-10.2); Carbon Dioxide 28 mmol/L (22-30); Chloride 96 mmol/L (98-107); Glucose 362 mg/dL (74-99); Non-African American GFR(CKD) 73 (>60 ml/min/1.73 sqM); Phosphorus 2.7 mg/dL (2.5-4.5); Sodium 129 mmol/L (137-145); Total Bilirubin 1.2 mg/dL (0.2-1.3)
[2023-02-05 08:37] LABS: Basophils % (A) 0 %; Eosinophils % (A) 0 %; HCT 39.7 % (34.0-46.0); HGB 12.6 gm/dL (11.4-16.0); Lymphocytes # (A) 0.5 k/uL (1.0-4.8); Lymphocytes % (A) 11 %; MCH 30.6 pg (25.0-35.0); MCHC 31.7 g/dL (31.0-37.0); MCV 96.7 fL (80.0-100.0); Mean Platelet Volume 8.2; Monocytes # (A) 0.5 k/uL (0-1.0); Monocytes % (A) 11 %; Neutrophils # (A) 3.5 k/uL (1.3-7.7); Neutrophils % (A) 73 %; Platelet Count 159 k/uL (150-450); RBC 4.11 m/uL (3.80-5.40); RDW 12.7 % (11.5-15.5); WBC 4.8 k/uL (3.8-10.6)
[2023-02-05 08:46] LABS: Potassium 5.7 mmol/L (3.5-5.1)
--- NOTE | 2023-02-05 08:54 | XR ---
EXAMINATION TYPE: XR chest 1V portable DATE OF EXAM: 02/05/2023 7:15 AM COMPARISON: Chest radiographs from 02/04/2023 TECHNIQUE: XR chest 1V portable Portable AP radiograph of the chest. CLINICAL INDICATION:Female, 67 years old with history of Aspiration; FINDINGS: There is unchanged extensive barium throughout the left hemithorax and within the airway suggestive o f a large scale aspiration. Residual contrast is seen within the stomach. Small left effusion with surgical clips overlying left upper quadrant. Right-sided PICC line seen ove rlying the right atrium. IMPRESSION: Similar appearance of extensive barium throughout the left hemithorax suggestive of large scale aspiration.
[2023-02-05] MEDS: IPRATROPIUM-ALBUTEROL 3 ML NEB INHALATION SCH ×4 (09:30→20:40)
[2023-02-05] MEDS ORDERED: FUROSEMIDE 10 MG/ML 4 ML VIAL IV STA (09:40)
--- NOTE | 2023-02-05 09:44 | P.PN ---
Subjective Patient is seen in follow-up for acute kidney injury. Renal function at baseline. TPN started 02/01/2023. Oral intake remains poor. Nonoliguric. Potassium level high but is hemolyzed. Blood sugar is also elevated. Vital signs are stable. General: No acute distress. HEENT: Head exam is unremarkable. LUNGS: No audible rhonchi or wheezes. HEART: Rate and Rhythm are regular. ABDOMEN: Nontender. EXTREMITITES: 1+ edema. Lower extremities wrapped. Objective - Vital Signs Vital signs: Vital Signs Temp 98.1 F 02/05/23 04:00 Pulse 96 02/05/23 09:30 Resp 20 02/05/23 04:00 BP 103/69 02/05/23 04:00 Pulse Ox 93 L 02/05/23 09:30 FiO2 Intake & Output 02/04/23 02/05/23 02/05/23 18:59 06:59 18:59 Intake Total 300 600 Output Total 1200 800 Balance -900 -200 Weight 81.647 kg Intake: IV 300 Intake, IV Titration 100 Amount Piperacillin-Tazobactam 3 100 .375 gm In Sodium Chloride 0.9% 100 ml @ 25 mls/hr IVPB Q8HR [facility] Rx# :[id number] Oral 0 0 TPN/PPN 500 Potassium Chloride 20 meq 500 Magnesium Sulfate gm 0.5 gm In Amino Acid 5%-D20w +Lytes*E* 1,000 ml @ 70 mls/hr IV .BY DURATION [facility] Rx#:[id number] Output: Urine 1200 800 Other: Voiding Method Bedside Commode Bedside Commode External Catheter External Catheter # Voids 1 # Bowel Movements 1 - Labs CBC & Chem 7: 02/05/23 08:16 02/05/23 07:40 Labs: Abnormal Lab Results - Last 24 Hours (Table) 02/04/23 02/04/23 02/04/23 Range/Units 11:03 11:03 13:07 RBC 3.75 L (3.80-5.40) m/uL Hgb 11.3 L (11.4-16.0) gm/dL Sodium 130 L (137-145) mmol/L Potassium (3.5-5.1) mmol/L Chloride 96 L (98-107) mmol/L BUN 25 H (7-17) mg/dL Glucose 230 H (74-99) mg/dL POC Glucose (mg/dL) 230 H (70-110) mg/dL Calcium 7.4 L (8.4-10.2) mg/dL AST (14-36) U/L Alkaline Phosphatase (38-126) U/L Total Protein (6.3-8.2) g/dL Albumin (3.5-5.0) g/dL 02/05/23 02/05/23 02/05/23 Range/Units 00:51 05:56 07:40 RBC (3.80-5.40) m/uL Hgb (11.4-16.0) gm/dL Sodium 129 L (137-145) mmol/L Potassium 5.7 H (3.5-5.1) mmol/L Chloride 96 L (98-107) mmol/L BUN 33 H (7-17) mg/dL Glucose 362 H (74-99) mg/dL POC Glucose (mg/dL) 367 H 387 H (70-110) mg/dL Calcium 7.7 L (8.4-10.2) mg/dL AST 40 H (14-36) U/L Alkaline Phosphatase 27 L (38-126) U/L Total Protein 5.0 L (6.3-8.2) g/dL Albumin 2.5 L (3.5-5.0) g/dL Assessment and Plan Plan: Assessment: 1. Acute kidney injury mostly prerenal poor and taken diuresis. Improved. Creatinine 1.65 on admission - 0.84 today. Patient received IV contrast on 01/31/2023 as well. No hydronephrosis noted on CT. UA fairly benign. 2. Ascites status post paracentesis with 4 L drained 02/01/2023. 3. Hypokalemia secondary to poor intake, diuretics, intracellular shifting from alkalosis. Replaced. Potassium high at this morning but is hemolyzed sample. 4. Metabolic alkalosis from vomiting and diuresis. Improved. 5. Intractable nausea and vomiting. Surgery following. Started on TPN 02/01/2023. 6. Diabetes mellitus. 7. Chronic lower extremity edema with venous stasis. 8. Hyponatremia from poor solute intake. Hypervolemic. Also component of hypertonicity from hyperglycemia. Urine sodium 92 and urine osmolality 413. 9. Hypomagnesemia from poor intake. Replaced. Improved. Plan: TPN per surgery. Lasix 40 mg IV once today. Repeat potassium level pending. Blood sugar control. Repeat labs in the morning.
[2023-02-05] MEDS: PANTOPRAZOLE 40 MG/10 ML VIAL IVP SCH ×2 (09:47→20:29)
[2023-02-05] MEDS ORDERED: HEPARIN SODIUM 1,000 UN/ML (10ML VL) IV PRN (09:53)
[2023-02-05] MEDS ORDERED: HEPARIN SODIUM 1,000 UN/ML (10ML VL) IV ONE (10:00)
[2023-02-05] MEDS ORDERED: DILTIAZEM DRIP BOLUS FROM BAG 1 MG SOLN IV ONE (10:00)
[2023-02-05] MEDS: DILTIAZEM 125 MG in SODIUM CHLORIDE 0.9% 100 ML IV SCH (10:20)
--- NOTE | 2023-02-05 11:06 | P.PN ---
Subjective Progress Note Date: 02/05/23 Principal diagnosis: Barium aspiration. Pulmonary consult dated 02/04/2023. 67-year-old female who was seen initially in the emergency department, on January 30, with nausea, vomiting, and diarrhea. Today, the patient underwent a barium swallow this morning, followed by the EGD. Apparently during the EGD, she aspirated. Her chest x-ray after the procedure shows barium throughout the left lung. She is overall in phase I recovery. We were asked to see her. She's currently on 4 L of oxygen. She's getting saline at KVO. She's not having any respiratory distress. In my opinion, she can go back to the general floor that she came from. Now that we know about her, should there be any deterioration, we'll be able to respond quickly. The patient will have a chest x-ray done tomorrow. In addition, we looked at the chest x-ray today. Also, we'll make sure she gets some breathing treatments. Lab data today includes a white count 7.7, hemoglobin 11.3, hematocrit 36, and a normal platelet count. Sodium 130, potassium 4.0, chloride 96, CO2 28, anion gap 6, BUN 25, creatinine 0.83. Progress note dated 02/05/2023. The patient is seen today in room 356. Seen yesterday in consultation, in phase I recovery. She is currently on 4 L of oxygen, getting TPN at 70 mL now her, and saline at 10 mL an hour. The patient had a barium swallow in the morning yesterday, followed by an EGD. During the EGD, the patient aspirated barium into the left lung. Current laboratory data includes a white count 4.8, he will been 12.6, hematocrit 39.7, and a platelet count of 159,000. Sodium 129, potassium 5.7, chlorides 96, CO2 28, BUN 33, and creatinine 0.84. Albumin is 2.5. Chest x-ray shows barium throughout the left hemithorax. Objective - Vital Signs Vital signs: Vital Signs Temp 97.9 F 02/05/23 09:35 Pulse 116 H 02/05/23 09:40 Resp 18 02/05/23 09:35 BP 93/58 02/05/23 10:28 Pulse Ox 95 02/05/23 09:35 FiO2 Intake & Output 02/04/23 02/05/23 02/05/23 18:59 06:59 18:59 Intake Total 300 600 Output Total 1200 800 Balance -900 -200 Weight 81.647 kg Intake: IV 300 Intake, IV Titration 100 Amount Piperacillin-Tazobactam 3 100 .375 gm In Sodium Chloride 0.9% 100 ml @ 25 mls/hr IVPB Q8HR CHUCK Rx# :[id number] Oral 0 0 TPN/PPN 500 Potassium Chloride 20 meq 500 Magnesium Sulfate gm 0.5 gm In Amino Acid 5%-D20w +Lytes*E* 1,000 ml @ 70 mls/hr IV .BY DURATION CHUCK Rx#:[id number] Output: Urine 1200 800 Other: Voiding Method Bedside Commode Bedside Commode Bedside Commode External Catheter External Catheter External Catheter # Voids 1 # Bowel Movements 1 - Exam No acute distress, oriented 3. Currently on 4 L. No conversational dyspnea or use of accessory muscles. HEENT examination is grossly unremarkable. Neck supple. Full range of motion. No adenopathy thyromegaly or neck vein distention. Cardiovascular examination reveals regular rhythm rate. S1-S2 normal. No S3 or S4. No discernible murmur noted. Heart rate 91 bpm. Lungs reveal mild scattered rhonchi. No wheezes or crackles. Breath sounds are equal bilaterally. 4 L saturation is 95 %. Abdomen soft, with mild tenderness on palpation. Extremities are wrapped. They are chronically edematous. Skin is without rash or lesion. Neurologic examination is brief but nonfocal. - Labs CBC & Chem 7: 02/05/23 08:16 02/05/23 08:16 Labs: Abnormal Lab Results - Last 24 Hours (Table) 02/04/23 02/04/23 02/04/23 Range/Units 11:03 11:03 13:07 RBC 3.75 L (3.80-5.40) m/uL Hgb 11.3 L (11.4-16.0) gm/dL Lymphocytes # (1.0-4.8) k/uL Sodium 130 L (137-145) mmol/L Potassium (3.5-5.1) mmol/L Chloride 96 L (98-107) mmol/L BUN 25 H (7-17) mg/dL Glucose 230 H (74-99) mg/dL POC Glucose (mg/dL) 230 H (70-110) mg/dL Calcium 7.4 L (8.4-10.2) mg/dL AST (14-36) U/L Alkaline Phosphatase (38-126) U/L Total Protein (6.3-8.2) g/dL Albumin (3.5-5.0) g/dL 02/05/23 02/05/23 02/05/23 Range/Units 00:51 05:56 07:40 RBC (3.80-5.40) m/uL Hgb (11.4-16.0) gm/dL Lymphocytes # (1.0-4.8) k/uL Sodium 129 L (137-145) mmol/L Potassium 5.7 H (3.5-5.1) mmol/L Chloride 96 L (98-107) mmol/L BUN 33 H (7-17) mg/dL Glucose 362 H (74-99) mg/dL POC Glucose (mg/dL) 367 H 387 H (70-110) mg/dL Calcium 7.7 L (8.4-10.2) mg/dL AST 40 H (14-36) U/L Alkaline Phosphatase 27 L (38-126) U/L Total Protein 5.0 L (6.3-8.2) g/dL Albumin 2.5 L (3.5-5.0) g/dL 02/05/23 Range/Units 08:16 RBC (3.80-5.40) m/uL Hgb (11.4-16.0) gm/dL Lymphocytes # 0.5 L (1.0-4.8) k/uL Sodium (137-145) mmol/L Potassium (3.5-5.1) mmol/L Chloride (98-107) mmol/L BUN (7-17) mg/dL Glucose (74-99) mg/dL POC Glucose (mg/dL) (70-110) mg/dL Calcium (8.4-10.2) mg/dL AST (14-36) U/L Alkaline Phosphatase (38-126) U/L Total Protein (6.3-8.2) g/dL Albumin (3.5-5.0) g/dL Assessment and Plan Assessment: S/P EGD (02/04/2023), with barium aspiration primarily into the left lung. S/P barium swallow, 02/04/2023. History of hypertension. History of left breast cancer, S/P left mastectomy. History of diabetes mellitus. History of asthma. Lifelong nonsmoker. History of migraine cephalgia. History of restless leg syndrome. Plan: Plan dated 02/04/2023. She is seen in phase I recovery. She appears relatively stable. Her chest x- ray clearly shows barium aspiration into the left lung. She's on 4 L of nasal cannula. She has no history of any lung issues. She does not use oxygen at home. She's getting saline at KVO. Chest x-ray done in the morning. We had some breathing treatments to her regimen. Will watch her very closely. Should there be any deterioration, we could certainly move her into the intensive care unit at that time. Plan dated 02/05/2023. The patient was initially seen in room 356. She appeared relatively stable and was on oxygen at 4 L. She is also getting a keep vein open saline IV, and TPN. Labs, x-rays, and medications are reviewed. When we saw her, she was stable. Subsequently, she developed atrial fibrillation with RVR. She was placed on a Cardizem drip and IV heparin. A rapid response team was called to the patient's room, and I spoke to the charge nurse, and we decided to transfer the patient to the intensive care unit. Additional recommendations and suggestions are forthcoming. There was no significant decline in her respiratory status, rather this was a primary cardiovascular issue. Time with Patient: Less than 30
[2023-02-05] MEDS: ATORVASTATIN 10 MG TAB PO SCH (11:14)
[2023-02-05] MEDS: PRAMIPEXOLE 1 MG TAB PO SCH ×2 (11:14→20:29)
[2023-02-05] MEDS: METOPROLOL TARTRATE 25 MG TAB PO SCH ×2 (11:14→20:29)
[2023-02-05] MEDS: SPIRONOLACTONE 25 MG TAB PO SCH (11:14)
--- NOTE | 2023-02-05 11:27 | P.PN ---
Subjective Progress Note Date: 02/05/23 Principal diagnosis: Vomiting, dysphagia This is a 67-year-old female with multiple comorbidities including GERD, asthma, diabetes mellitus, hypertension, neurologic disorder, breast cancer status post left mastectomy, chronic kidney disease, nonpressure chronic ulcers and chronic vomiting who presented to the emergency department last week for intractable vomiting. Patient states she has been vomiting for the last 1-1-1/2 years. She does state that it has gotten much worse over the last 2-3 weeks which she states that she is unable to keep liquids or food down. States that once she swallows and it goes down it will come right back up. She believes that she has lost around 20 pounds in the last few weeks. She has become more weak and dehydrated. She denies any nausea associated with vomiting. Denies any abdominal pain. No hematemesis. She recently saw Dr. Young for outpatient upper endoscopy 10/19/2022 which revealed a large hiatal hernia and mild antral gastritis. Patient then saw nurse practitioner from Dr. Young's office last week, however patient does not recall what they told her. According to last endoscopy note from September patient was supposed to follow-up and if no improvement in symptoms of be referred to general surgeon for possible surgery for hiatal hernia. Patient denies seeing any surgeon in the outpatient setting. Gen. surgery was consulted during this admission. Her diet was advanced however she states she is not able to keep solids down. She had a PICC line placed and TPN was started. This morning she underwent esophagram which is currently pending. During this admission she also had an CT of the chest abdomen pelvis with contrast that reported large-volume ascites, heterogeneous appearance of to anteverted uterus with right adnexal cystic lesion measuring up to 2.9 cm. Further evaluation with pelvic ultrasound recommended. Colonic diverticulosis without evidence for acute diverticulosis. Mildly distended fluid-filled esophagus. Could be related to esophagitis versus reflux. This can be further evaluated with esophagram as clinically indicated. Cholelithiasis. Small bilateral pleural effusion with associated atelectasis. Questionable subtle nodular contour of liver. Correlate with liver function tests for cirrhosis. Patient did undergo a paracentesis with 4 L removed. She denies any previous history of liver disease are previous paracentesis. No history of alcohol abuse in the past. No fluid studies were collected during the paracentesis. On admission patient was noted to have a total bilirubin of 1.6 with normal AST ALT and alkaline phosphatase, total bilirubin last repeated on 02/02/2023 0.9 AST 31 ALT 18 alkaline phosphatase 56. These labs currently pending. 02/05/2023 Patient seen and examined today as a follow-up. She is sitting up in the bedside chair. She is currently nothing by mouth. Yesterday morning she underwent upper GI, then in the afternoon general surgery performed EGD and during procedure aspirated with a chest x-ray showing barium throughout the left lung. She is currently stating her breathing is good. She is denying any abdominal pain, nausea or vomiting at this time. Reviewing general surgery's note recent imaging was reviewed between general surgeon and radiology with concerns for abnormal antrum or pylorus in the first part of the small bowel questionable gastric outlet syndrome versus obstruction/mass. Patient is tentatively scheduled to undergo exploratory laparotomy tomorrow if stable. Patient is currently afebrile. She was started on IV Zosyn yesterday. Today patient had EKG showing atrial fibrillation and has been started on a heparin drip from cardiology this morning. Objective - Vital Signs Vital signs: Vital Signs Temp 98.1 F 02/05/23 04:00 Pulse 116 H 02/05/23 09:40 Resp 20 02/05/23 04:00 BP 103/69 02/05/23 04:00 Pulse Ox 93 L 02/05/23 09:30 FiO2 Intake & Output 02/04/23 02/05/23 02/05/23 18:59 06:59 18:59 Intake Total 300 600 Output Total 1200 800 Balance -900 -200 Weight 81.647 kg Intake: IV 300 Intake, IV Titration 100 Amount Piperacillin-Tazobactam 3 100 .375 gm In Sodium Chloride 0.9% 100 ml @ 25 mls/hr IVPB Q8HR [facility] Rx# :[id number] Oral 0 0 TPN/PPN 500 Potassium Chloride 20 meq 500 Magnesium Sulfate gm 0.5 gm In Amino Acid 5%-D20w +Lytes*E* 1,000 ml @ 70 mls/hr IV .BY DURATION CHUCK Rx#:[id number] Output: Urine 1200 800 Other: Voiding Method Bedside Commode Bedside Commode External Catheter External Catheter # Voids 1 # Bowel Movements 1 - Exam General appearance: The patient is alert, oriented, appears in no acute distress. Nasal cannula in place with 2 L of oxygen. HET: Head is normocephalic and atraumatic. Conjunctiva pink. Sclera anicteric. Neck: Supple without lymphadenopathy. Abdomen: Soft, nontender, nondistended with bowel sounds. No guarding or rigidity. Extremities: Bilateral lower extremity edema, with dressings in place. Skin: No rashes, no jaundice Neurological: No focal deficits. Alert and oriented. - Labs CBC & Chem 7: 02/05/23 08:16 02/05/23 08:16 Labs: Abnormal Lab Results - Last 24 Hours (Table) 02/04/23 02/04/23 02/04/23 Range/Units 11:03 11:03 13:07 RBC 3.75 L (3.80-5.40) m/uL Hgb 11.3 L (11.4-16.0) gm/dL Lymphocytes # (1.0-4.8) k/uL Sodium 130 L (137-145) mmol/L Potassium (3.5-5.1) mmol/L Chloride 96 L (98-107) mmol/L BUN 25 H (7-17) mg/dL Glucose 230 H (74-99) mg/dL POC Glucose (mg/dL) 230 H (70-110) mg/dL Calcium 7.4 L (8.4-10.2) mg/dL AST (14-36) U/L Alkaline Phosphatase (38-126) U/L Total Protein (6.3-8.2) g/dL Albumin (3.5-5.0) g/dL 02/05/23 02/05/23 02/05/23 Range/Units 00:51 05:56 07:40 RBC (3.80-5.40) m/uL Hgb (11.4-16.0) gm/dL Lymphocytes # (1.0-4.8) k/uL Sodium 129 L (137-145) mmol/L Potassium 5.7 H (3.5-5.1) mmol/L Chloride 96 L (98-107) mmol/L BUN 33 H (7-17) mg/dL Glucose 362 H (74-99) mg/dL POC Glucose (mg/dL) 367 H 387 H (70-110) mg/dL Calcium 7.7 L (8.4-10.2) mg/dL AST 40 H (14-36) U/L Alkaline Phosphatase 27 L (38-126) U/L Total Protein 5.0 L (6.3-8.2) g/dL Albumin 2.5 L (3.5-5.0) g/dL 02/05/23 Range/Units 08:16 RBC (3.80-5.40) m/uL Hgb (11.4-16.0) gm/dL Lymphocytes # 0.5 L (1.0-4.8) k/uL Sodium (137-145) mmol/L Potassium (3.5-5.1) mmol/L Chloride (98-107) mmol/L BUN (7-17) mg/dL Glucose (74-99) mg/dL POC Glucose (mg/dL) (70-110) mg/dL Calcium (8.4-10.2) mg/dL AST (14-36) U/L Alkaline Phosphatase (38-126) U/L Total Protein (6.3-8.2) g/dL Albumin (3.5-5.0) g/dL Assessment and Plan (1) Vomiting Narrative/Plan: 67-year-old female with a history of chronic vomiting which have been associated with food presented to the emergency department with increase in symptoms and frequency. Patient presented to the emergency department with weakness, was dehydrated and hypokalemic. States that she is unable to keep liquids or solids down. Last EGD was 10/19/[address] Young with findings of gastritis and large hiatal hernia. Patient has followed up in the office initially was told to eat small frequent meals however symptoms continued and she now believes she has a weight loss of 20 pounds or more. Gen. surgery initially consulted for her symptoms. Patient underwent esophagram today reporting limited study, small hiatal hernia, probable presbyesophagus. Gen. surgery Dr. Slater performed EGD today with findings of retained barium in proximal stomach, small hiatal hernia. Patient was found to have aspirated barium into the left lung. Continue PPI, diet as tolerated, TPN as ordered unclear etiology at this time of vomiting. According to general surgery note further imaging reviewed including abdominal x-ray with radiology and concerns for abnormal antrum or pylorus and the first part of the small bowel with questionable obstruction/mass possible gastric outlet syndrome with planned exploratory laparotomy when patient is stable. Patient tentatively scheduled for tomorrow. Current Visit: Yes Status: Acute Code(s): R11.10 - VOMITING, UNSPECIFIED SNOMED Code(s): 431585794 (2) Malnutrition Narrative/Plan: currently on TPN Current Visit: Yes Status: Acute Code(s): E46 - UNSPECIFIED PROTEIN-CALORIE MALNUTRITION SNOMED Code(s): 32484038 (3) Hiatal hernia Current Visit: Yes Status: Acute Code(s): K44.9 - DIAPHRAGMATIC HERNIA WITHOUT OBSTRUCTION OR GANGRENE SNOMED Code(s): 26530454 (4) Gastritis Current Visit: Yes Status: Acute Code(s): K29.70 - GASTRITIS, UNSPECIFIED, WITHOUT BLEEDING SNOMED Code(s): 1811565 (5) JOYCELYN (acute kidney injury) Current Visit: Yes Status: Acute Code(s): N17.9 - ACUTE KIDNEY FAILURE, UNSPECIFIED SNOMED Code(s): 69364017 (6) Dehydration Current Visit: Yes Status: Acute Code(s): E86.0 - DEHYDRATION SNOMED Code(s): 03574163 (7) Weakness Current Visit: Yes Status: Acute Code(s): R53.1 - WEAKNESS SNOMED Code(s): 31749274 (8) Ascites Narrative/Plan: Unclear etiology of ascites. Patient with no prior history of ascites, paracentesis, or known liver disease. Need to obtain fluid studies if patient requires paracentesis again. Follow-up with gastroenterology. Current Visit: Yes Status: Acute Code(s): R18.8 - OTHER ASCITES SNOMED Code(s): 223059890 (9) Atrial fibrillation with RVR Current Visit: Yes Status: Acute Code(s): I48.91 - UNSPECIFIED ATRIAL FIBRILLATION SNOMED Code(s): 900476390052664 (10) Aspiration into respiratory tract Current Visit: Yes Status: Acute Code(s): T17.908A - UNSP FB IN RESP TRACT, PART UNSP CAUSING OTH INJURY, INIT SNOMED Code(s): 386788702 Plan: 1. Continue symptomatic and supportive care 2. Patient underwent upper endoscopy with general surgery 01/04/2023 3. Esophagram reviewed 4. Continue PPI twice a day 5. Keep nothing by mouth 6. Recommend fluid studies and fluid cytology if gets paracentesis again 7. Continue with recommendations from pulmonology and cardiology Thank you for this consultation, we will continue to follow. Dr. Belgica Young I agree with the dictator's note, documented as a scribe by Trudy Ba.
--- NOTE | 2023-02-05 11:28 | P.CRDCN ---
History of Present Illness Consult date: 02/05/23 History of present illness: HISTORY OF PRESENT ILLNESS: This is a 67-year-old female with a past medical history significant for diabetes, hypertension, hyperlipidemia, breast cancer, and SVT. Patient follows in the office with Dr. Ralph. We have been asked to see the patient in consultation for A. fib with RVR. Patient examined at the bedside. The patient presented to the hospital for a chief complaint of vomiting. The patient has been unable to keep food or liquids down. She recently underwent endoscopy in September [address] Young which revealed a large hiatal hernia and mild antral gastritis. The patient underwent a barium swallow yesterday however she was unable to to tolerate the barium swallow and started throwing up immedi ately. Final impression reveals limited study, probable presbyesophagus, and small hiatal hernia. She then underwent EGD yesterday with Dr. Slater revealing small hiatal hernia and retained barium and proximal stomach. The patient symptoms may be due to gastric outlet obstruction per general surgery. She is scheduled for exploratory laparotomy with possible partial gastrectomy tomorrow with Dr. Slater. The patient is currently nothing by mouth and receiving TPN. The patient went into A. fib with RVR this morning with a heart rate in the [id number]. Patient is having issues with her blood pressure this morning and is hypotensive at times [place] [id number]. * EKG reveals A. fib with RVR * Chest xray similar appearance of extensive barium throughout the left hemothorax suggestive of large-scale aspiration * Laboratory data: WBC 4.8. Hemoglobin 12.6. Platelet count 159. Sodium 129. Potassium 4.7. BUN 33. Creatinine 0.84. * Current home cardiac medications include metoprolol tartrate 25 mg twice a day and hope 0.5 mg at 3 PM, Lasix 40 mg twice a day, losartan 25 mg daily, Crestor 5 mg daily, and spironolactone 25 mg daily * Most recent echocardiogram obtained in the office in February 2020 revealed ejection fraction 55%, mild tricuspid regurgitation, mild mitral regurgitation * Patient underwent Lexiscan stress test in the office in February 2020 which was negative for ischemia. Ejection fraction was estimated at 69%. REVIEW OF SYSTEMS: At the time of my exam: CONSTITUTIONAL: Denies fever or chills. HEENT: Denies blurred vision, vision changes, or eye pain. Denies hemoptysis CARDIOVASCULAR: Denies chest pain. Denies orthopnea. Denies PND. Denies palpitations RESPIRATORY: Denies shortness of breath. GASTROINTESTINAL: Denies abdominal pain. Denies nausea or vomiting. HEMATOLOGIC: Denies bleeding disorders. GENITOURINARY: Denies any blood in urine. SKIN: Denies pruitis. Denies rash. PHYSICAL EXAM: VITAL SIGNS: Reviewed. GENERAL: Well-developed in no acute distress. HEENT: Head is normocephalic. Pupils are equal, round. Sclerae anicteric. Mucous membranes of the mouth are moist. Neck supple. No JVD or thyromegaly LUNGS: Respirations even and unlabored. Lungs with rhonchi throughout HEART: Tachycardic. Irregular rate and rhythm. S1 and S2 heard. ABDOMEN: Soft. Nondistended. Nontender. EXTREMITIES: Normal range of motion. No clubbing or cyanosis. Peripheral pulses intact. 2+ lower extremity edema NEUROLOGIC: Awake and alert. Oriented x 3. ASSESSMENT: Intractable vomiting Possible gastric outlet obstruction Status post EGD with aspiration of barium into left lung Hiatal hernia Ascites, status post paracentesis New onset atrial fibrillation with RVR Hypotension Acute kidney injury, resolved Hyponatremia History of hypertension History of hyperlipidemia History of breast cancer History of SVT Chronic lower extremity edema PLAN: Obtain 2-D echo to assess cardiac stricture and function Patient is currently nothing by mouth and unable to take oral medications Begin IV Cardizem bolus and infusion Begin IV fluid at 100cc/hr secondary to hypotension. Continue to monitor blood pressure. Continue telemetry monitoring Check TSH Discontinue Lovenox. Begin IV Heparin Further recommendations pending patient course Nurse practitioner note has been reviewed by physician. Signing provider agrees with the documented findings, assessment, and plan of care. Past Medical History Past Medical History: Asthma, Cancer, Diabetes Mellitus, Hypertension, Neurologi c Disorder Additional Past Medical History / Comment(s): MIGRAINES. RLS. HX LT BREAST CANCER History of Any Multi-Drug Resistant Organisms: None Reported Past Surgical History: Appendectomy, Breast Surgery, Orthopedic Surgery Additional Past Surgical History / Comment(s): LT MASTECTOMY. BILAT Carpal tunnel. COLONOSCOPY. thoracentesis Past Anesthesia/Blood Transfusion Reactions: Motion Sickness, Postoperative Nausea & Vomiting (PONV) Past Psychological History: No Psychological Hx Reported Smoking Status: Never smoker Past Alcohol Use History: None Reported Past Drug Use History: None Reported - Past Family History Father Family Medical History: Cancer Additional Family Medical History / Comment(s): COLON Sister(s) Family Medical History: Cancer Additional Family Medical History / Comment(s): THYROID Medications and Allergies Home Medications Medication Instructions Recorded Confirmed Type Furosemide [Lasix] 40 mg PO BID 06/23/18 01/30/23 History Metoprolol Tartrate [Lopressor] 12.5 mg PO DAILY@1500 06/23/18 01/30/23 History Metoprolol Tartrate [Lopressor] 25 mg PO BID 06/23/18 01/30/23 History Losartan Potassium [Cozaar] 25 mg PO DAILY 06/30/20 01/30/23 History Pramipexole [Mirapex] 1 mg PO BID 06/30/20 01/30/23 History Rosuvastatin Calcium 5 mg PO DAILY 06/30/20 01/30/23 History Spironolactone 25 mg PO DAILY 06/30/20 01/30/23 History metFORMIN HCL [Glucophage] 500 mg PO TID 06/30/20 01/30/23 History Pantoprazole [Protonix] 40 mg PO BID 01/30/23 01/30/23 History Allergies Allergy/AdvReac Type Severity Reaction Status Date / Time lisinopril Allergy Cough Verified 01/30/23 17:52 metolazone Allergy Unknown Verified 01/30/23 17:52 prednisone Allergy FEELS LIKE Verified 01/30/23 17:52 BODY IS ON FIRE cephalexin [From Keflex] AdvReac DIZZY Verified 01/30/23 17:52 Physical Exam Vitals: Vital Signs Temp Pulse Pulse Pulse Resp BP Pulse Ox 02/05/23 10:28 93/58 02/05/23 10:25 73/43 02/05/23 09:40 116 H 100/68 02/05/23 09:35 97.9 F 141 H 18 77/48 95 02/05/23 09:30 96 93 L 02/05/23 04:00 98.1 F 20 103/69 95 02/05/23 01:31 75 20 02/04/23 23:55 98.0 F 20 90/56 94 L 02/04/23 22:15 78 02/04/23 22:06 76 02/04/23 20:00 98.0 F 75 20 129/99 96 02/04/23 16:00 98.6 F 20 139/80 95 02/04/23 15:14 92 02/04/23 15:04 92 L 02/04/23 14:59 94 02/04/23 13:30 75 16 111/74 94 L 02/04/23 13:15 89 16 100/71 92 L 02/04/23 13:00 90 16 107/68 92 L 02/04/23 12:45 88 16 103/65 92 L 02/04/23 12:30 89 16 94/54 94 L 02/04/23 12:14 97.5 F L 81 18 107/62 90 L 02/04/23 11:47 98.1 F 77 18 112/69 98 Intake and Output 02/04/23 02/05/23 02/05/23 22:59 06:59 14:59 Intake Total 0 600 Output Total 1200 800 Balance -1200 -200 Intake: Intake, IV Titration 100 Amount Piperacillin-Tazobactam 3 100 .375 gm In Sodium Chloride 0.9% 100 ml @ 25 mls/hr IVPB Q8HR [facility] Rx# :[id number] Oral 0 TPN/PPN 500 Potassium Chloride 20 meq 500 Magnesium Sulfate gm 0.5 gm In Amino Acid 5%-D20w +Lytes*E* 1,000 ml @ 70 mls/hr IV .BY DURATION [facility] Rx#:[id number] Output: Urine 1200 800 Other: Voiding Method Bedside Commode Bedside Commode Bedside Commode External Catheter External Catheter External Catheter Results 02/05/23 08:16 02/05/23 08:16 Cardiac Enzymes 02/05/23 Range/Units 07:40 AST 40 H (14-36) U/L CBC 02/04/23 02/05/23 Range/Units 11:03 08:16 WBC 7.7 4.8 (3.8-10.6) k/uL RBC 3.75 L 4.11 (3.80-5.40) m/uL Hgb 11.3 L 12.6 (11.4-16.0) gm/dL Hct 36.0 39.7 (34.0-46.0) % Plt Count 206 159 (150-450) k/uL Comprehensive Metabolic Panel 06/08/1702/05/23 02/05/23 Range/Units 11:03 07:40 08:16 Sodium 130 L 129 L (137-145) mmol/L Potassium 4.0 5.7 H 4.7 (3.5-5.1) mmol/L Chloride 96 L 96 L (98-107) mmol/L Carbon Dioxide 28 28 (22-30) mmol/L BUN 25 H 33 H (7-17) mg/dL Creatinine 0.83 0.84 (0.52-1.04) mg/dL Glucose 230 H 362 H (74-99) mg/dL Calcium 7.4 L 7.7 L (8.4-10.2) mg/dL AST 40 H (14-36) U/L ALT 18 (4-34) U/L Alkaline Phosphatase 27 L (38-126) U/L Total Protein 5.0 L (6.3-8.2) g/dL Albumin 2.5 L (3.5-5.0) g/dL Current Medications Generic Name Dose Route Start Last Admin Trade Name Freq PRN Reason Stop Dose Admin Albuterol/Ipratropium 3 ml 02/04/23 16:00 02/05/23 09:30 Ipratropium-Albuterol 3 Ml Neb INHALATION 3 ml RT-QID CHUCK Administration Albuterol/Ipratropium 3 ml 02/04/23 13:23 Ipratropium-Albuterol 3 Ml Neb INHALATION RT-Q2H PRN Shortness Of Breath Or Wheezing Atorvastatin Calcium 5 mg 01/31/23 09:00 02/04/23 08:54 Atorvastatin 10 Mg Tab PO 5 mg DAILY CHUCK Administration Heparin Sodium (Porcine) 0 unit 02/05/23 09:53 Heparin Sodium 1,000 Un/Ml (10ml Vl) IV PER PROTOCOL PRN Low PTT Protocol Fat Emulsion Intravenous 250 250 mls @ 21 mls/hr 02/03/23 18:00 02/03/23 18:05 ml/ IV Solution IV 21 mls/hr SuWe@1800 CHUCK Administration Piperacillin Sod/Tazobactam 100 mls @ 25 mls/hr 02/04/23 16:00 02/05/23 09:46 Sod 3.375 gm/ Sodium Chloride IVPB 25 mls/hr Q8HR [facility] Administration Protocol Parenteral Vitamin Supplement 1,022 mls @ 70 mls/hr 02/05/23 02:00 02/05/23 02:48 10 ml/ Zinc/Copper/Manganese/ IV 70 mls/hr Selenium 1 ml/ Potassium .BY DURATION [facility] Administration Chloride 20 meq/ Magnesium Sulfate 0.5 gm/ Amino Ac/ Electrol/Dextrose/Calcium Potassium Chloride 20 meq/ 1,011 mls @ 70 mls/hr 02/05/23 02:00 02/05/23 03:38 Magnesium Sulfate 0.5 gm/ IV Not Given Amino Ac/Electrol/Dextrose/ .BY DURATION [facility] Calcium Diltiazem HCl 125 mg/ Sodium 125 mls @ 7.5 mls/hr 02/05/23 10:30 02/05/23 10 :20 Chloride IV 7.5 mg/hr .[id number] [facility] 7.5 mls/hr Administration 7.5 MG/HR Heparin Sodium/Sodium Chloride 250 mls @ 9.798 mls/hr 02/05/23 10:15 25,000 unit/ Sodium Chloride IV .Q24H [facility] Protocol 12 UNITS/KG/HR Sodium Chloride 1,000 mls @ 100 mls/hr 02/05/23 10:00 Saline 0.9% IV .Q10H [facility] Metoprolol Tartrate 25 mg 01/31/23 09:00 02/04/23 21:49 Metoprolol Tartrate 25 Mg Tab PO Not Given BID [facility] Metoprolol Tartrate 12.5 mg 01/31/23 15:00 02/04/23 15:42 Metoprolol Tartrate 12.5 Mg Tab PO 12.5 mg DAILY@1500 [facility] Administration Miscellaneous Information 1 each 01/31/23 09:09 Potassium Replacement Protocol 1 Each Misc MISCELLANE DAILY PRN Per Protocol Protocol Morphine Sulfate 4 mg 01/30/23 17:33 Morphine Sulfate 4 Mg/Ml Syringe IV Q4HR PRN Severe Pain (Scale 7 to 10) Naloxone HCl 0.2 mg 01/30/23 17:33 Naloxone 0.4 Mg/Ml 1 Ml Vial IV Q2M PRN Opioid Reversal Ondansetron HCl 4 mg 01/30/23 17:33 02/03/23 12:30 Ondansetron 4 Mg/2 Ml Vial IVP 4 mg Q8HR PRN Administration Nausea And Vomiting Pantoprazole Sodium 40 mg 01/31/23 21:00 02/05/23 09:47 Pantoprazole 40 Mg/10 Ml Vial IVP 40 mg BID [facility]UCK Administration Pramipexole Dihydrochloride 1 mg 01/31/23 09:00 02/04/23 21:49 Pramipexole 1 Mg Tab PO Not Given BID [facility] Spironolactone 25 mg 01/31/23 09:00 02/04/23 08:54 Spironolactone 25 Mg Tab PO 25 mg DAILY [facility] Administration Intake and Output 02/04/23 02/05/23 02/05/23 22:59 06:59 14:59 Intake Total 0 600 Output Total 1200 800 Balance -1200 -200 Intake: Intake, IV Titration 100 Amount Piperacillin-Tazobactam 3 100 .375 gm In Sodium Chloride 0.9% 100 ml @ 25 mls/hr IVPB Q8HR [facility] Rx# :[id number] Oral 0 TPN/PPN 500 Potassium Chloride 20 meq 500 Magnesium Sulfate gm 0.5 gm In Amino Acid 5%-D20w +Lytes*E* 1,000 ml @ 70 mls/hr IV .BY DURATION [facility] Rx#:[id number] Output: Urine 1200 800 Other: Voiding Method Bedside Commode Bedside Commode Bedside Commode External Catheter External Catheter External Catheter 02/05/23 08:16 02/05/23 08:16
[2023-02-05 11:46] LABS: Glucose,Whole Blood 321 mg/dL (70-110)
[2023-02-05] MEDS: HEPARIN SOD,PORK IN 0.45% NACL 25,000 UNIT in 0.45% NACL 1 250ML.BAG IV SCH (11:51)
[2023-02-05] MEDS ORDERED: FUROSEMIDE 10 MG/ML 4 ML VIAL ONE (12:05)
[2023-02-05] MEDS: SODIUM CHLORIDE 0.9% 1,000 ML IV SCH ×2 (12:08→23:00)
[2023-02-05 12:12] LABS: Partial Thromboplastin Time 27.6 sec (22.0-30.0)
[2023-02-05] MEDS: METOPROLOL TARTRATE 12.5 MG TAB PO SCH (12:54)
--- NOTE | 2023-02-05 13:17 | P.PN ---
Subjective Progress Note Date: 02/05/23 CHIEF COMPLAINT: Vomiting HISTORY OF PRESENT ILLNESS: Patient with possible gastric outlet obstruction. She's currently strict nothing by mouth. She had upper GI completed showing probable presbyesophagus and small hiatal hernia. Patient had EGD yesterday with results showing retained barium in the proximal stomach and evidence of a small hiatal hernia. Abdominal x-ray there remains a stable appearance to the stomach which is unchanged from prior exam. There is no visualization of gastric body or antrum. Diffuse aspiration in the left lung is noted. There is contrast seen within a few small bowel loops in the upper abdomen. Suspect there is a distal gastric proximal duodenal at least partial obstruction or mass. Patient is tachycardic and hypotensive. She is requiring 4 L of oxygen. She was found to have A. fib RVR. She has been seen by cardiology and started on Cardizem drip and IV heparin has been ordered. Patient does have barium aspirate right lung followed by pulmonary service and is on antibiotics. She denies any abdominal pain. Vomiting has stopped. She is receiving IV fluids. She is on TPN for nutrition support. Patient is being transferred to the ICU. Afebrile. WBC 4.8 Hgb 12.6 platelets 159 sodium is 129 potassium 4.7 creatinine 0.84 PHYSICAL EXAM: VITAL SIGNS: Reviewed. GENERAL: Well-developed in no acute distress. ABDOMEN: Soft. Nondistended. Nontender. NEUROLOGIC: Alert and oriented. Cranial nerves II through XII grossly intact. ASSESSMENT: 1. Possible gastric outlet obstruction with intractable vomiting 2. Status post EGD with aspiration of barium into the left lung 3. Small hiatal hernia 4. A. fib with RVR 5. Status post EGD with barium aspiration primary into the left lung PLAN: -Patient is tentatively scheduled for exploratory laparotomy, possible partial gastrectomy tomorrow with Dr. Slater, if medically stable -Agree with transfer to the ICU -Continue antibiotics -continue IV fluids -Keep patient nothing by mouth -Continue TPN for nutrition support -Continue supportive care Physician Barrel Handler note has been reviewed by physician. Signing provider agrees with the documented findings, assessment, and plan of care. Objective - Vital Signs Vital signs: Vital Signs Temp 97.9 F 02/05/23 09:35 Pulse 116 H 02/05/23 09:40 Resp 18 02/05/23 09:35 BP 93/58 02/05/23 10:28 Pulse Ox 95 02/05/23 09:35 FiO2 Intake & Output 02/04/23 02/05/23 02/05/23 18:59 06:59 18:59 Intake Total 300 600 Output Total 1200 800 Balance -900 -200 Weight 81.647 kg Intake: IV 300 Intake, IV Titration 100 Amount Piperacillin-Tazobactam 3 100 .375 gm In Sodium Chloride 0.9% 100 ml @ 25 mls/hr IVPB Q8HR [facility] Rx# :[id number] Oral 0 0 TPN/PPN 500 Potassium Chloride 20 meq 500 Magnesium Sulfate gm 0.5 gm In Amino Acid 5%-D20w +Lytes*E* 1,000 ml @ 70 mls/hr IV .BY DURATION [facility] Rx#:[id number] Output: Urine 1200 800 Other: Voiding Method Bedside Commode Bedside Commode Bedside Commode External Catheter External Catheter External Catheter # Voids 1 # Bowel Movements 1 - Labs CBC & Chem 7: 02/05/23 08:16 02/05/23 08:16 Labs: Abnormal Lab Results - Last 24 Hours (Table) 02/04/23 02/04/23 02/04/23 Range/Units 11:03 11:03 13:07 RBC 3.75 L (3.80-5.40) m/uL Hgb 11.3 L (11.4-16.0) gm/dL Lymphocytes # (1.0-4.8) k/uL Sodium 130 L (137-145) mmol/L Potassium (3.5-5.1) mmol/L Chloride 96 L (98-107) mmol/L BUN 25 H (7-17) mg/dL Glucose 230 H (74-99) mg/dL POC Glucose (mg/dL) 230 H (70-110) mg/dL Calcium 7.4 L (8.4-10.2) mg/dL AST (14-36) U/L Alkaline Phosphatase (38-126) U/L Total Protein (6.3-8.2) g/dL Albumin (3.5-5.0) g/dL 02/05/23 02/05/23 02/05/23 Range/Units 00:51 05:56 07:40 RBC (3.80-5.40) m/uL Hgb (11.4-16.0) gm/dL Lymphocytes # (1.0-4.8) k/uL Sodium 129 L (137-145) mmol/L Potassium 5.7 H (3.5-5.1) mmol/L Chloride 96 L (98-107) mmol/L BUN 33 H (7-17) mg/dL Glucose 362 H (74-99) mg/dL POC Glucose (mg/dL) 367 H 387 H (70-110) mg/dL Calcium 7.7 L (8.4-10.2) mg/dL AST 40 H (14-36) U/L Alkaline Phosphatase 27 L (38-126) U/L Total Protein 5.0 L (6.3-8.2) g/dL Albumin 2.5 L (3.5-5.0) g/dL 02/05/23 Range/Units 08:16 RBC (3.80-5.40) m/uL Hgb (11.4-16.0) gm/dL Lymphocytes # 0.5 L (1.0-4.8) k/uL Sodium (137-145) mmol/L Potassium (3.5-5.1) mmol/L Chloride (98-107) mmol/L BUN (7-17) mg/dL Glucose (74-99) mg/dL POC Glucose (mg/dL) (70-110) mg/dL Calcium (8.4-10.2) mg/dL AST (14-36) U/L Alkaline Phosphatase (38-126) U/L Total Protein (6.3-8.2) g/dL Albumin (3.5-5.0) g/dL
[2023-02-05] MEDS ORDERED: DEXTROSE 50% SYRINGE 50 ML IVP PRN ×2 (16:56)
[2023-02-05] MEDS: 1: MVI, ADULT NO.4 WITH VIT K 10 ML, TRACE (CONC-1ML/DOSE) 1 ML, SODIUM CHLORIDE 4MEQ/ML IV SCH ×6 (17:22)
[2023-02-05 17:29] LABS: Glucose,Whole Blood 311 mg/dL (70-110)
[2023-02-05] MEDS: INSULIN ASPART (NovoLOG) 100 UNIT/ML VIAL SQ SCH (17:36)
--- NOTE | 2023-02-05 20:17 | P.PN ---
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 Reports she has not been able to keep any of her medications down. Denies abdominal pain.Patient previously had symptoms of gastroesophageal reflux disease, nausea and vomiting over 3 months prior to visit with GI. She completed an EGD with Dr. Stephanie Young,GI 10/19/22, reporting a large hiatal hernia, mild antral gastritis, biopsies obtained, Protonix 40 twice a day initiated and patient was referred to Dr. Cesar, general surgery, if no improvement in symptoms in 6-8 weeks. Duodenum, biopsy Pathology reported benign small bowel mucosa with intact villous architecture, negative for histopathologic abnormality, H pylori not identified, negative for fungal organisms. Denies chest pain, palpitations or shortness of breath. Afebrile, normal WBC. Hemoglobin 11.8, platelets 296, INR 1.1. Sodium 132, potassium 2.5, chloride 75, bicarb 47, BUN 36 creatinine 1.29. Lactic acid 1.9, phospho wing 3.2, magnesium 2.2, total bili 1.6, troponin 0.062, lipase 75. 02/01/2023 significant improvement of potassium, up to 3.5 , magnesium 2.2.continues to have emesis post consumption of clear liquids-denies nausea. Denies abdominal pain. Abdomen soft despite ct report of large ascites. CT of chest, abdomen and pelvis completed yesterday reporting small hiatal hernia, large volume ascites, anteverted uterus with right adnexal cystic lesion measuring 2.9 cm, colonic diverticulosis, mildly distended fluid-filled esophagus, could be related to esophagitis versus reflux, cholelithiasis, small bilateral pleural effusions with associated atelectasis, questionable septal nodular contour to the liver. PICC line pending ordered for TPN. 02/04/2023 Status post paracentesis with 4 L removed-unfortunately fluid studies were not collected .Esophagram pending as warranted by CT's report of distended fluid-filled esophagus. GI services return today,consult in place, recommendations pending. Labs pending. Maintaining O2 sats of 98% on 2 L nasal cannula. Afebrile. 02/05/2023 Currently NPO, upper GI completed yesterday am reporting limited study probable presbyesophagus and small hiatal hernia. Yesterday afternoon EGD performed by general surgery reporting retained barium in the proximal stomach and evidence of a small hiatal hernia. Patient apparently aspirated during the procedure . Postprocedure chest x-ray performed reporting barium throughout the airway, diffusely throughout the left lung compatible with widespread aspiration, bilateral lower lobe infiltrate and small effusion,esophagus appears dilated, there is a small patch of the stomach appears markedly irregular. The distal gastric abnormality is suspected includes neoplastic process or obstruction. This morning patient developed atrial fibrillation with RVR, cardiology consulted, Cardizem and heparin drips initiated. Blood pressures soft prior to the initiation of Cardizem drip, maintaining O2 sats in the low 90s on 4 L nasal cannula, short of breath with conversing, Transfer to ICU ordered. Afebrile. Objective - Vital Signs Vital signs: Vital Signs Temp 98.7 F 02/05/23 16:00 Pulse 82 02/05/23 19:00 Resp 24 02/05/23 19:00 BP 87/56 02/05/23 19:00 Pulse Ox 93 L 02/05/23 19:00 FiO2 Intake & Output 02/05/23 02/05/23 02/06/23 06:59 18:59 06:59 Intake Total 600 2296 Output Total 800 835 Balance -200 1461 Intake: IV 210 Potassium Chloride 20 meq 210 Magnesium Sulfate gm 0.5 gm In Amino Acid 5%-D20w +Lytes*E* 1,000 ml @ 70 mls/hr IV .BY DURATION [facility] Rx#:[id number] Intake, IV Titration 100 2086 Amount Mvi, Adult No.4 with Vit 826 K 10 ml Trace (Conc-1Ml/ Dose) 1 ml Potassium Chloride 20 meq Magnesium Sulfate gm 0.5 gm In Amino Acid 5%-D20w+Lytes* E* 1,000 ml @ 70 mls/hr IV .BY DURATION [facility] Rx#: [id number] Mvi, Adult No.4 with Vit 90 K 10 ml Trace (Conc-1Ml/ Dose) 1 ml Sodium Chloride 4Meq/ml Vial 32 meq Potassium Chloride 30 meq Sodium Phosphate 15 mmol Magnesium Sulfate gm 0.75 gm Calcium Gluconate 1 gm In Amino Acids 5 %/Dextrose 20 % 1 ,000 ml @ 70 mls/hr IV . BY DURATION [facility] Rx#: [id number] Piperacillin-Tazobactam 3 100 200 .375 gm In Sodium Chloride 0.9% 100 ml @ 25 mls/hr IVPB Q8HR [facility] Rx# :[id number] Sodium Chloride 0.9% 1, 700 000 ml @ 100 mls/hr IV . Q10H [facility] Rx#:[id number] Sodium Chloride 4Meq/ml 270 Vial 16 meq Potassium Chloride 10 meq Magnesium Sulfate gm 0.5 gm In Amino Acid 5%-D20w+Lytes* E* 1,000 ml @ 90 mls/hr IV .BY DURATION [facility] Rx#: [id number] Oral 0 TPN/PPN 500 Potassium Chloride 20 meq 500 Magnesium Sulfate gm 0.5 gm In Amino Acid 5%-D20w +Lytes*E* 1,000 ml @ 70 mls/hr IV .BY DURATION [facility] Rx#:[id number] Output: Urine 800 835 Other: Voiding Method Bedside Commode Indwelling Catheter External Catheter - Exam PHYSICAL EXAM: VITAL SIGNS: [As above] GENERAL: Alert and oriented 3, Sitting up in chair, mild shortness of breath with conversing HEENT: Normocephalic, Conjunctivae normal. eyes normal. Sclera anicteric. NECK: Supple, No JVD. CARDIOVASCULAR: S1, S2 regular.No murmur RESPIRATION: Respiratory effort mildly increased, rhonchi scattered throughout ABDOMEN: Soft, nondistended, minimal diffuse tenderness . No guarding, no rigidity. Positive bowel sounds. LEGS: Chronic bilateral lower extremity edema, dressings present NERVOUS SYSTEM: Cranial N 2-12 grossly normal. No focal deficits. Strength and sensation grossly intact. Skin: Warm and dry, no rash - Labs CBC & Chem 7: 02/05/23 08:16 02/05/23 08:16 Labs: Abnormal Lab Results - Last 24 Hours (Table) 02/05/23 02/05/23 02/05/23 Range/Units 00:51 05:56 07:40 Lymphocytes # (1.0-4.8) k/uL APTT (22.0-30.0) sec Sodium 129 L (137-145) mmol/L Potassium 5.7 H (3.5-5.1) mmol/L Chloride 96 L (98-107) mmol/L BUN 33 H (7-17) mg/dL Glucose 362 H (74-99) mg/dL POC Glucose (mg/dL) 367 H 387 H (70-110) mg/dL Calcium 7.7 L (8.4-10.2) mg/dL AST 40 H (14-36) U/L Alkaline Phosphatase 27 L (38-126) U/L Total Protein 5.0 L (6.3-8.2) g/dL Albumin 2.5 L (3.5-5.0) g/dL 02/05/23 02/05/23 02/05/23 Range/Units 08:16 11:44 17:27 Lymphocytes # 0.5 L (1.0-4.8) k/uL APTT (22.0-30.0) sec Sodium (137-145) mmol/L Potassium (3.5-5.1) mmol/L Chloride (98-107) mmol/L BUN (7-17) mg/dL Glucose (74-99) mg/dL POC Glucose (mg/dL) 321 H 311 H (70-110) mg/dL Calcium (8.4-10.2) mg/dL AST (14-36) U/L Alkaline Phosphatase (38-126) U/L Total Protein (6.3-8.2) g/dL Albumin (3.5-5.0) g/dL 02/05/23 Range/Units 18:40 Lymphocytes # (1.0-4.8) k/uL APTT 73.5 H (22.0-30.0) sec Sodium (137-145) mmol/L Potassium (3.5-5.1) mmol/L Chloride (98-107) mmol/L BUN (7-17) mg/dL Glucose (74-99) mg/dL POC Glucose (mg/dL) (70-110) mg/dL Calcium (8.4-10.2) mg/dL AST (14-36) U/L Alkaline Phosphatase (38-126) U/L Total Protein (6.3-8.2) g/dL Albumin (3.5-5.0) g/dL Assessment and Plan Assessment: Intractable nausea and vomiting secondary to large hiatal hernia per recent EGD on 10/18. CT suggestive of large volume ascites, small hiatal hernia, distended fluid-filled esophagus, questionable subtle nodular contour of the liver. Chest x-ray post EGD reporting small patch of the stomach appears markedly irregular,distal gastric abnormality is suspected ,includes neoplastic process or obstruction. General surgery planning exploratory laparotomy once patient stabilizes. Atrial fibrillation with RVR Status post esophagogram 02/04/2023 Status post EGD 02/04/2023 with barium aspiration-left lung Dehydration secondary to the above Acute renal failure secondary to the above Hypokalemia, severe, resolved History of antral gastritis CT reporting right adnexal cystic lesion 2.9 cm, further follow-up outpatient. Nonpressure chronic ulcers of bilateral lower extremities, wound care team following Chronic intermittent asthma PONV Diabetes mellitus Hypertension History of left breast cancer status post left mastectomy Protein calorie malnutrition, most recent albumin 2.4, on TPN via PICC line. Ascites, status post paracentesis, no fluid studies obtained, in a patient with no prior history of ascites or liver disease. Plan: Continue on current medication regime ,monitoring and symptomatic treatment. Patient's condition warrants closer monitoring, transfer to ICU ordered, puller over notified. Per general surgery, Prognosis guarded given multiple complex medical issues. The impression and plan of care has been dictated as directed. : I performed a history and examination of this patient, discussed the same with the dictator. I agree with the dictator's note ,documented as a scribe. Any additional findings or plans will be noted.
[2023-02-05 23:52] LABS: Glucose,Whole Blood 310 mg/dL (70-110)
[2023-02-06] MEDS: PIPERACILLIN-TAZOBACTAM 3.375 GM in SODIUM CHLORIDE 0.9% 100 ML IVPB SCH ×3 (00:25→17:01)
[2023-02-06] MEDS: DILTIAZEM 125 MG in SODIUM CHLORIDE 0.9% 100 ML IV SCH ×2 (00:26→19:35)
[2023-02-06] MEDS: INSULIN ASPART (NovoLOG) 100 UNIT/ML VIAL SQ SCH ×4 (00:26→19:35)
[2023-02-06] MEDS: MORPHINE SULFATE 4 MG/ML SYRINGE IV PRN ×2 (02:43→23:26)
[2023-02-06 04:51] LABS: Partial Thromboplastin Time 51.3 sec (22.0-30.0); Prothrombin Time 10.2 sec (9.0-12.0)
[2023-02-06 04:55] LABS: ALT 14 U/L (4-34); AST 22 U/L (14-36); African American GFR (CKD) 89 (>60 ml/min/1.73 sqM); Albumin 2.1 g/dL (3.5-5.0); Alkaline Phosphatase 48 U/L (38-126); Anion Gap 4 mmol/L; Blood Urea Nitrogen 34 mg/dL (7-17); Calcium 7.3 mg/dL (8.4-10.2); Carbon Dioxide 28 mmol/L (22-30); Chloride 102 mmol/L (98-107); Glucose 298 mg/dL (74-99); Non-African American GFR(CKD) 77 (>60 ml/min/1.73 sqM); Phosphorus 2.6 mg/dL (2.5-4.5); Potassium 4.2 mmol/L (3.5-5.1); Sodium 134 mmol/L (137-145); Total Bilirubin 0.6 mg/dL (0.2-1.3); Total Protein 4.2 g/dL (6.3-8.2)
[2023-02-06 05:05] LABS: HCT 33.7 % (34.0-46.0); HGB 10.7 gm/dL (11.4-16.0); MCH 30.7 pg (25.0-35.0); MCHC 31.9 g/dL (31.0-37.0); MCV 96.1 fL (80.0-100.0); Mean Platelet Volume 11.4; Platelet Count 171 k/uL (150-450)
[2023-02-06] MEDS: 1: MVI, ADULT NO.4 WITH VIT K 10 ML, TRACE (CONC-1ML/DOSE) 1 ML, SODIUM CHLORIDE 4MEQ/ML IV SCH ×12 (05:15→17:29)
[2023-02-06 06:08] LABS: Glucose,Whole Blood 261 mg/dL (70-110)
[2023-02-06] MEDS: SODIUM CHLORIDE 0.9% 1,000 ML IV SCH (06:37)
[2023-02-06] MEDS: IPRATROPIUM-ALBUTEROL 3 ML NEB INHALATION SCH ×4 (08:16→20:28)
[2023-02-06] MEDS ORDERED: FUROSEMIDE 10 MG/ML 4 ML VIAL IV STA (08:22)
[2023-02-06] MEDS: ATORVASTATIN 10 MG TAB PO SCH (08:28)
[2023-02-06] MEDS: METOPROLOL TARTRATE 25 MG TAB PO SCH ×2 (08:28→20:16)
[2023-02-06] MEDS: PRAMIPEXOLE 1 MG TAB PO SCH ×2 (08:29→20:16)
[2023-02-06] MEDS: SPIRONOLACTONE 25 MG TAB PO SCH (08:29)
[2023-02-06] MEDS: PANTOPRAZOLE 40 MG/10 ML VIAL IVP SCH ×2 (08:37→20:19)
--- NOTE | 2023-02-06 09:53 | XR ---
EXAMINATION TYPE: XR chest 1V portable DATE OF EXAM: 02/06/2023 COMPARISON: 02/05/2023 INDICATION: Short of breath TECHNIQUE: Single frontal view of the chest is obtained. FINDINGS: The heart size is mildly prominent. The pulmonary vasculature is prominent. There is opacification with barium aspiration through the left lung. Multiple surgical clips are left chest wall. Right side PICC line is present tip in the proximal right atrium. Mild scattered focal c hanges in the right lung, consider pulmonary edema within the differential. IMPRESSION: 1. Increasing mild infiltrate through the right lung. Correlate for pulmonary edema. Differential cou ld include atypical pneumonia. 2. Persistent high density opacification with barium through the diminished aerated left lung.
--- NOTE | 2023-02-06 10:11 | P.PN ---
Subjective Patient is seen in follow-up for acute kidney injury. Renal function at baseline. TPN started 02/01/2023. Became hypoxic and went into A. fib with RVR last night. Currently on heparin and Cardizem drip. No chest pain or shortness of breath at this time. Underlying liters nasal cannula. Vital signs are stable. General: No acute distress. HEENT: Head exam is unremarkable. On nasal cannula. LUNGS: No audible rhonchi or wheezes. HEART: Rate and Rhythm are regular. ABDOMEN: Nontender. EXTREMITITES: 1+ edema. Lower extremities wrapped. Objective - Vital Signs Vital signs: Vital Signs Temp 98.0 F 02/06/23 08:00 Pulse 86 02/06/23 10:00 Resp 22 02/06/23 10:00 BP 110/54 02/06/23 10:00 Pulse Ox 95 02/06/23 10:00 FiO2 7 02/06/23 08:19 Intake & Output 02/05/23 02/06/23 02/06/23 18:59 06:59 18:59 Intake Total 2296 2195.75 643.25 Output Total 835 585 570 Balance 1461 1610.75 73.25 Weight 89.2 kg Intake: IV 210 2090 580 Potassium Chloride 20 meq 210 Magnesium Sulfate gm 0.5 gm In Amino Acid 5%-D20w +Lytes*E* 1,000 ml @ 70 mls/hr IV .BY DURATION [facility] Rx#:[id number] Sodium Chloride 0.9% 1, 1100 220 000 ml @ 20 mls/hr IV . Q24H [facility] Rx#:[id number] Sodium Chloride 4Meq/ml 990 360 Vial 16 meq Potassium Chloride 10 meq Magnesium Sulfate gm 0.5 gm In Amino Acid 5%-D20w+Lytes* E* 1,000 ml @ 90 mls/hr IV .BY DURATION [facility] Rx#: [id number] Intake, IV Titration 2085 105.75 63.25 Amount Diltiazem 125 mg In 105.75 63.25 Sodium Chloride 0.9% 100 ml @ 7.5 MG/HR 7.5 mls/hr IV .[id number] [facility] Rx#: [id number] Mvi, Adult No.4 with Vit 826 K 10 ml Trace (Conc-1Ml/ Dose) 1 ml Potassium Chloride 20 meq Magnesium Sulfate gm 0.5 gm In Amino Acid 5%-D20w+Lytes* E* 1,000 ml @ 70 mls/hr IV .BY DURATION [facility] Rx#: [id number] Mvi, Adult No.4 with Vit 90 K 10 ml Trace (Conc-1Ml/ Dose) 1 ml Sodium Chloride 4Meq/ml Vial 32 meq Potassium Chloride 30 meq Sodium Phosphate 15 mmol Magnesium Sulfate gm 0.75 gm Calcium Gluconate 1 gm In Amino Acids 5 %/Dextrose 20 % 1 ,000 ml @ 70 mls/hr IV . BY DURATION [facility] Rx#: [id number] Piperacillin-Tazobactam 3 200 .375 gm In Sodium Chloride 0.9% 100 ml @ 25 mls/hr IVPB Q8HR [facility] Rx# :[id number] Sodium Chloride 0.9% 1, 700 000 ml @ 20 mls/hr IV . Q24H [facility] Rx#:[id number] Sodium Chloride 4Meq/ml 270 Vial 16 meq Potassium Chloride 10 meq Magnesium Sulfate gm 0.5 gm In Amino Acid 5%-D20w+Lytes* E* 1,000 ml @ 90 mls/hr IV .BY DURATION [facility] Rx#: [id number] Output: Urine 835 585 570 Other: Voiding Method Indwelling Catheter Indwelling Catheter Indwelling Catheter - Labs CBC & Chem 7: 02/06/23 04:03 02/06/23 04:03 Labs: Abnormal Lab Results - Last 24 Hours (Table) 02/05/23 02/05/23 02/05/23 Range/Units 11:44 17:27 18:40 RBC (3.80-5.40) m/uL Hgb (11.4-16.0) gm/dL Hct (34.0-46.0) % APTT 73.5 H (22.0-30.0) sec Sodium (137-145) mmol/L BUN (7-17) mg/dL Glucose (74-99) mg/dL POC Glucose (mg/dL) 321 H 311 H (70-110) mg/dL Hemoglobin A1c (<=6.0) % Calcium (8.4-10.2) mg/dL Total Protein (6.3-8.2) g/dL Albumin (3.5-5.0) g/dL 06/02/06/23 02/06/23 Range/Units 23:51 04:03 04:03 RBC (3.80-5.40) m/uL Hgb (11.4-16.0) gm/dL Hct (34.0-46.0) % APTT (22.0-30.0) sec Sodium 134 L (137-145) mmol/L BUN 34 H (7-17) mg/dL Glucose 298 H (74-99) mg/dL POC Glucose (mg/dL) 310 H (70-110) mg/dL Hemoglobin A1c 6.1 H (<=6.0) % Calcium 7.3 L (8.4-10.2) mg/dL Total Protein 4.2 L (6.3-8.2) g/dL Albumin 2.1 L (3.5-5.0) g/dL 02/06/23 02/06/23 02/06/23 Range/Units 04:03 04:03 06:06 RBC 3.50 L (3.80-5.40) m/uL Hgb 10.7 L (11.4-16.0) gm/dL Hct 33.7 L (34.0-46.0) % APTT 51.3 H (22.0-30.0) sec Sodium (137-145) mmol/L BUN (7-17) mg/dL Glucose (74-99) mg/dL POC Glucose (mg/dL) 261 H (70-110) mg/dL Hemoglobin A1c (<=6.0) % Calcium (8.4-10.2) mg/dL Total Protein (6.3-8.2) g/dL Albumin (3.5-5.0) g/dL Assessment and Plan Plan: Assessment: 1. Acute kidney injury mostly prerenal poor and taken diuresis. Improved. Creatinine 1.65 on admission - 0.8 today. Patient received IV contrast on 01/31/2023 as well. No hydronephrosis noted on CT. UA fairly benign. 2. Ascites status post paracentesis with 4 L drained 02/01/2023. 3. Hypokalemia secondary to poor intake, diuretics, intracellular shifting from alkalosis. Replaced. Normal today. 4. Metabolic alkalosis from vomiting and diuresis. Improved. 5. Intractable nausea and vomiting. Surgery following. Started on TPN 02/01/2023. Possible gastric outlet obstruction. May need surgery this admission. 6. Diabetes mellitus. 7. Chronic lower extremity edema with venous stasis. 8. Hyponatremia from poor solute intake. Hypervolemic. Also component of hyp ertonicity from hyperglycemia. Urine sodium 92 and urine osmolality 413. Improved. 9. Hypomagnesemia from poor intake. Replaced. Improved. 10. A. fib with RVR maintained on heparin and Cardizem drip. Plan: TPN per surgery. Received another dose of IV Lasix this morning.
[2023-02-06 10:16] LABS: Band Neutrophils % 17 %; Eosinophils # (M) 0.06 k/uL (0-0.7); Lymphocytes # (M) 1.38 k/uL (1.0-4.8); Metamyelocytes # (M) 0.06 k/uL (0); Metamyelocytes % 1 %; Monocytes # (M) 0.72 k/uL (0-1.0); Neutrophils % (M) 47 %; Nucleated Red Blood Cells 0 /100 WBC (0-0); Total Cells Counted 200
[2023-02-06 10:17] LABS: RBC Morphology Normal; Toxic Vacuolation Present
--- NOTE | 2023-02-06 10:19 | P.PN ---
Subjective Progress Note Date: 02/06/23 Principal diagnosis: Barium aspiration. Pulmonary consult dated 02/04/2023. 67-year-old female who was seen initially in the emergency department, on January 30, with nausea, vomiting, and diarrhea. Today, the patient underwent a barium swallow this morning, followed by the EGD. Apparently during the EGD, she aspirated. Her chest x-ray after the procedure shows barium throughout the left lung. She is overall in phase I recovery. We were asked to see her. She's currently on 4 L of oxygen. She's getting saline at KVO. She's not having any respiratory distress. In my opinion, she can go back to the general floor that she came from. Now that we know about her, should there be any deterioration, we'll be able to respond quickly. The patient will have a chest x-ray done tomorrow. In addition, we looked at the chest x-ray today. Also, we'll make sure she gets some breathing treatments. Lab data today includes a white count 7.7, hemoglobin 11.3, hematocrit 36, and a normal platelet count. Sodium 130, potassium 4.0, chloride 96, CO2 28, anion gap 6, BUN 25, creatinine 0.83. Progress note dated 02/05/2023. The patient is seen today in room 356. Seen yesterday in consultation, in phase I recovery. She is currently on 4 L of oxygen, getting TPN at 70 mL now her, and saline at 10 mL an hour. The patient had a barium swallow in the morning yesterday, followed by an EGD. During the EGD, the patient aspirated barium into the left lung. Current laboratory data includes a white count 4.8, he will been 12.6, hematocrit 39.7, and a platelet count of 159,000. Sodium 129, potassium 5.7, chlorides 96, CO2 28, BUN 33, and creatinine 0.84. Albumin is 2.5. Chest x-ray shows barium throughout the left hemithorax. Progress note dated 02/06/2023. This is a 67-year-old female seen in the intensive care unit, room 256. We initially saw the patient in consultation, after a episode of barium aspiration. She was transferred to the intensive care unit, because of atrial fibrillation with rapid ventricular response. Her oxygen requirements have gone up, and she's currently on 7 L high flow oxygen. She's getting TPN at 90 mL an hour, heparin via weightbase protocol, saline at 100 mL an hour, and a Cardizem drip at 7.5 mg an hour. The patient was scheduled to have surgery today, but I think it's a good idea that we hold off and wait she is a bit more stable. Her saline IV will be made she vein open, and the patient will get some Lasix IV push. White count 6, hemoglobin 10.7, hematocrit 33.7, and platelet count 171,000. Sodium 134, potassium 4.2, chlorides 102, CO2 28, BUN 34, and creatinine 0.8. Chest x-ray shows barium aspiration throughout the left lung. There may be some infiltrate or atelectasis at the right lung base. Objective - Vital Signs Vital signs: Vital Signs Temp 98.0 F 02/06/23 08:00 Pulse 86 02/06/23 10:00 Resp 22 02/06/23 10:00 BP 110/54 02/06/23 10:00 Pulse Ox 95 02/06/23 10:00 FiO2 7 02/06/23 08:19 Intake & Output 02/05/23 02/06/23 02/06/23 18:59 06:59 18:59 Intake Total 2296 2195.75 643.25 Output Total 835 585 570 Balance 1461 1610.75 73.25 Weight 89.2 kg Intake: IV 210 0 580 Potassium Chloride 20 meq 210 Magnesium Sulfate gm 0.5 gm In Amino Acid 5%-D20w +Lytes*E* 1,000 ml @ 70 mls/hr IV .BY DURATION [facility] Rx#:[id number] Sodium Chloride 0.9% 1, 1100 220 000 ml @ 20 mls/hr IV . Q24H [facility] Rx#:[id number] Sodium Chloride 4Meq/ml 990 360 Vial 16 meq Potassium Chloride 10 meq Magnesium Sulfate gm 0.5 gm In Amino Acid 5%-D20w+Lytes* E* 1,000 ml @ 90 mls/hr IV .BY DURATION [facility] Rx#: [id number] Intake, IV Titration 2085 105.75 63.25 Amount Diltiazem 125 mg In 105.75 63.25 Sodium Chloride 0.9% 100 ml @ 7.5 MG/HR 7.5 mls/hr IV .[id number] [facility] Rx#: [id number] Mvi, Adult No.4 with Vit 826 K 10 ml Trace (Conc-1Ml/ Dose) 1 ml Potassium Chloride 20 meq Magnesium Sulfate gm 0.5 gm In Amino Acid 5%-D20w+Lytes* E* 1,000 ml @ 70 mls/hr IV .BY DURATION [facility] Rx#: [id number] Mvi, Adult No.4 with Vit 90 K 10 ml Trace (Conc-1Ml/ Dose) 1 ml Sodium Chloride 4Meq/ml Vial 32 meq Potassium Chloride 30 meq Sodium Phosphate 15 mmol Magnesium Sulfate gm 0.75 gm Calcium Gluconate 1 gm In Amino Acids 5 %/Dextrose 20 % 1 ,000 ml @ 70 mls/hr IV . BY DURATION [facility] Rx#: [id number] Piperacillin-Tazobactam 3 200 .375 gm In Sodium Chloride 0.9% 100 ml @ 25 mls/hr IVPB Q8HR [facility] Rx# :[id number] Sodium Chloride 0.9% 1, 700 000 ml @ 20 mls/hr IV . Q24H [facility] Rx#:[id number] Sodium Chloride 4Meq/ml 270 Vial 16 meq Potassium Chloride 10 meq Magnesium Sulfate gm 0.5 gm In Amino Acid 5%-D20w+Lytes* E* 1,000 ml @ 90 mls/hr IV .BY DURATION [facility] Rx#: [id number] Output: Urine 835 585 570 Other: Voiding Method Indwelling Catheter Indwelling Catheter Indwelling Catheter - Exam No acute distress, oriented 3. Currently on 7 L. No conversational dyspnea or use of accessory muscles. HEENT examination is grossly unremarkable. Neck supple. Full range of motion. No adenopathy thyromegaly or neck vein distention. Cardiovascular examination reveals regular rhythm rate. S1-S2 normal. No S3 or S4. No discernible murmur noted. Heart rate 86 bpm. Lungs reveal mild scattered rhonchi. No wheezes or crackles. Breath sounds are equal bilaterally. 7 L saturation is 95 %. Abdomen soft, with mild tenderness on palpation. Extremities are wrapped. They are chronically edematous. Skin is without rash or lesion. Neurologic examination is brief but nonfocal. - Labs CBC & Chem 7: 02/06/23 04:03 02/06/23 04:03 Labs: Abnormal Lab Results - Last 24 Hours (Table) 02/05/23 02/05/23 02/05/23 Range/Units 11:44 17:27 18:40 RBC (3.80-5.40) m/uL Hgb (11.4-16.0) gm/dL Hct (34.0-46.0) % APTT 73.5 H (22.0-30.0) sec Sodium (137-145) mmol/L BUN (7-17) mg/dL Glucose (74-99) mg/dL POC Glucose (mg/dL) 321 H 311 H (70-110) mg/dL Hemoglobin A1c (<=6.0) % Calcium (8.4-10.2) mg/dL Total Protein (6.3-8.2) g/dL Albumin (3.5-5.0) g/dL 02/05/23 02/06/23 02/06/23 Range/Units 23:51 04:03 04:03 RBC (3.80-5.40) m/uL Hgb (11.4-16.0) gm/dL Hct (34.0-46.0) % APTT (22.0-30.0) sec Sodium 134 L (137-145) mmol/L BUN 34 H (7-17) mg/dL Glucose 298 H (74-99) mg/dL POC Glucose (mg/dL) 310 H (70-110) mg/dL Hemoglobin A1c 6.1 H (<=6.0) % Calcium 7.3 L (8.4-10.2) mg/dL Total Protein 4.2 L (6.3-8.2) g/dL Albumin 2.1 L (3.5-5.0) g/dL 02/06/23 02/06/23 02/06/23 Range/Units 04:03 04:03 06:06 RBC 3.50 L (3.80-5.40) m/uL Hgb 10.7 L (11.4-16.0) gm/dL Hct 33.7 L (34.0-46.0) % APTT 51.3 H (22.0-30.0) sec Sodium (137-145) mmol/L BUN (7-17) mg/dL Glucose (74-99) mg/dL POC Glucose (mg/dL) 261 H (70-110) mg/dL Hemoglobin A1c (<=6.0) % Calcium (8.4-10.2) mg/dL Total Protein (6.3-8.2) g/dL Albumin (3.5-5.0) g/dL Assessment and Plan Assessment: Acute hypoxemic respiratory failure secondary to barium aspiration. S/P EGD (02/04/2023), with barium aspiration primarily into the left lung. Acute atrial fibrillation, with rapid ventricular response. S/P barium swallow, 02/04/2023. History of hypertension. History of left breast cancer, S/P left mastectomy. History of diabetes mellitus. History of asthma. Lifelong nonsmoker. History of migraine cephalgia. History of restless leg syndrome. Plan: Plan dated 02/04/2023. She is seen in phase I recovery. She appears relatively stable. Her chest x- ray clearly shows barium aspiration into the left lung. She's on 4 L of nasal cannula. She has no history of any lung issues. She does not use oxygen at home. She's getting saline at KVO. Chest x-ray done in the morning. We had some breathing treatments to her regimen. Will watch her very closely. Should there be any deterioration, we could certainly move her into the intensive care unit at that time. Plan dated 02/05/2023. The patient was initially seen in room 356. She appeared relatively stable and was on oxygen at 4 L. She is also getting a keep vein open saline IV, and TPN. Labs, x-rays, and medications are reviewed. When we saw her, she was stable. Subsequently, she developed atrial fibrillation with RVR. She was placed on a Cardizem drip and IV heparin. A rapid response team was called to the patient's room, and I spoke to the charge nurse, and we decided to transfer the patient to the intensive care unit. Additional recommendations and suggestions are forthcoming. There was no significant decline in her respiratory status, rather this was a primary cardiovascular issue. Plan dated 02/06/2023. The patient's oxygen requirements have gone up to 7 L high flow. In addition, yesterday she developed atrial fibrillation with RVR, and is currently on IV heparin, and a Cardizem drip. Labs, x-rays, and medications are reviewed. I think it's a good idea that she does not have surgery today. There were plan rush to do an exploratory laparotomy on this patient. She may be more stable tomorrow or the day after. Additional recommendations and suggestions are forthcoming. Labs, x-rays, medications are all reviewed. Prognosis is guarded. Time with Patient: Greater than 30
[2023-02-06 11:36] LABS: Glucose,Whole Blood 292 mg/dL (70-110)
[2023-02-06] MEDS: HEPARIN SOD,PORK IN 0.45% NACL 25,000 UNIT in 0.45% NACL 1 250ML.BAG IV SCH (13:06)
--- NOTE | 2023-02-06 13:29 | P.PN ---
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 Reports she has not been able to keep any of her medications down. Denies abdominal pain.Patient previously had symptoms of gastroesophageal reflux disease, nausea and vomiting over 3 months prior to visit with GI. She completed an EGD with Dr. Stephanie Young,GI 10/19/22, reporting a large hiatal hernia, mild antral gastritis, biopsies obtained, Protonix 40 twice a day initiated and patient was referred to Dr. Cesar, general surgery, if no improvement in symptoms in 6-8 weeks. Duodenum, biopsy Pathology reported benign small bowel mucosa with intact villous architecture, negative for histopathologic abnormality, H pylori not identified, negative for fungal organisms. Denies chest pain, palpitations or shortness of breath. Afebrile, normal WBC. Hemoglobin 11.8, platelets 296, INR 1.1. Sodium 132, potassium 2.5, chloride 75, bicarb 47, BUN 36 creatinine 1.29. Lactic acid 1.9, phospho wing 3.2, magnesium 2.2, total bili 1.6, troponin 0.062, lipase 75. 02/01/2023 significant improvement of potassium, up to 3.5 , magnesium 2.2.continues to have emesis post consumption of clear liquids-denies nausea. Denies abdominal pain. Abdomen soft despite ct report of large ascites. CT of chest, abdomen and pelvis completed yesterday reporting small hiatal hernia, large volume ascites, anteverted uterus with right adnexal cystic lesion measuring 2.9 cm, colonic diverticulosis, mildly distended fluid-filled esophagus, could be related to esophagitis versus reflux, cholelithiasis, small bilateral pleural effusions with associated atelectasis, questionable septal nodular contour to the liver. PICC line pending ordered for TPN. 02/04/2023 Status post paracentesis with 4 L removed-unfortunately fluid studies were not collected .Esophagram pending as warranted by CT's report of distended fluid-filled esophagus. GI services return today,consult in place, recommendations pending. Labs pending. Maintaining O2 sats of 98% on 2 L nasal cannula. Afebrile. 02/05/2023 Currently NPO, upper GI completed yesterday am reporting limited study probable presbyesophagus and small hiatal hernia. Yesterday afternoon EGD performed by general surgery reporting retained barium in the proximal stomach and evidence of a small hiatal hernia. Patient apparently aspirated during the procedure . Postprocedure chest x-ray performed reporting barium throughout the airway, diffusely throughout the left lung compatible with widespread aspiration, bilateral lower lobe infiltrate and small effusion,esophagus appears dilated, there is a small patch of the stomach appears markedly irregular. The distal gastric abnormality is suspected includes neoplastic process or obstruction. This morning patient developed atrial fibrillation with RVR, cardiology consulted, Cardizem and heparin drips initiated. Blood pressures soft prior to the initiation of Cardizem drip, maintaining O2 sats in the low 90s on 4 L nasal cannula, short of breath with conversing, Transfer to ICU ordered. Afebrile. 02/06/2023 transferred to ICU yesterday secondary to further decline status post barium aspiration, A. fib with RVR , shortness of breath, requiring closer monitoring. Oxygen requirements increased shortly after her admission into the ICU, currently requiring 9 L high flow nasal cannula, maintaining O2 sats in the 90s. Chest x-ray reporting increasing mild infiltrate to the right lung, corre late for pulmonary edema, atypical pneumonia, persistent hypodensity opacification with barium through the diminished aerated left lung. Patient is unstable for surgery at this time. Maintained on Cardizem and heparin drips. Telemetry A. fib relation with heart rate better controlled. TPN continues. Afebrile, T-max 99.5, WBC 6. Hemoglobin decreased to 10.7, platelets 171, INR 1. Sodium 134, potassium 4.2, bicarb 28, BUN 34, creatinine 0.8. A1c 6.1. Blood sugars uncontrolled, on TPN. Objective - Vital Signs Vital signs: Vital Signs Temp 98.0 F 02/06/23 08:00 Pulse 88 02/06/23 11:16 Resp 26 H 02/06/23 11:00 BP 103/52 02/06/23 11:00 Pulse Ox 96 02/06/23 11:00 FiO2 7 02/06/23 08:19 Intake & Output 02/05/23 02/06/23 02/06/23 18:59 06:59 18:59 Intake Total 2296 2195.75 743.25 Output Total 835 585 870 Balance 1461 1610.75 -126.75 Weight 89.2 kg Intake: IV 210 2090 680 Potassium Chloride 20 meq 210 Magnesium Sulfate gm 0.5 gm In Amino Acid 5%-D20w +Lytes*E* 1,000 ml @ 70 mls/hr IV .BY DURATION [facility] Rx#:[id number] Sodium Chloride 0.9% 1, 1100 230 000 ml @ 20 mls/hr IV . Q24H [facility] Rx#:[id number] Sodium Chloride 4Meq/ml 990 450 Vial 16 meq Potassium Chloride 10 meq Magnesium Sulfate gm 0.5 gm In Amino Acid 5%-D20w+Lytes* E* 1,000 ml @ 90 mls/hr IV .BY DURATION [facility] Rx#: [id number] Intake, IV Titration 2085 105.75 63.25 Amount Diltiazem 125 mg In 105.75 63.25 Sodium Chloride 0.9% 100 ml @ 7.5 MG/HR 7.5 mls/hr IV .[id number] [facility] Rx#: [id number] Mvi, Adult No.4 with Vit 826 K 10 ml Trace (Conc-1Ml/ Dose) 1 ml Potassium Chloride 20 meq Magnesium Sulfate gm 0.5 gm In Amino Acid 5%-D20w+Lytes* E* 1,000 ml @ 70 mls/hr IV .BY DURATION [facility] Rx#: [id number] Mvi, Adult No.4 with Vit 90 K 10 ml Trace (Conc-1Ml/ Dose) 1 ml Sodium Chloride 4Meq/ml Vial 32 meq Potassium Chloride 30 meq Sodium Phosphate 15 mmol Magnesium Sulfate gm 0.75 gm Calcium Gluconate 1 gm In Amino Acids 5 %/Dextrose 20 % 1 ,000 ml @ 70 mls/hr IV . BY DURATION [facility] Rx#: [id number] Piperacillin-Tazobactam 3 200 .375 gm In Sodium Chloride 0.9% 100 ml @ 25 mls/hr IVPB Q8HR [facility] Rx# :[id number] Sodium Chloride 0.9% 1, 700 000 ml @ 20 mls/hr IV . Q24H [facility] Rx#:[id number] Sodium Chloride 4Meq/ml 270 Vial 16 meq Potassium Chloride 10 meq Magnesium Sulfate gm 0.5 gm In Amino Acid 5%-D20w+Lytes* E* 1,000 ml @ 90 mls/hr IV .BY DURATION [facility] Rx#: [id number] Output: Urine 835 585 870 Other: Voiding Method Indwelling Catheter Indwelling Catheter Indwelling Catheter - Exam PHYSICAL EXAM: VITAL SIGNS: [As above] GENERAL: Alert and oriented 3, Sitting up in bed, currently 9 L high flow nasal cannula HEENT: Normocephalic, Conjunctivae normal. eyes normal. Sclera anicteric. NECK: Supple, No JVD. CARDIOVASCULAR: S1, S2 regular.No murmur RESPIRATION: rhonchi scattered throughout ABDOMEN: Soft, nondistended, minimal diffuse tenderness . No guarding, no rigidity. Positive bowel sounds. LEGS: Chronic bilateral lower extremity edema, dressings present NERVOUS SYSTEM: Cranial N 2-12 grossly normal. Generalized weakness.No focal deficits. Strength and sensation grossly intact. Skin: Warm and dry, no rash - Labs CBC & Chem 7: 02/06/23 04:03 02/06/23 04:03 Labs: Abnormal Lab Results - Last 24 Hours (Table) 02/05/23 02/05/23 02/05/23 Range/Units 11:44 17:27 18:40 RBC (3.80-5.40) m/uL Hgb (11.4-16.0) gm/dL Hct (34.0-46.0) % Metamyelocytes # (Man) (0) k/uL APTT 73.5 H (22.0-30.0) sec Sodium (137-145) mmol/L BUN (7-17) mg/dL Glucose (74-99) mg/dL POC Glucose (mg/dL) 321 H 311 H (70-110) mg/dL Hemoglobin A1c (<=6.0) % Calcium (8.4-10.2) mg/dL Total Protein (6.3-8.2) g/dL Albumin (3.5-5.0) g/dL 02/05/23 02/06/23 02/06/23 Range/Units 23:51 04:03 04:03 RBC (3.80-5.40) m/uL Hgb (11.4-16.0) gm/dL Hct (34.0-46.0) % Metamyelocytes # (Man) (0) k/uL APTT (22.0-30.0) sec Sodium 134 L (137-145) mmol/L BUN 34 H (7-17) mg/dL Glucose 298 H (74-99) mg/dL POC Glucose (mg/dL) 310 H (70-110) mg/dL Hemoglobin A1c 6.1 H (<=6.0) % Calcium 7.3 L (8.4-10.2) mg/dL Total Protein 4.2 L (6.3-8.2) g/dL Albumin 2.1 L (3.5-5.0) g/dL 02/06/23 02/06/23 02/06/23 Range/Units 04:03 04:03 06:06 RBC 3.50 L (3.80-5.40) m/uL Hgb 10.7 L (11.4-16.0) gm/dL Hct 33.7 L (34.0-46.0) % Metamyelocytes # (Man) 0.06 H (0) k/uL APTT 51.3 H (22.0-30.0) sec Sodium (137-145) mmol/L BUN (7-17) mg/dL Glucose (74-99) mg/dL POC Glucose (mg/dL) 261 H (70-110) mg/dL Hemoglobin A1c (<=6.0) % Calcium (8.4-10.2) mg/dL Total Protein (6.3-8.2) g/dL Albumin (3.5-5.0) g/dL 02/06/23 Range/Units 11:35 RBC (3.80-5.40) m/uL Hgb (11.4-16.0) gm/dL Hct (34.0-46.0) % Metamyelocytes # (Man) (0) k/uL APTT (22.0-30.0) sec Sodium (137-145) mmol/L BUN (7-17) mg/dL Glucose (74-99) mg/dL POC Glucose (mg/dL) 292 H (70-110) mg/dL Hemoglobin A1c (<=6.0) % Calcium (8.4-10.2) mg/dL Total Protein (6.3-8.2) g/dL Albumin (3.5-5.0) g/dL Assessment and Plan Assessment: Intractable nausea and vomiting secondary to large hiatal hernia per recent EGD on 10/18. CT suggestive of large volume ascites, small hiatal hernia, distended fluid-filled esophagus, questionable subtle nodular contour of the liver. Chest x-ray post EGD reporting small patch of the stomach appears markedly irregular,distal gastric abnormality is suspected ,includes neoplastic process or obstruction. General surgery planning exploratory laparotomy once patient stabilizes. Atrial fibrillation with RVR Status post esophagogram 02/04/2023 Status post EGD 02/04/2023 with barium aspiration-left lung Dehydration secondary to the above Acute renal failure secondary to the above Hypokalemia, severe, resolved History of antral gastritis CT reporting right adnexal cystic lesion 2.9 cm, further follow-up outpatient. Nonpressure chronic ulcers of bilateral lower extremities, wound care team following Chronic intermittent asthma PONV Diabetes mellitus Hypertension History of left breast cancer status post left mastectomy Protein calorie malnutrition, most recent albumin 2.4, on TPN via PICC line. Ascites, status post paracentesis, no fluid studies obtained, in a patient with no prior history of ascites or liver disease. Plan: Continue on current medication regime ,monitoring and symptomatic treatment. Oxygen requirements worsened, currently unstable for surgery. Antiarrhythmics as per cardiology. Diagnosis cardiac and multiple complex medical issues. The impression and plan of care has been dictated as directed. : I performed a history and examination of this patient, discussed the same with the dictator. I agree with the dictator's note ,documented as a scribe. Any additional findings or plans will be noted.
--- NOTE | 2023-02-06 13:54 | PN ---
PROGRESS NOTE SUBJECTIVE: This lady has abdominal pain and discomfort. She was going for explorative laparotomy yesterday. She went into atrial fibrillation with rapid rate. I started her on Cardizem, and she has converted to sinus rhythm. She is in sinus mechanism and hemodynamically stable. She is supposed to be n.p.o., and going for surgery probably in the next day or 2. OBJECTIVE: VITAL SIGNS: Stable. HEART: S1 and S2 heard normally. Short systolic murmur noted. LUNGS: Reveal fair air entry. ABDOMEN: Soft. Detailed exam not performed. PLAN: To continue IV heparin and also decrease the Cardizem to 5 mg/hour and see how she does. When she is able to take oral medications, I will put her on anticoagulants, but it is likely that she is going for surgery tomorrow. MMODL / IJN: [id number] /
[2023-02-06] MEDS: METOPROLOL TARTRATE 12.5 MG TAB PO SCH (14:34)
--- NOTE | 2023-02-06 15:21 | P.PN ---
Subjective Progress Note Date: 02/06/23 CHIEF COMPLAINT: Vomiting HISTORY OF PRESENT ILLNESS: The patient remains in the ICU. She is on high flow nasal cannula at 9 L. Her heart rate is better controlled. She remains nothing by mouth. Denies any abdominal pain. Denies any nausea or vomiting. Patient was simply scheduled for exploratory laparoscopy with possible partial gastrectomy today. However, patient's respiratory status is still poor. Pulmonary service recommends to hold off on surgery until patient is more stable. Afebrile. WBC 6.0HgB 10.7 platelets 171 sodium is 134 potassium 4.2 creatinine 0.80 PHYSICAL EXAM: VITAL SIGNS: Reviewed. GENERAL: Well-developed in no acute distress. ABDOMEN: Soft. Nondistended. Nontender. NEUROLOGIC: Alert and oriented. Cranial nerves II through XII grossly intact. ASSESSMENT: 1. Possible gastric outlet obstruction with intractable vomiting 2. Status post EGD with aspiration of barium into the left lung 3. Small hiatal hernia 4. A. fib with RVR 5. Status post EGD with barium aspiration primary into the left lung PLAN: -Exploratory laparotomy with possible partial gastrectomy has been rescheduled for 02/11/[address] anand -Keep patient nothing by mouth -Continue ICU management -Continue TPN for nutrition support -Continue supportive care Physician Sponsorship Manager note has been reviewed by physician. Signing provider agrees with the documented findings, assessment, and plan of care. Objective - Vital Signs Vital signs: Vital Signs Temp 98.2 F 02/06/23 12:00 Pulse 98 02/06/23 14:58 Resp 24 02/06/23 14:00 BP 105/53 02/06/23 14:00 Pulse Ox 93 L 02/06/23 14:00 FiO2 7 02/06/23 08:19 Intake & Output 02/05/23 02/06/23 02/06/23 18:59 06:59 18:59 Intake Total 2296 2195.75 1290.65 Output Total 483 438 7100 Balance 1461 1610.75 -139.35 Weight 89.2 kg Intake: IV 210 2090 980 Potassium Chloride 20 meq 210 Magnesium Sulfate gm 0.5 gm In Amino Acid 5%-D20w +Lytes*E* 1,000 ml @ 70 mls/hr IV .BY DURATION [facility] Rx#:[id number] Sodium Chloride 0.9% 1, 1100 260 000 ml @ 20 mls/hr IV . Q24H [facility] Rx#:[id number] Sodium Chloride 4Meq/ml 990 720 Vial 16 meq Potassium Chloride 10 meq Magnesium Sulfate gm 0.5 gm In Amino Acid 5%-D20w+Lytes* E* 1,000 ml @ 90 mls/hr IV .BY DURATION [facility] Rx#: [id number] Intake, IV Titration 2085 105.75 310.65 Amount Diltiazem 125 mg In 105.75 63.25 Sodium Chloride 0.9% 100 ml @ 7.5 MG/HR 7.5 mls/hr IV .[id number] [facility] Rx#: [id number] Heparin Sod,Pork in 0.45% 247.4 NaCl 25,000 unit In 0.45 % NaCl 1 250ml.bag @ 12 UNITS/KG/HR 9.798 mls/hr IV .Q24H [facility] Rx#: [id number] Mvi, Adult No.4 with Vit 826 K 10 ml Trace (Conc-1Ml/ Dose) 1 ml Potassium Chloride 20 meq Magnesium Sulfate gm 0.5 gm In Amino Acid 5%-D20w+Lytes* E* 1,000 ml @ 70 mls/hr IV .BY DURATION [facility] Rx#: [id number] Mvi, Adult No.4 with Vit 90 K 10 ml Trace (Conc-1Ml/ Dose) 1 ml Sodium Chloride 4Meq/ml Vial 32 meq Potassium Chloride 30 meq Sodium Phosphate 15 mmol Magnesium Sulfate gm 0.75 gm Calcium Gluconate 1 gm In Amino Acids 5 %/Dextrose 20 % 1 ,000 ml @ 70 mls/hr IV . BY DURATION [facility] Rx#: [id number] Piperacillin-Tazobactam 3 200 .375 gm In Sodium Chloride 0.9% 100 ml @ 25 mls/hr IVPB Q8HR [facility] Rx# :[id number] Sodium Chloride 0.9% 1, 700 000 ml @ 20 mls/hr IV . Q24H [facility] Rx#:[id number] Sodium Chloride 4Meq/ml 270 Vial 16 meq Potassium Chloride 10 meq Magnesium Sulfate gm 0.5 gm In Amino Acid 5%-D20w+Lytes* E* 1,000 ml @ 90 mls/hr IV .BY DURATION [facility] Rx#: [id number] Output: Urine [phone] Other: Voiding Method Indwelling Catheter Indwelling Catheter Indwelling Catheter - Labs CBC & Chem 7: 02/06/23 04:03 02/06/23 04:03 Labs: Abnormal Lab Results - Last 24 Hours (Table) 02/05/23 02/05/23 02/05/23 Range/Units 17:27 18:40 23:51 RBC (3.80-5.40) m/uL Hgb (11.4-16.0) gm/dL Hct (34.0-46.0) % Metamyelocytes # (Man) (0) k/uL APTT 73.5 H (22.0-30.0) sec Sodium (137-145) mmol/L BUN (7-17) mg/dL Glucose (74-99) mg/dL POC Glucose (mg/dL) 311 H 310 H (70-110) mg/dL Hemoglobin A1c (<=6.0) % Calcium (8.4-10.2) mg/dL Total Protein (6.3-8.2) g/dL Albumin (3.5-5.0) g/dL 02/06/23 02/06/23 02/06/23 Range/Units 04:03 04:03 04:03 RBC 3.50 L (3.80-5.40) m/uL Hgb 10.7 L (11.4-16.0) gm/dL Hct 33.7 L (34.0-46.0) % Metamyelocytes # (Man) 0.06 H (0) k/uL APTT (22.0-30.0) sec Sodium 134 L (137-145) mmol/L BUN 34 H (7-17) mg/dL Glucose 298 H (74-99) mg/dL POC Glucose (mg/dL) (70-110) mg/dL Hemoglobin A1c 6.1 H (<=6.0) % Calcium 7.3 L (8.4-10.2) mg/dL Total Protein 4.2 L (6.3-8.2) g/dL Albumin 2.1 L (3.5-5.0) g/dL 02/06/23 02/06/23 02/06/23 Range/Units 04:03 06:06 11:35 RBC (3.80-5.40) m/uL Hgb (11.4-16.0) gm/dL Hct (34.0-46.0) % Metamyelocytes # (Man) (0) k/uL APTT 51.3 H (22.0-30.0) sec Sodium (137-145) mmol/L BUN (7-17) mg/dL Glucose (74-99) mg/dL POC Glucose (mg/dL) 261 H 292 H (70-110) mg/dL Hemoglobin A1c (<=6.0) % Calcium (8.4-10.2) mg/dL Total Protein (6.3-8.2) g/dL Albumin (3.5-5.0) g/dL
--- NOTE | 2023-02-06 15:25 | P.PN ---
Subjective Progress Note Date: 02/06/23 Principal diagnosis: Vomiting, dysphagia This is a 67-year-old female with multiple comorbidities including GERD, asthma, diabetes mellitus, hypertension, neurologic disorder, breast cancer status post left mastectomy, chronic kidney disease, nonpressure chronic ulcers and chronic vomiting who presented to the emergency department last week for intractable vomiting. Patient states she has been vomiting for the last 1-1-1/2 years. She does state that it has gotten much worse over the last 2-3 weeks which she states that she is unable to keep liquids or food down. States that once she swallows and it goes down it will come right back up. She believes that she has lost around 20 pounds in the last few weeks. She has become more weak and dehydrated. She denies any nausea associated with vomiting. Denies any abdominal pain. No hematemesis. She recently saw Dr. Young for outpatient upper endoscopy 10/19/2022 which revealed a large hiatal hernia and mild antral gastritis. Patient then saw nurse practitioner from Dr. Young's office last week, however patient does not recall what they told her. According to last endoscopy note from September patient was supposed to follow-up and if no improvement in symptoms of be referred to general surgeon for possible surgery for hiatal hernia. Patient denies seeing any surgeon in the outpatient setting. Gen. surgery was consulted during this admission. Her diet was advanced however she states she is not able to keep solids down. She had a PICC line placed and TPN was started. This morning she underwent esophagram which is currently pending. During this admission she also had an CT of the chest abdomen pelvis with contrast that reported large-volume ascites, heterogeneous appearance of to anteverted uterus with right adnexal cystic lesion measuring up to 2.9 cm. Further evaluation with pelvic ultrasound recommended. Colonic diverticulosis without evidence for acute diverticulosis. Mildly distended fluid-filled esophagus. Could be related to esophagitis versus reflux. This can be further evaluated with esophagram as clinically indicated. Cholelithiasis. Small bilateral pleural effusion with associated atelectasis. Questionable subtle nodular contour of liver. Correlate with liver function tests for cirrhosis. Patient did undergo a paracentesis with 4 L removed. She denies any previous history of liver disease are previous paracentesis. No history of alcohol abuse in the past. No fluid studies were collected during the paracentesis. On admission patient was noted to have a total bilirubin of 1.6 with normal AST ALT and alkaline phosphatase, total bilirubin last repeated on 02/02/2023 0.9 AST 31 ALT 18 alkaline phosphatase 56. These labs currently pending. 02/05/2023 Patient seen and examined today as a follow-up. She is sitting up in the bedside chair. She is currently nothing by mouth. Yesterday morning she underwent upper GI, then in the afternoon general surgery performed EGD and during procedure aspirated with a chest x-ray showing barium throughout the left lung. She is currently stating her breathing is good. She is denying any abdominal pain, nausea or vomiting at this time. Reviewing general surgery's note recent imaging was reviewed between general surgeon and radiology with concerns for abnormal antrum or pylorus in the first part of the small bowel questionable gastric outlet syndrome versus obstruction/mass. Patient is tentatively scheduled to undergo exploratory laparotomy tomorrow if stable. Patient is currently afebrile. She was started on IV Zosyn yesterday. Today patient had EKG showing atrial fibrillation and has been started on a heparin drip from cardiology this morning. 02/06/2023 Patient seen and examined today as a follow-up. She is in the ICU. She was tentatively scheduled for exploratory laparotomy with general surgery however been placed on hold. She currently denies any abdominal pain, nausea or vomiting. She is on 8 liters high flow nasal cannula with saturations with saturations around 91 and 93%. Repeat chest x-ray showed increasing mild infiltrate throughout right lung. Correlate for pulmonary edema. Differential could include atypical pneumonia. Persistent high density a suffocation with barium through the diminished aerated Left lung. Objective - Vital Signs Vital signs: Vital Signs Temp 98.2 F 02/06/23 12:00 Pulse 92 02/06/23 14:44 Resp 24 02/06/23 14:00 BP 105/53 02/06/23 14:00 Pulse Ox 93 L 02/06/23 14:00 FiO2 7 02/06/23 08:19 Intake & Output 02/05/23 02/06/23 02/06/23 18:59 06:59 18:59 Intake Total 2296 2195.75 1290.65 Output Total 620 497 0235 Balance 1461 1610.75 -139.35 Weight 89.2 kg Intake: IV 210 2090 980 Potassium Chloride 20 meq 210 Magnesium Sulfate gm 0.5 gm In Amino Acid 5%-D20w +Lytes*E* 1,000 ml @ 70 mls/hr IV .BY DURATION [facility] Rx#:[id number] Sodium Chloride 0.9% 1, 1100 260 000 ml @ 20 mls/hr IV . Q24H [facility] Rx#:[id number] Sodium Chloride 4Meq/ml 990 720 Vial 16 meq Potassium Chloride 10 meq Magnesium Sulfate gm 0.5 gm In Amino Acid 5%-D20w+Lytes* E* 1,000 ml @ 90 mls/hr IV .BY DURATION [facility] Rx#: [id number] Intake, IV Titration 2085 105.75 310.65 Amount Diltiazem 125 mg In 105.75 63.25 Sodium Chloride 0.9% 100 ml @ 7.5 MG/HR 7.5 mls/hr IV .[id number] [facility] Rx#: [id number] Heparin Sod,Pork in 0.45% 247.4 NaCl 25,000 unit In 0.45 % NaCl 1 250ml.bag @ 12 UNITS/KG/HR 9.798 mls/hr IV .Q24H [facility] Rx#: [id number] Mvi, Adult No.4 with Vit 826 K 10 ml Trace (Conc-1Ml/ Dose) 1 ml Potassium Chloride 20 meq Magnesium Sulfate gm 0.5 gm In Amino Acid 5%-D20w+Lytes* E* 1,000 ml @ 70 mls/hr IV .BY DURATION [facility] Rx#: [id number] Mvi, Adult No.4 with Vit 90 K 10 ml Trace (Conc-1Ml/ Dose) 1 ml Sodium Chloride 4Meq/ml Vial 32 meq Potassium Chloride 30 meq Sodium Phosphate 15 mmol Magnesium Sulfate gm 0.75 gm Calcium Gluconate 1 gm In Amino Acids 5 %/Dextrose 20 % 1 ,000 ml @ 70 mls/hr IV . BY DURATION [facility] Rx#: [id number] Piperacillin-Tazobactam 3 200 .375 gm In Sodium Chloride 0.9% 100 ml @ 25 mls/hr IVPB Q8HR [facility] Rx# :[id number] Sodium Chloride 0.9% 1, 700 000 ml @ 20 mls/hr IV . Q24H [facility] Rx#:[id number] Sodium Chloride 4Meq/ml 270 Vial 16 meq Potassium Chloride 10 meq Magnesium Sulfate gm 0.5 gm In Amino Acid 5%-D20w+Lytes* E* 1,000 ml @ 90 mls/hr IV .BY DURATION [facility] Rx#: [id number] Output: Urine 460 623 1182 Other: Voiding Method Indwelling Catheter Indwelling Catheter Indwelling Catheter - Exam General appearance: The patient is alert, oriented, appears in no acute distress. Nasal cannula in place with 2 L of oxygen. HET: Head is normocephalic and atraumatic. Conjunctiva pink. Sclera anicteric. Neck: Supple without lymphadenopathy. Abdomen: Soft, nontender, nondistended with bowel sounds. No guarding or rigidity. Extremities: Bilateral lower extremity edema, with dressings in place. Skin: No rashes, no jaundice Neurological: No focal deficits. Alert and oriented. - Labs CBC & Chem 7: 02/06/23 04:03 02/06/23 04:03 Labs: Abnormal Lab Results - Last 24 Hours (Table) 02/05/23 02/05/23 02/05/23 Range/Units 17:27 18:40 23:51 RBC (3.80-5.40) m/uL Hgb (11.4-16.0) gm/dL Hct (34.0-46.0) % Metamyelocytes # (Man) (0) k/uL APTT 73.5 H (22.0-30.0) sec Sodium (137-145) mmol/L BUN (7-17) mg/dL Glucose (74-99) mg/dL POC Glucose (mg/dL) 311 H 310 H (70-110) mg/dL Hemoglobin A1c (<=6.0) % Calcium (8.4-10.2) mg/dL Total Protein (6.3-8.2) g/dL Albumin (3.5-5.0) g/dL 02/06/23 02/06/23 02/06/23 Range/Units 04:03 04:03 04:03 RBC 3.50 L (3.80-5.40) m/uL Hgb 10.7 L (11.4-16.0) gm/dL Hct 33.7 L (34.0-46.0) % Metamyelocytes # (Man) 0.06 H (0) k/uL APTT (22.0-30.0) sec Sodium 134 L (137-145) mmol/L BUN 34 H (7-17) mg/dL Glucose 298 H (74-99) mg/dL POC Glucose (mg/dL) (70-110) mg/dL Hemoglobin A1c 6.1 H (<=6.0) % Calcium 7.3 L (8.4-10.2) mg/dL Total Protein 4.2 L (6.3-8.2) g/dL Albumin 2.1 L (3.5-5.0) g/dL 02/06/23 02/06/23 02/06/23 Range/Units 04:03 06:06 11:35 RBC (3.80-5.40) m/uL Hgb (11.4-16.0) gm/dL Hct (34.0-46.0) % Metamyelocytes # (Man) (0) k/uL APTT 51.3 H (22.0-30.0) sec Sodium (137-145) mmol/L BUN (7-17) mg/dL Glucose (74-99) mg/dL POC Glucose (mg/dL) 261 H 292 H (70-110) mg/dL Hemoglobin A1c (<=6.0) % Calcium (8.4-10.2) mg/dL Total Protein (6.3-8.2) g/dL Albumin (3.5-5.0) g/dL Assessment and Plan (1) Vomiting Narrative/Plan: 67-year-old female with a history of chronic vomiting which have been associated with food presented to the emergency department with increase in symptoms and frequency. Patient presented to the emergency department with weakness, was dehydrated and hypokalemic. States that she is unable to keep liquids or solids down. Last EGD was 10/19/[address] Young with findings of gastritis and large hiatal hernia. Patient has followed up in the office initially was told to eat small frequent meals however symptoms continued and she now believes she has a weight loss of 20 pounds or more. Gen. surgery initially consulted for her symptoms. Patient underwent esophagram today reporting limited study, small hiatal hernia, probable presbyesophagus. Gen. surgery Dr. Slater performed EGD today with findings of retained barium in proximal stomach, small hiatal hernia. Patient was found to have aspirated barium into the left lung. Continue PPI, diet as tolerated, TPN as ordered unclear etiology at this time of vomiting. According to general surgery note further imaging reviewed including abdominal x-ray with radiology and concerns for abnormal antrum or pylorus and the first part of the small bowel with questionable obstruction/mass possible gastric outlet syndrome with planned exploratory laparotomy when patient is stable. Patient tentatively scheduled for tomorrow. Current Visit: Yes Status: Acute Code(s): R11.10 - VOMITING, UNSPECIFIED SNOMED Code(s): 160012609 (2) Malnutrition Narrative/Plan: currently on TPN Current Visit: Yes Status: Acute Code(s): E46 - UNSPECIFIED PROTEIN-CALORIE MALNUTRITION SNOMED Code(s): 30398784 (3) Hiatal hernia Current Visit: Yes Status: Acute Code(s): K44.9 - DIAPHRAGMATIC HERNIA WITHOUT OBSTRUCTION OR GANGRENE SNOMED Code(s): 88332944 (4) Gastritis Current Visit: Yes Status: Acute Code(s): K29.70 - GASTRITIS, UNSPECIFIED, WITHOUT BLEEDING SNOMED Code(s): 0633992 (5) JOYCELYN (acute kidney injury) Current Visit: Yes Status: Acute Code(s): N17.9 - ACUTE KIDNEY FAILURE, UNSPECIFIED SNOMED Code(s): 25195818 (6) Dehydration Current Visit: Yes Status: Acute Code(s): E86.0 - DEHYDRATION SNOMED Code(s): 36845925 (7) Weakness Current Visit: Yes Status: Acute Code(s): R53.1 - WEAKNESS SNOMED Code(s): 15385254 (8) Ascites Narrative/Plan: Unclear etiology of ascites. Patient with no prior history of ascites, paracentesis, or known liver disease. Need to obtain fluid studies if patient requires paracentesis again. Follow-up with gastroenterology. Current Visit: Yes Status: Acute Code(s): R18.8 - OTHER ASCITES SNOMED Code(s): 057918949 (9) Atrial fibrillation with RVR Current Visit: Yes Status: Acute Code(s): I48.91 - UNSPECIFIED ATRIAL FIBRILLATION SNOMED Code(s): 567546750145512 (10) Aspiration into respiratory tract Current Visit: Yes Status: Acute Code(s): T17.908A - UNSP FB IN RESP TRACT, PART UNSP CAUSING OTH INJURY, INIT SNOMED Code(s): 913543475 Plan: 1. Continue symptomatic and supportive care 2. Patient underwent upper endoscopy with general surgery 01/04/2023 3. Esophagram reviewed 4. Continue PPI twice a day 5. Gen. surgery following 6. Continue medical management per primary medical team and ICU team 7. No plans on endoscopic evaluation from gastroenterology Thank you for this consultation, we will sign off at this time. Dr. Belgica Young I agree with the dictator's note, documented as a scribe by Trudy Ba.
[2023-02-06] MEDS: FAT EMULSION 20% 250 ML in EMPTY BAG 1 BAG IV SCH (17:34)
[2023-02-06 18:09] LABS: Glucose,Whole Blood 261 mg/dL (70-110)
--- NOTE | 2023-02-06 18:51 | CA ---
Transthoracic Echo Report Name: Elena Verduzco Age: 67 Gender: F : 1955 Exam Date: 02/06/2023 09:23 Exam Location: [facility] Ht (in): 60 Wt (lb): 196 Ordering Physician: Paola Osborne MD ([id number]) Attending/Referring Phys: Python Developer Beba Lu [facility] Procedure CPT: Indications: Assess LV Function Cardiac Hx: Technical Quality: Technically difficult study Contrast 1: Lumason Total Dose (mL): 5 Contrast 2: Agitated Saline Total Dose (mL): 10 MEASUREMENTS (Male / Female) Normal Values 2D ECHO LV Diastolic Diameter PLAX 4.4 cm 4.2 - 5.9 / 3.9 - 5.3 cm LV Systolic Diameter PLAX 3.0 cm IVS Diastolic Thickness 0.9 cm 0.6 - 1.0 / 0.6 - 0.9 cm LVPW Diastolic Thickness 1.0 cm 0.6 - 1.0 / 0.6 - 0.9 cm LV Relative Wall Thickness 0.4 RV Internal Dim ED PLAX 2.6 cm M-MODE Aortic Root Diameter MM 3.1 cm LA Systolic Diameter MM 4.0 cm LA Ao Ratio MM 1.3 AV Cusp Separation MM 2.0 cm DOPPLER AV Peak Velocity 128.2 cm/s AV Peak Gradient 6.6 mmHg AV Mean Velocity 87.7 cm/s AV Mean Gradient 3.6 mmHg AV Velocity Time Integral 21.2 cm LVOT Peak Velocity 101.3 cm/s LVOT Peak Gradient 4.1 mmHg LVOT Velocity Time Integral 17.1 cm Mitral E Point Velocity 73.4 cm/s Mitral A Point Velocity 88.5 cm/s Mitral E to A Ratio 0.8 MV Deceleration Time 110.9 ms LV E' Lateral Velocity 7.9 cm/s Mitral E to LV E' Lateral Ratio 9.3 LV E' Septal Velocity 8.4 cm/s Mitral E to LV E' Septal Ratio 8.7 TR Peak Velocity 251.3 cm/s TR Peak Gradient 25.3 mmHg Right Ventricular Systolic Press 29.5 mmHg FINDINGS Left Ventricle Normal Left ventricular size, wall thickness, systolic function with no obvious regional wall motion abnormalities. Left ventricular ejection fraction is estimated at 55 to 60%. Right Ventricle Normal right ventricular size and function. No evidence of pulmonary hypertension Right Atrium Normal right atrial size. Left Atrium Normal left atrial size. Mitral Valve Structurally normal mitral valve. Trace mitral regurgitation. Aortic Valve Trileaflet aortic valve. No aortic valve stenosis or regurgitation. Tricuspid Valve Structurally normal tricuspid valve. Mild tricuspid regurgitation. Pulmonic Valve Pulmonic valve not well visualized. . Trace pulmonic regurgitation. Pericardium No pericardial effusion. Aorta Aortic root and proximal ascending aorta not well visualized. CONCLUSIONS 1. Normal left ventricular size and function 2. Trace mitral with mild tricuspid regurgitation Previewed by: Dr. Mabel Hill MD (Electronically Signed) Final Date: 06 February 2023 18:50
[2023-02-07] MEDS: PIPERACILLIN-TAZOBACTAM 3.375 GM in SODIUM CHLORIDE 0.9% 100 ML IVPB SCH ×4 (00:30→23:56)
[2023-02-07] MEDS: INSULIN ASPART (NovoLOG) 100 UNIT/ML VIAL SQ SCH ×5 (00:30→23:56)
[2023-02-07 01:10] LABS: Glucose,Whole Blood 320 mg/dL (70-110)
[2023-02-07 04:41] LABS: ALT 17 U/L (4-34); AST 24 U/L (14-36); African American GFR (CKD) 89 (>60 ml/min/1.73 sqM); Albumin 2.4 g/dL (3.5-5.0); Alkaline Phosphatase 98 U/L (38-126); Anion Gap 9 mmol/L; Blood Urea Nitrogen 34 mg/dL (7-17); Calcium 7.8 mg/dL (8.4-10.2); Carbon Dioxide 25 mmol/L (22-30); Chloride 101 mmol/L (98-107); Glucose 313 mg/dL (74-99); Magnesium 2.1 mg/dL (1.6-2.3); Non-African American GFR(CKD) 77 (>60 ml/min/1.73 sqM); Phosphorus 2.5 mg/dL (2.5-4.5); Potassium 4.2 mmol/L (3.5-5.1); Sodium 135 mmol/L (137-145); Total Bilirubin 0.6 mg/dL (0.2-1.3); Total Protein 4.9 g/dL (6.3-8.2)
[2023-02-07] MEDS: 1: MVI, ADULT NO.4 WITH VIT K 10 ML, TRACE (CONC-1ML/DOSE) 1 ML, SODIUM CHLORIDE 4MEQ/ML IV SCH ×12 (04:55→17:00)
[2023-02-07 06:56] LABS: Glucose,Whole Blood 255 mg/dL (70-110)
--- NOTE | 2023-02-07 07:29 | XR ---
EXAMINATION TYPE: XR chest 1V portable DATE OF EXAM: 02/07/2023 HISTORY: Shortness of breath. COMPARISON: 02/04/2023 TECHNIQUE: Single view of the chest is submitted. FINDINGS: Demonstrated are scattered senescent parenchymal change. Extensive barium aspiration noted on the left. Scattered infiltrates throughout the right lung. The heart is stable. Hilar and mediastinal structures are within normal limits. Degenerative changes are seen of the dorsal spine. IMPRESSION: 1. Extensive barium aspiration noted on the left. Scattered infiltrates throughout the right lung.
[2023-02-07] MEDS: IPRATROPIUM-ALBUTEROL 3 ML NEB INHALATION SCH ×4 (08:15→20:17)
[2023-02-07] MEDS: PANTOPRAZOLE 40 MG/10 ML VIAL IVP SCH ×2 (08:40→20:28)
[2023-02-07] MEDS: ATORVASTATIN 10 MG TAB PO SCH (09:10)
[2023-02-07] MEDS: PRAMIPEXOLE 1 MG TAB PO SCH (09:10)
[2023-02-07] MEDS: METOPROLOL TARTRATE 25 MG TAB PO SCH (09:10)
[2023-02-07] MEDS: SPIRONOLACTONE 25 MG TAB PO SCH (09:11)
[2023-02-07 09:32] VITALS: BMI 38.4
--- NOTE | 2023-02-07 09:57 | P.CONS ---
History of Present Illness - Reason for Consult Consult date: 02/07/23 wound care - History of Present Illness This is a 67-year-old patient known to the wound care center has past medical history significant for venous insufficiency with inflammation ulcerations to bilateral lower extremities and lymphedema. However at this time patient has no open ulcerations to bilateral lower extremities. She continues to have 4+ pitting edema noted. Patient has been utilizing Triad cream and Aniceto wraps to control the swelling. Per the nurse patient also has a stage II pressure ulcer to the sacral and multiple skin tears to the back. Due to the patient's condition is unable to roll patient to visualize the ulceration. Review Of Systems: Constitutional: No fever, no chills, no night sweats. No weight change. Reports weakness and fatigue or lethargy. No daytime sleepiness. Integumentary:reports wounds, no lesions. No rash or pruritus. No unusual bruising. No change in hair or nails. Physical exam: General Appearance: Alert, cooperative, moderate distress, appears older stated age. Skin: See HPI all other Skin color, texture, tugor normal, no rashes or lesions. Neurologic: Alert oriented x3 Assessment: 1. Chronic hypertension with inflammation and ulcerations to bilateral lower extremities 2. Stage II pressure ulcer sacral 3. Lymphedema Plan: 1.Apply triad to bilateral lower extremities and wrap with aniceto. Skin tears to back apply triad. 2. Apply honey gel, sacral border foam to the sacral ulceration changing Saturday and Saturday 3. Patient will call the wound care center upon discharge to reestablish within the wound care center. Thank for the consultation any questions contact the wound care center DNP note has been reviewed and discussed with Dr. Díaz and the impression and plan of care has been directed as dictated. Past Medical History Past Medical History: Asthma, Cancer, Diabetes Mellitus, Hypertension, Neurologic Disorder Additional Past Medical History / Comment(s): MIGRAINES. RLS. HX LT BREAST CANCER History of Any Multi-Drug Resistant Organisms: None Reported Past Surgical History: Appendectomy, Breast Surgery, Orthopedic Surgery Additional Past Surgical History / Comment(s): LT MASTECTOMY. BILAT Carpal tunnel. COLONOSCOPY. thoracentesis Past Anesthesia/Blood Transfusion Reactions: Motion Sickness, Postoperative Nausea & Vomiting (PONV) Past Psychological History: No Psychological Hx Reported Smoking Status: Never smoker Past Alcohol Use History: None Reported Past Drug Use History: None Reported - Past Family History Father Family Medical History: Cancer Additional Family Medical History / Comment(s): COLON Sister(s) Family Medical History: Cancer Additional Family Medical History / Comment(s): THYROID Medications and Allergies Home Medications Medication Instructions Recorded Confirmed Type Furosemide [Lasix] 40 mg PO BID 06/23/18 01/30/23 History Metoprolol Tartrate [Lopressor] 12.5 mg PO DAILY@1500 06/23/18 01/30/23 History Metoprolol Tartrate [Lopressor] 25 mg PO BID 06/23/18 01/30/23 History Losartan Potassium [Cozaar] 25 mg PO DAILY 06/30/20 01/30/23 History Pramipexole [Mirapex] 1 mg PO BID 06/30/20 01/30/23 History Rosuvastatin Calcium 5 mg PO DAILY 06/30/20 01/30/23 History Spironolactone 25 mg PO DAILY 06/30/20 01/30/23 History metFORMIN HCL [Glucophage] 500 mg PO TID 06/30/20 01/30/23 History Pantoprazole [Protonix] 40 mg PO BID 01/30/23 01/30/23 History Allergies Allergy/AdvReac Type Severity Reaction Status Date / Time lisinopril Allergy Cough Verified 01/30/23 17:52 metolazone Allergy Unknown Verified 01/30/23 17:52 prednisone Allergy FEELS LIKE Verified 01/30/23 17:52 BODY IS ON FIRE cephalexin [From Keflex] AdvReac DIZZY Verified 01/30/23 17:52 Physical Exam Vitals: Vital Signs Temp Pulse Resp BP Pulse Ox FiO2 02/07/23 09:00 99 18 124/71 91 L 02/07/23 08:00 98.0 F 98 31 H 122/87 91 L 90 02/07/23 07:42 90 02/07/23 07:00 99 24 100/58 91 L 02/07/23 06:00 90 36 H 100/57 90 L 02/07/23 05:45 90 02/07/23 05:00 134 H 36 H 116/56 86 L 02/07/23 04:00 134 H 34 H 98/55 88 L 02/07/23 03:00 134 H 34 H 105/57 88 L 02/07/23 02:00 124 H 31 H 101/53 89 L 02/07/23 01:00 102 H 27 H 99/57 90 L 02/07/23 00:00 97.3 F L 96 35 H 113/60 92 L 02/06/23 23:00 112 H 24 118/56 90 L 02/06/23 22:00 100 27 H 96/71 88 L 02/06/23 21:00 91 25 H 93/56 91 L 02/06/23 20:55 93 02/06/23 20:29 88 02/06/23 20:00 97.8 F 89 26 H 103/62 90 L 02/06/23 19:34 90 24 103/62 90 L 02/06/23 19:00 82 22 95/49 92 L 02/06/23 18:00 78 24 97/60 95 02/06/23 17:00 76 24 92/42 92 L 02/06/23 16:00 98.6 F 86 22 99/49 92 L 02/06/23 15:00 89 22 106/49 92 L 02/06/23 14:58 98 02/06/23 14:44 92 02/06/23 14:00 87 24 105/53 93 L 02/06/23 13:00 75 23 91/48 96 02/06/23 12:00 98.2 F 87 22 108/59 91 L 02/06/23 11:16 88 02/06/23 11:06 89 02/06/23 11:00 88 26 H 103/52 96 02/06/23 10:00 86 22 110/54 95 Intake and Output 02/06/23 02/07/23 02/07/23 22:59 06:59 14:59 Intake Total 2008.583 1148 405.307 Output Total 365 435 250 Balance 1643.583 713 155.307 Intake: IV 945 1148 210 Fat Emulsion 20% 250 ml 105 168 0 In Empty Bag 1 bag @ 21 mls/hr IV SuWe@1800 [facility] Rx#:[id number] Piperacillin-Tazobactam 3 100 100 .375 gm In Sodium Chloride 0.9% 100 ml @ 25 mls/hr IVPB Q8HR [facility] Rx# :[id number] Sodium Chloride 0.9% 1, 110 160 40 000 ml @ 20 mls/hr IV . Q24H [facility] Rx#:[id number] Sodium Chloride 4Meq/ml 630 720 170 Vial 16 meq Potassium Chloride 10 meq Magnesium Sulfate gm 0.5 gm In Amino Acid 5%-D20w+Lytes* E* 1,000 ml @ 90 mls/hr IV .BY DURATION [facility] Rx#: [id number] Intake, IV Titration 1063.583 195.307 Amount Diltiazem 125 mg In 53.583 Sodium Chloride 0.9% 100 ml @ 7.5 MG/HR 7.5 mls/hr IV .[id number] [facility] Rx#: [id number] Heparin Sod,Pork in 0.45% 195.307 NaCl 25,000 unit In 0.45 % NaCl 1 250ml.bag @ 12 UNITS/KG/HR 9.798 mls/hr IV .Q24H [facility] Rx#: [id number] Sodium Chloride 4Meq/ml 1010 Vial 16 meq Potassium Chloride 10 meq Magnesium Sulfate gm 0.5 gm In Amino Acid 5%-D20w+Lytes* E* 1,000 ml @ 90 mls/hr IV .BY DURATION [facility] Rx#: [id number] Output: Urine 365 435 250 Other: Voiding Method Indwelling Catheter Indwelling Catheter Results CBC & Chem 7: 02/06/23 04:03 02/07/23 03:52 Labs: Abnormal Lab Results - Last 24 Hours (Table) 02/06/23 02/06/23 02/06/23 Range/Units 04:03 11:35 18:08 Metamyelocytes # (Man) 0.06 H (0) k/uL APTT (22.0-30.0) sec Sodium (137-145) mmol/L BUN (7-17) mg/dL Glucose (74-99) mg/dL POC Glucose (mg/dL) 292 H 261 H (70-110) mg/dL Calcium (8.4-10.2) mg/dL Total Protein (6.3-8.2) g/dL Albumin (3.5-5.0) g/dL 02/07/23 02/07/23 02/07/23 Range/Units 01:09 03:52 06:54 Metamyelocytes # (Man) (0) k/uL APTT (22.0-30.0) sec Sodium 135 L (137-145) mmol/L BUN 34 H (7-17) mg/dL Glucose 313 H (74-99) mg/dL POC Glucose (mg/dL) 320 H 255 H (70-110) mg/dL Calcium 7.8 L (8.4-10.2) mg/dL Total Protein 4.9 L (6.3-8.2) g/dL Albumin 2.4 L (3.5-5.0) g/dL 02/07/23 Range/Units 07:55 Metamyelocytes # (Man) (0) k/uL APTT 39.0 H (22.0-30.0) sec Sodium (137-145) mmol/L BUN (7-17) mg/dL Glucose (74-99) mg/dL POC Glucose (mg/dL) (70-110) mg/dL Calcium (8.4-10.2) mg/dL Total Protein (6.3-8.2) g/dL Albumin (3.5-5.0) g/dL Assessment and Plan (1) Chronic venous hypertension (idiopathic) with ulcer and inflammation of bilateral lower extremity Current Visit: Yes Status: Acute Code(s): I87.333 - CHRONIC VENOUS HTN W ULCER AND INFLAM OF BILATERAL LOW EXTRM SNOMED Code(s): 573159522670376 (2) Lymphedema due to chronic inflammation Current Visit: Yes Status: Acute Code(s): I89.0 - LYMPHEDEMA, NOT ELSEWHERE CLASSIFIED SNOMED Code(s): 152090921 (3) Pressure ulcer of sacral region, stage 2 Current Visit: Yes Status: Acute Code(s): L89.152 - PRESSURE ULCER OF SACRAL REGION, STAGE 2 SNOMED Code(s): 90596639956050
--- NOTE | 2023-02-07 10:06 | P.PN ---
Subjective Progress Note Date: 02/07/23 Principal diagnosis: Barium aspiration. Pulmonary consult dated 02/04/2023. 67-year-old female who was seen initially in the emergency department, on January 30, with nausea, vomiting, and diarrhea. Today, the patient underwent a barium swallow this morning, followed by the EGD. Apparently during the EGD, she aspirated. Her chest x-ray after the procedure shows barium throughout the left lung. She is overall in phase I recovery. We were asked to see her. She's currently on 4 L of oxygen. She's getting saline at KVO. She's not having any respiratory distress. In my opinion, she can go back to the general floor that she came from. Now that we know about her, should there be any deterioration, we'll be able to respond quickly. The patient will have a chest x-ray done tomorrow. In addition, we looked at the chest x-ray today. Also, we'll make sure she gets some breathing treatments. Lab data today includes a white count 7.7, hemoglobin 11.3, hematocrit 36, and a normal platelet count. Sodium 130, potassium 4.0, chloride 96, CO2 28, anion gap 6, BUN 25, creatinine 0.83. Progress note dated 02/05/2023. The patient is seen today in room 356. Seen yesterday in consultation, in phase I recovery. She is currently on 4 L of oxygen, getting TPN at 70 mL now her, and saline at 10 mL an hour. The patient had a barium swallow in the morning yesterday, followed by an EGD. During the EGD, the patient aspirated barium into the left lung. Current laboratory data includes a white count 4.8, he will been 12.6, hematocrit 39.7, and a platelet count of 159,000. Sodium 129, potassium 5.7, chlorides 96, CO2 28, BUN 33, and creatinine 0.84. Albumin is 2.5. Chest x-ray shows barium throughout the left hemithorax. Progress note dated 02/06/2023. This is a 67-year-old female seen in the intensive care unit, room 256. We initially saw the patient in consultation, after a episode of barium aspiration. She was transferred to the intensive care unit, because of atrial fibrillation with rapid ventricular response. Her oxygen requirements have gone up, and she's currently on 7 L high flow oxygen. She's getting TPN at 90 mL an hour, heparin via weightbase protocol, saline at 100 mL an hour, and a Cardizem drip at 7.5 mg an hour. The patient was scheduled to have surgery today, but I think it's a good idea that we hold off and wait she is a bit more stable. Her saline IV will be made she vein open, and the patient will get some Lasix IV push. White count 6, hemoglobin 10.7, hematocrit 33.7, and platelet count 171,000. Sodium 134, potassium 4.2, chlorides 102, CO2 28, BUN 34, and creatinine 0.8. Chest x-ray shows barium aspiration throughout the left lung. There may be some infiltrate or atelectasis at the right lung base. Progress note dated 02/07/2023. 67-year-old female seen in the intensive care unit, room 256. The patient is currently on AIRVO, with settings of 60 L/m and an FiO2 of 90%. She's getting saline at KVO, MVI at 90 mL per hour, Cardizem drip at 10 mg an hour, and heparin via weightbase protocol. The patient is currently in sinus rhythm. I spoke to the surgeon yesterday, and the plans are to do nothing surgically, until early next week. PTT is 39. Sodium 135, potassium 4.2, chlorides 101, CO2 25, BUN 34, creatinine 0.80. Glucose 255. Albumin is 2.4. Chest x-ray shows extensive very aspiration in the left lung. There are also scattered infiltrates within the right lung. Objective - Vital Signs Vital signs: Vital Signs Temp 98.0 F 02/07/23 08:00 Pulse 99 02/07/23 09:00 Resp 18 02/07/23 09:00 BP 124/71 02/07/23 09:00 Pulse Ox 91 L 02/07/23 09:00 FiO2 90 02/07/23 08:00 Intake & Output 02/06/23 02/07/23 02/07/23 18:59 06:59 18:59 Intake Total 2631.65 1815.583 405.307 Output Total 1605 625 250 Balance 1026.65 1190.583 155.307 Weight 89.2 kg Intake: IV 1311 1762 210 Fat Emulsion 20% 250 ml 21 252 0 In Empty Bag 1 bag @ 21 mls/hr IV [id number]@1800 [facility] Rx#:[id number] Piperacillin-Tazobactam 3 200 .375 gm In Sodium Chloride 0.9% 100 ml @ 25 mls/hr IVPB Q8HR [facility] Rx# :[id number] Sodium Chloride 0.9% 1, 300 230 40 000 ml @ 20 mls/hr IV . Q24H [facility] Rx#:[id number] Sodium Chloride 4Meq/ml 990 1080 170 Vial 16 meq Potassium Chloride 10 meq Magnesium Sulfate gm 0.5 gm In Amino Acid 5%-D20w+Lytes* E* 1,000 ml @ 90 mls/hr IV .BY DURATION [facility] Rx#: [id number] Intake, IV Titration 1320.65 53.583 195.307 Amount Diltiazem 125 mg In 63.25 53.583 Sodium Chloride 0.9% 100 ml @ 7.5 MG/HR 7.5 mls/hr IV .[id number] [facility] Rx#: [id number] Heparin Sod,Pork in 0.45% 247.4 195.307 NaCl 25,000 unit In 0.45 % NaCl 1 250ml.bag @ 12 UNITS/KG/HR 9.798 mls/hr IV .Q24H [facility] Rx#: [id number] Sodium Chloride 4Meq/ml 1010 Vial 16 meq Potassium Chloride 10 meq Magnesium Sulfate gm 0.5 gm In Amino Acid 5%-D20w+Lytes* E* 1,000 ml @ 90 mls/hr IV .BY DURATION [facility] Rx#: [id number] Output: Urine 1605 625 250 Other: Voiding Method Indwelling Catheter Indwelling Catheter - Exam No acute distress, oriented 3. Currently on AIRVO, at 90%. HEENT examination is grossly unremarkable. Neck supple. Full range of motion. No adenopathy thyromegaly or neck vein distention. Cardiovascular examination reveals regular rhythm rate. S1-S2 normal. No S3 or S4. No discernible murmur noted. Heart rate 99 bpm. Lungs reveal mild scattered rhonchi. No wheezes or crackles. Breath sounds are equal bilaterally. Saturations are 91% on AIRVO. Abdomen soft, with mild tenderness on palpation. Extremities are wrapped. They are chronically edematous. Skin is without rash or lesion. Neurologic examination is brief but nonfocal. - Labs CBC & Chem 7: 02/06/23 04:03 02/07/23 03:52 Labs: Abnormal Lab Results - Last 24 Hours (Table) 02/06/23 02/06/23 02/06/23 Range/Units 04:03 11:35 18:08 Metamyelocytes # (Man) 0.06 H (0) k/uL APTT (22.0-30.0) sec Sodium (137-145) mmol/L BUN (7-17) mg/dL Glucose (74-99) mg/dL POC Glucose (mg/dL) 292 H 261 H (70-110) mg/dL Calcium (8.4-10.2) mg/dL Total Protein (6.3-8.2) g/dL Albumin (3.5-5.0) g/dL 02/07/23 02/07/23 02/07/23 Range/Units 01:09 03:52 06:54 Metamyelocytes # (Man) (0) k/uL APTT (22.0-30.0) sec Sodium 135 L (137-145) mmol/L BUN 34 H (7-17) mg/dL Glucose 313 H (74-99) mg/dL POC Glucose (mg/dL) 320 H 255 H (70-110) mg/dL Calcium 7.8 L (8.4-10.2) mg/dL Total Protein 4.9 L (6.3-8.2) g/dL Albumin 2.4 L (3.5-5.0) g/dL 02/07/23 Range/Units 07:55 Metamyelocytes # (Man) (0) k/uL APTT 39.0 H (22.0-30.0) sec Sodium (137-145) mmol/L BUN (7-17) mg/dL Glucose (74-99) mg/dL POC Glucose (mg/dL) (70-110) mg/dL Calcium (8.4-10.2) mg/dL Total Protein (6.3-8.2) g/dL Albumin (3.5-5.0) g/dL Assessment and Plan Assessment: Acute hypoxemic respiratory failure secondary to barium aspiration. S/P EGD (02/04/2023), with barium aspiration primarily into the left lung. Acute atrial fibrillation, with rapid ventricular response. S/P barium swallow, 02/04/2023. History of hypertension. History of left breast cancer, S/P left mastectomy. History of diabetes mellitus. History of asthma. Lifelong nonsmoker. History of migraine cephalgia. History of restless leg syndrome. Plan: Plan dated 02/04/2023. She is seen in phase I recovery. She appears relatively stable. Her chest x- ray clearly shows barium aspiration into the left lung. She's on 4 L of nasal cannula. She has no history of any lung issues. She does not use oxygen at home. She's getting saline at KVO. Chest x-ray done in the morning. We had some breathing treatments to her regimen. Will watch her very closely. Should there be any deterioration, we could certainly move her into the intensive care unit at that time. Plan dated 02/05/2023. The patient was initially seen in room 356. She appeared relatively stable and was on oxygen at 4 L. She is also getting a keep vein open saline IV, and TPN. Labs, x-rays, and medications are reviewed. When we saw her, she was stable. Subsequently, she developed atrial fibrillation with RVR. She was placed on a Cardizem drip and IV heparin. A rapid response team was called to the patient's room, and I spoke to the charge nurse, and we decided to transfer the patient to the intensive care unit. Additional recommendations and suggestions are forthcoming. There was no significant decline in her respiratory status, rather this was a primary cardiovascular issue. Plan dated 02/06/2023. The patient's oxygen requirements have gone up to 7 L high flow. In addition, yesterday she developed atrial fibrillation with RVR, and is currently on IV heparin, and a Cardizem drip. Labs, x-rays, and medications are reviewed. I think it's a good idea that she does not have surgery today. There were plann ing to do an exploratory laparotomy on this patient. She may be more stable tomorrow or the day after. Additional recommendations and suggestions are forthcoming. Labs, x-rays, medications are all reviewed. Prognosis is guarded. Plan dated 02/07/2023. The patient was on high flow oxygen yesterday, and is currently on AIRVO. This represents a deterioration in her respiratory status. The patient may end up on the mechanical ventilator. She remains on IV heparin, and Cardizem drip at 10 mg an hour. No surgery planned for early next week, unless she is stable. Labs, x-rays, medications are reviewed. The patient's prognosis is guarded. We'll continue to follow the patient, and make recommendations as needed. The patient's condition has deteriorated. We will observe her very closely. Time with Patient: Greater than 30
[2023-02-07] MEDS: LORazepam 2 MG/ML INJ IV PRN ×2 (10:37→19:28)
--- NOTE | 2023-02-07 10:55 | P.PN ---
Subjective Patient is seen for follow-up for acute kidney injury. Renal function is stable Maintained on TPN Patient had developed A. fib with RVR but converted back to sinus rhythm this morning. Cardizem drip is down to 5 mg an hour. Oxygen requirements remained high with airvo/high flow oxygen with O2 sats at about 91%. Urine output at about 50 ML per hour. Serum creatinine 0.8 mg/dL. Objective - Vital Signs Vital signs: Vital Signs Temp 98.0 F 02/07/23 08:00 Pulse 99 02/07/23 09:00 Resp 18 02/07/23 09:00 BP 124/71 02/07/23 09:00 Pulse Ox 91 L 02/07/23 09:00 FiO2 90 02/07/23 08:00 Intake & Output 02/06/23 02/07/23 02/07/23 18:59 06:59 18:59 Intake Total 2631.65 1815.583 635.307 Output Total 1605 625 350 Balance 1026.65 1190.583 285.307 Weight 89.2 kg Intake: IV 1311 1762 440 Fat Emulsion 20% 250 ml 21 252 0 In Empty Bag 1 bag @ 21 mls/hr IV [id number]@1800 [facility] Rx#:[id number] Piperacillin-Tazobactam 3 200 .375 gm In Sodium Chloride 0.9% 100 ml @ 25 mls/hr IVPB Q8HR [facility] Rx# :[id number] Sodium Chloride 0.9% 1, 300 230 80 000 ml @ 20 mls/hr IV . Q24H [facility] Rx#:[id number] Sodium Chloride 4Meq/ml 990 1080 360 Vial 16 meq Potassium Chloride 10 meq Magnesium Sulfate gm 0.5 gm In Amino Acid 5%-D20w+Lytes* E* 1,000 ml @ 90 mls/hr IV .BY DURATION [facility] Rx#: [id number] Intake, IV Titration 1320.65 53.583 195.307 Amount Diltiazem 125 mg In 63.25 53.583 Sodium Chloride 0.9% 100 ml @ 7.5 MG/HR 7.5 mls/hr IV .[id number] [facility] Rx#: [id number] Heparin Sod,Pork in 0.45% 247.4 195.307 NaCl 25,000 unit In 0.45 % NaCl 1 250ml.bag @ 12 UNITS/KG/HR 9.798 mls/hr IV .Q24H [facility] Rx#: [id number] Sodium Chloride 4Meq/ml 1010 Vial 16 meq Potassium Chloride 10 meq Magnesium Sulfate gm 0.5 gm In Amino Acid 5%-D20w+Lytes* E* 1,000 ml @ 90 mls/hr IV .BY DURATION [facility] Rx#: [id number] Output: Urine 1605 625 350 Other: Voiding Method Indwelling Catheter Indwelling Catheter - Exam Patient is awake, comfortable, no acute distress Examination of the heart S1 and S2 Examination lungs decreased breath sounds at the bases Abdomen is soft nontender obese Examination of lower extremities shows edema 2-3+ with chronic skin changes [employer] exam grossly intact - Labs CBC & Chem 7: 02/06/23 04:03 02/07/23 03:52 Labs: Abnormal Lab Results - Last 24 Hours (Table) 02/06/23 02/06/23 02/07/23 Range/Units 11:35 18:08 01:09 APTT (22.0-30.0) sec Sodium (137-145) mmol/L BUN (7-17) mg/dL Glucose (74-99) mg/dL POC Glucose (mg/dL) 292 H 261 H 320 H (70-110) mg/dL Calcium (8.4-10.2) mg/dL Total Protein (6.3-8.2) g/dL Albumin (3.5-5.0) g/dL 02/07/23 02/07/23 02/07/23 Range/Units 03:52 06:54 07:55 APTT 39.0 H (22.0-30.0) sec Sodium 135 L (137-145) mmol/L BUN 34 H (7-17) mg/dL Glucose 313 H (74-99) mg/dL POC Glucose (mg/dL) 255 H (70-110) mg/dL Calcium 7.8 L (8.4-10.2) mg/dL Total Protein 4.9 L (6.3-8.2) g/dL Albumin 2.4 L (3.5-5.0) g/dL Assessment and Plan Assessment: 1. Acute kidney injury mostly prerenal poor and taken diuresis. Improved. Creatinine 1.65 on admission - 0.8 today. Patient received IV contrast on 01/31/2023 as well. No hydronephrosis noted on CT. UA fairly benign. 2. Ascites status post paracentesis with 4 L drained 02/01/2023. 3. Hypokalemia secondary to poor intake, diuretics, intracellular shifting from alkalosis. Replaced. Normal today. 4. Metabolic alkalosis from vomiting and diuresis. Improved. 5. Intractable nausea and vomiting. Surgery following. Started on TPN 02/01/2023. Possible gastric outlet obstruction. May need surgery this admission. 6. Diabetes mellitus. 7. Chronic lower extremity edema with venous stasis. 8. Hyponatremia from poor solute intake. Hypervolemic. Also component of hypertonicity from hyperglycemia. Urine sodium 92 and urine osmolality 413. Improved. 9. Hypomagnesemia from poor intake. Replaced. Improved. 10. A. fib with RVR maintained on heparin and Cardizem drip. Plan: Monitor electrolytes Consider restarting loop diuretics.
[2023-02-07] MEDS ORDERED: HYDROPHILIC CREAM 180 GM TUBE TOPICAL SCH (11:00)
[2023-02-07] MEDS: SODIUM CHLORIDE 0.9% 1,000 ML IV SCH (11:18)
[2023-02-07] MEDS: DILTIAZEM 125 MG in SODIUM CHLORIDE 0.9% 100 ML IV SCH (12:00)
--- NOTE | 2023-02-07 12:07 | P.PN ---
Subjective Progress Note Date: 02/07/23 CHIEF COMPLAINT: Vomiting HISTORY OF PRESENT ILLNESS: The patient remains in the ICU. Her respiratory sta tus has worsened. She has been placed on AIRVO. Pulmonary service following closely. Patient denies any abdominal pain. Denies any nausea or vomiting. She is sitting at bedside chair. She is complaining of anxiety and difficulty sleeping. Afebrile. She is mildly tachycardic earlier this morning. It has improved. Cardiology has decreased Cardizem. WBC 6.0 hgb 10.7 platelets 171 sodium 135 k 4.2 creatinine 0.80 PHYSICAL EXAM: VITAL SIGNS: Reviewed. GENERAL: Well-developed in no acute distress. ABDOMEN: Soft. Nondistended. Nontender. NEUROLOGIC: Alert and oriented. Cranial nerves II through XII grossly intact. ASSESSMENT: 1. Possible gastric outlet obstruction with intractable vomiting 2. Status post EGD with aspiration of barium into the left lung 3. Small hiatal hernia 4. A. fib with RVR 5. Status post EGD with barium aspiration primary into the left lung PLAN: -Exploratory laparotomy with possible partial gastrectomy has been rescheduled for 02/11/[address] anand -Keep patient nothing by mouth -Continue ICU management -Continue TPN for nutrition support -Continue supportive care Physician Professor Of Biochemistry note has been reviewed by physician. Signing provider agrees with the documented findings, assessment, and plan of care. Objective - Vital Signs Vital signs: Vital Signs Temp 98.0 F 02/07/23 08:00 Pulse 97 02/07/23 11:00 Resp 24 02/07/23 11:00 BP 112/57 02/07/23 11:00 Pulse Ox 90 L 02/07/23 11:00 FiO2 93 02/07/23 11:00 Intake & Output 02/06/23 02/07/23 02/07/23 18:59 06:59 18:59 Intake Total 2631.65 1815.583 745.307 Output Total 1605 625 430 Balance 1026.65 1190.583 315.307 Weight 89.2 kg Intake: IV 1311 1762 550 Fat Emulsion 20% 250 ml 21 252 0 In Empty Bag 1 bag @ 21 mls/hr IV [id number]@1800 [facility] Rx#:[id number] Piperacillin-Tazobactam 3 200 .375 gm In Sodium Chloride 0.9% 100 ml @ 25 mls/hr IVPB Q8HR [facility] Rx# :[id number] Sodium Chloride 0.9% 1, 300 230 100 000 ml @ 20 mls/hr IV . Q24H [facility] Rx#:[id number] Sodium Chloride 4Meq/ml 990 1080 450 Vial 16 meq Potassium Chloride 10 meq Magnesium Sulfate gm 0.5 gm In Amino Acid 5%-D20w+Lytes* E* 1,000 ml @ 90 mls/hr IV .BY DURATION [facility] Rx#: [id number] Intake, IV Titration 1320.65 53.583 195.307 Amount Diltiazem 125 mg In 63.25 53.583 Sodium Chloride 0.9% 100 ml @ 7.5 MG/HR 7.5 mls/hr IV .[id number] [facility] Rx#: [id number] Heparin Sod,Pork in 0.45% 247.4 195.307 NaCl 25,000 unit In 0.45 % NaCl 1 250ml.bag @ 12 UNITS/KG/HR 9.798 mls/hr IV .Q24H [facility] Rx#: [id number] Sodium Chloride 4Meq/ml 1010 Vial 16 meq Potassium Chloride 10 meq Magnesium Sulfate gm 0.5 gm In Amino Acid 5%-D20w+Lytes* E* 1,000 ml @ 90 mls/hr IV .BY DURATION [facility] Rx#: [id number] Output: Urine 1605 625 430 Other: Voiding Method Indwelling Catheter Indwelling Catheter Indwelling Catheter - Labs CBC & Chem 7: 02/06/23 04:03 02/07/23 03:52 Labs: Abnormal Lab Results - Last 24 Hours (Table) 02/06/23 02/06/23 02/07/23 Range/Units 11:35 18:08 01:09 APTT (22.0-30.0) sec Sodium (137-145) mmol/L BUN (7-17) mg/dL Glucose (74-99) mg/dL POC Glucose (mg/dL) 292 H 261 H 320 H (70-110) mg/dL Calcium (8.4-10.2) mg/dL Total Protein (6.3-8.2) g/dL Albumin (3.5-5.0) g/dL 06/15/23 06/15/23 06/15/23 Range/Units 03:52 06:54 07:55 APTT 39.0 H (22.0-30.0) sec Sodium 135 L (137-145) mmol/L BUN 34 H (7-17) mg/dL Glucose 313 H (74-99) mg/dL POC Glucose (mg/dL) 255 H (70-110) mg/dL Calcium 7.8 L (8.4-10.2) mg/dL Total Protein 4.9 L (6.3-8.2) g/dL Albumin 2.4 L (3.5-5.0) g/dL
[2023-02-07 12:11] LABS: Glucose,Whole Blood 264 mg/dL (70-110)
[2023-02-07] MEDS: METOPROLOL TARTRATE 12.5 MG TAB PO SCH (12:28)
[2023-02-07] MEDS: HEPARIN SOD,PORK IN 0.45% NACL 25,000 UNIT in 0.45% NACL 1 250ML.BAG IV SCH (13:08)
[2023-02-07] MEDS: INSULIN DETEMIR (LEVEMIR) 100 UNIT/ML SYR SQ SCH (13:09)
[2023-02-07 17:35] LABS: Glucose,Whole Blood 236 mg/dL (70-110)
--- NOTE | 2023-02-07 18:37 | P.PN ---
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 Reports she has not been able to keep any of her medications down. Denies abdominal pain.Patient previously had symptoms of gastroesophageal reflux disease, nausea and vomiting over 3 months prior to visit with GI. She completed an EGD with Dr. Stephanie Young,GI 10/19/22, reporting a large hiatal hernia, mild antral gastritis, biopsies obtained, Protonix 40 twice a day initiated and patient was referred to Dr. Cesar, general surgery, if no improvement in symptoms in 6-8 weeks. Duodenum, biopsy Pathology reported benign small bowel mucosa with intact villous architecture, negative for histopathologic abnormality, H pylori not identified, negative for fungal organisms. Denies chest pain, palpitations or shortness of breath. Afebrile, normal WBC. Hemoglobin 11.8, platelets 296, INR 1.1. Sodium 132, potassium 2.5, chloride 75, bicarb 47, BUN 36 creatinine 1.29. Lactic acid 1.9, phospho wing 3.2, magnesium 2.2, total bili 1.6, troponin 0.062, lipase 75. 02/01/2023 significant improvement of potassium, up to 3.5 , magnesium 2.2.continues to have emesis post consumption of clear liquids-denies nausea. Denies abdominal pain. Abdomen soft despite ct report of large ascites. CT of chest, abdomen and pelvis completed yesterday reporting small hiatal hernia, large volume ascites, anteverted uterus with right adnexal cystic lesion measuring 2.9 cm, colonic diverticulosis, mildly distended fluid-filled esophagus, could be related to esophagitis versus reflux, cholelithiasis, small bilateral pleural effusions with associated atelectasis, questionable septal nodular contour to the liver. PICC line pending ordered for TPN. 02/04/2023 Status post paracentesis with 4 L removed-unfortunately fluid studies were not collected .Esophagram pending as warranted by CT's report of distended fluid-filled esophagus. GI services return today,consult in place, recommendations pending. Labs pending. Maintaining O2 sats of 98% on 2 L nasal cannula. Afebrile. 02/05/2023 Currently NPO, upper GI completed yesterday am reporting limited study probable presbyesophagus and small hiatal hernia. Yesterday afternoon EGD performed by general surgery reporting retained barium in the proximal stomach and evidence of a small hiatal hernia. Patient apparently aspirated during the procedure . Postprocedure chest x-ray performed reporting barium throughout the airway, diffusely throughout the left lung compatible with widespread aspiration, bilateral lower lobe infiltrate and small effusion,esophagus appears dilated, there is a small patch of the stomach appears markedly irregular. The distal gastric abnormality is suspected includes neoplastic process or obstruction. This morning patient developed atrial fibrillation with RVR, cardiology consulted, Cardizem and heparin drips initiated. Blood pressures soft prior to the initiation of Cardizem drip, maintaining O2 sats in the low 90s on 4 L nasal cannula, short of breath with conversing, Transfer to ICU ordered. Afebrile. 02/06/2023 transferred to ICU yesterday secondary to further decline status post barium aspiration, A. fib with RVR , shortness of breath, requiring closer monitoring. Oxygen requirements increased shortly after her admission into the ICU, currently requiring 9 L high flow nasal cannula, maintaining O2 sats in the 90s. Chest x-ray reporting increasing mild infiltrate to the right lung, corre late for pulmonary edema, atypical pneumonia, persistent hypodensity opacification with barium through the diminished aerated left lung. Patient is unstable for surgery at this time. Maintained on Cardizem and heparin drips. Telemetry A. fib relation with heart rate better controlled. TPN continues. Afebrile, T-max 99.5, WBC 6. Hemoglobin decreased to 10.7, platelets 171, INR 1. Sodium 134, potassium 4.2, bicarb 28, BUN 34, creatinine 0.8. A1c 6.1. Blood sugars uncontrolled, on TPN. 02/07/2023 currently requiring airvo , 60L/minute, FiO2 90%, to maintain O2 sat in the low 90s. Chest x-ray reporting extensive barium aspiration noted on the left, scattered infiltrates throughout the right lung. Telemetry A. fib, with rapid ventricular rates in the drain technician hours, Cardizem drip initiated to 10 mg per hour, anticoagulated on heparin drip. BUN 34, creatinine 0.8 Denies abdominal pain. Objective - Vital Signs Vital signs: Vital Signs Temp 98.3 F 02/07/23 16:00 Pulse 84 02/07/23 17:00 Resp 33 H 02/07/23 17:00 BP 106/56 02/07/23 17:00 Pulse Ox 94 L 02/07/23 17:00 FiO2 100 02/07/23 15:00 Intake & Output 02/06/23 02/07/23 02/07/23 18:59 06:59 18:59 Intake Total 2631.65 1185.747 9014.174 Output Total 1605 625 785 Balance 1026.65 5628.833 7543.174 Weight 89.2 kg Intake: IV 1311 1762 1310 Fat Emulsion 20% 250 ml 21 252 0 In Empty Bag 1 bag @ 21 mls/hr IV SuWe@1800 [facility] Rx#:[id number] Piperacillin-Tazobactam 3 200 100 .375 gm In Sodium Chloride 0.9% 100 ml @ 25 mls/hr IVPB Q8HR [facility] Rx# :[id number] Sodium Chloride 0.9% 1, 300 230 220 000 ml @ 20 mls/hr IV . Q24H [facility] Rx#:[id number] Sodium Chloride 4Meq/ml 990 1080 990 Vial 16 meq Potassium Chloride 10 meq Magnesium Sulfate gm 0.5 gm In Amino Acid 5%-D20w+Lytes* E* 1,000 ml @ 90 mls/hr IV .BY DURATION [facility] Rx#: [id number] Intake, IV Titration 1320.65 53.583 1252.174 Amount Diltiazem 125 mg In 63.25 53.583 Sodium Chloride 0.9% 100 ml @ 7.5 MG/HR 7.5 mls/hr IV .[id number] [facility] Rx#: [id number] Heparin Sod,Pork in 0.45% 247.4 242.174 NaCl 25,000 unit In 0.45 % NaCl 1 250ml.bag @ 12 UNITS/KG/HR 9.798 mls/hr IV .Q24H [facility] Rx#: [id number] Sodium Chloride 4Meq/ml 1010 1010 Vial 16 meq Potassium Chloride 10 meq Magnesium Sulfate gm 0.5 gm In Amino Acid 5%-D20w+Lytes* E* 1,000 ml @ 90 mls/hr IV .BY DURATION [facility] Rx#: [id number] Output: Urine 1605 625 785 Other: Voiding Method Indwelling Catheter Indwelling Catheter Indwelling Catheter - Exam PHYSICAL EXAM: VITAL SIGNS: [As above] GENERAL: Sitting up in chair, Alert and oriented 3, Sitting up in bed, currently on airvo HEENT: Normocephalic, Conjunctivae normal. eyes normal. Sclera anicteric. NECK: Supple, No JVD. CARDIOVASCULAR: S1, S2 regular.No murmur RESPIRATION: rhonchi scattered throughout ABDOMEN: Soft, nondistended, minimal diffuse tenderness . No guarding, no rigidity. Positive bowel sounds. LEGS: Chronic bilateral lower extremity lymphedema, dressings present. Sacral Stage II pressure ulcer. NERVOUS SYSTEM: Cranial N 2-12 grossly normal. Generalized weakness.No focal d eficits. Strength and sensation grossly intact. Skin: Warm and dry, no rash - Labs CBC & Chem 7: 02/06/23 04:03 02/07/23 03:52 Labs: Abnormal Lab Results - Last 24 Hours (Table) 02/07/23 02/07/23 02/07/23 Range/Units 01:09 03:52 06:54 APTT (22.0-30.0) sec Sodium 135 L (137-145) mmol/L BUN 34 H (7-17) mg/dL Glucose 313 H (74-99) mg/dL POC Glucose (mg/dL) 320 H 255 H (70-110) mg/dL Calcium 7.8 L (8.4-10.2) mg/dL Total Protein 4.9 L (6.3-8.2) g/dL Albumin 2.4 L (3.5-5.0) g/dL 02/07/23 02/07/23 02/07/23 Range/Units 07:55 12:09 14:59 APTT 39.0 H 59.0 H (22.0-30.0) sec Sodium (137-145) mmol/L BUN (7-17) mg/dL Glucose (74-99) mg/dL POC Glucose (mg/dL) 264 H (70-110) mg/dL Calcium (8.4-10.2) mg/dL Total Protein (6.3-8.2) g/dL Albumin (3.5-5.0) g/dL 02/07/23 Range/Units 17:33 APTT (22.0-30.0) sec Sodium (137-145) mmol/L BUN (7-17) mg/dL Glucose (74-99) mg/dL POC Glucose (mg/dL) 236 H (70-110) mg/dL Calcium (8.4-10.2) mg/dL Total Protein (6.3-8.2) g/dL Albumin (3.5-5.0) g/dL Assessment and Plan Assessment: Intractable nausea and vomiting secondary to large hiatal hernia per recent EGD on 10/18. CT suggestive of large volume ascites, small hiatal hernia, distended fluid-filled esophagus, questionable subtle nodular contour of the liver. Chest x-ray post EGD reporting small patch of the stomach appears markedly irregular,distal gastric abnormality is suspected ,includes neoplastic process or obstruction. General surgery planning exploratory laparotomy once patient stabilizes. Atrial fibrillation with RVR Status post esophagogram 02/04/2023 Status post EGD 02/04/2023 with barium aspiration-left lung Dehydration secondary to the above Acute hypoxic respiratory failure secondary to aspiration of barium. Acute renal failure secondary to the above Hypokalemia, severe, resolved History of antral gastritis CT reporting right adnexal cystic lesion 2.9 cm, further follow-up outpatient. Nonpressure chronic ulcers of bilateral lower extremities, sacral stage II pressure ulcer, wound care team following Chronic intermittent asthma PONV Diabetes mellitus Hypertension History of left breast cancer status post left mastectomy Protein calorie malnutrition, most recent albumin 2.4, on TPN via PICC line. Ascites, status post paracentesis, no fluid studies obtained, in a patient with no prior history of ascites or liver disease. Plan: Continue on current medication regime ,monitoring and symptomatic treatment. Oxygen requirements worsened, remains unstable for surgery. Antiarrhythmics as per cardiology. Wound care as per wound care team. Diagnosis guarded given multiple complex medical issues. The impression and plan of care has been dictated as directed. : I performed a history and examination of this patient, discussed the same with the dictator. I agree with the dictator's note ,documented as a scribe. Any additional findings or plans will be noted.
--- NOTE | 2023-02-07 19:22 | PN ---
PROGRESS NOTE SUBJECTIVE: Ms. Verduzco has paroxysmal atrial fibrillation. She is n.p.o., going for possible surgery for laparotomy, explorative by Dr. Slater. Surgery was scheduled for today, but possibly to be either Saturday or Saturday. However, she was in sinus rhythm until about 4 o'clock this morning, went into atrial fibrillation with RVR, and back in sinus since 6 o'clock. She is doing well, resting comfortably, unable to take oral medications. I am, therefore, recommending we will continue IV heparin and IV Cardizem at 5 mg/hour. OBJECTIVE: VITAL SIGNS: Stable. HEART: S1 and S2 heard normally. Short systolic murmur noted. LUNGS: Reveal fair air entry. ABDOMEN: Soft. Rest of physical exam is unchanged. PLAN: We will continue combination of heparin and Cardizem, and hopefully, surgery will be performed sooner than later. Prognosis remains guarded. MMODL / IJN: [id number] /
[2023-02-07] MEDS: ENOXAPARIN 40 MG/0.4 ML SYRINGE SQ SCH (19:27)
[2023-02-07 23:51] LABS: Glucose,Whole Blood 301 mg/dL (70-110)
[2023-02-07] MEDS: IPRATROPIUM-ALBUTEROL 3 ML NEB INHALATION PRN (23:56)
[2023-02-08] MEDS ORDERED: LORazepam 2 MG/ML INJ IV STA (00:50)
[2023-02-08] MEDS ORDERED: LORazepam 2 MG/ML INJ IV PRN ×2 (00:52→07:41)
[2023-02-08] MEDS: DILTIAZEM 125 MG in SODIUM CHLORIDE 0.9% 100 ML IV SCH (03:28)
[2023-02-08] MEDS: IPRATROPIUM-ALBUTEROL 3 ML NEB INHALATION PRN (04:14)
[2023-02-08 05:03] LABS: ALT 16 U/L (4-34); AST 28 U/L (14-36); African American GFR (CKD) 75 (>60 ml/min/1.73 sqM); Albumin 2.4 g/dL (3.5-5.0); Alkaline Phosphatase 140 U/L (38-126); Anion Gap 5 mmol/L; Blood Urea Nitrogen 38 mg/dL (7-17); Calcium 7.9 mg/dL (8.4-10.2); Carbon Dioxide 28 mmol/L (22-30); Chloride 106 mmol/L (98-107); Glucose 308 mg/dL (74-99); Magnesium 2.4 mg/dL (1.6-2.3); Non-African American GFR(CKD) 65 (>60 ml/min/1.73 sqM); Phosphorus 4.3 mg/dL (2.5-4.5); Sodium 139 mmol/L (137-145); Total Bilirubin 0.9 mg/dL (0.2-1.3); Total Protein 4.9 g/dL (6.3-8.2)
[2023-02-08 06:05] VITALS: TEMP 96.6
[2023-02-08 06:08] LABS: Glucose,Whole Blood 223 mg/dL (70-110)
[2023-02-08] MEDS: 1: MVI, ADULT NO.4 WITH VIT K 10 ML, TRACE (CONC-1ML/DOSE) 1 ML, SODIUM CHLORIDE 4MEQ/ML IV SCH ×6 (06:45)
[2023-02-08] MEDS: INSULIN ASPART (NovoLOG) 100 UNIT/ML VIAL SQ SCH (06:46)
--- NOTE | 2023-02-08 07:06 | P.PN ---
Subjective Progress Note Date: 02/08/23 Principal diagnosis: Paroxysmal atrial fibrillation The patient is a 67-year-old female patient with a past medical history significant for hypertension and dyslipidemia who was admitted to the hospital with intractable nausea and vomiting and she was diagnosed with gastric outlet obstruction and subsequently she was diagnosed with a mass. We consulted to see the patient because off atrial fibrillation with RVR which is known to her. February 082022 The patient was seen and evaluated this morning. She does have significant change in mental status. Apparently she is not doing well and [facility] is possibly going to see her today currently she is DO NOT RESUSCITATE. She is currently in atrial fibrillation with a controlled heart rate. She is on Cardizem IV. Currently she is on heparin IV as well. She underwent an echo which revealed normal biventricular dimension and systolic function was no significant valvular abnormalities On exam she is lethargic with stable vital signs an irregular rhythm and bilateral expiratory wheezing and severe bilateral lower extremity is edema Assessment Gastric outlet obstruction Abdominal mass Paroxysmal atrial fibrillation Change in mental status Multiple comorbid conditions Plan Continue the heparin IV and continue the Cardizem IV. The patient is nothing by mouth Further recommendation to follow Objective - Vital Signs Vital signs: Vital Signs Temp 96.6 F L 02/08/23 04:00 Pulse 94 02/08/23 06:00 Resp 5 L 02/08/23 06:00 BP 99/49 02/08/23 06:00 Pulse Ox 90 L 02/08/23 06:00 FiO2 100 02/08/23 04:15 Intake & Output 02/07/23 02/08/23 02/08/23 18:59 06:59 18:59 Intake Total 2595.924 2456.75 Output Total 785 510 Balance 2788.025 6503.75 Intake: IV 1310 1320 Fat Emulsion 20% 250 ml 0 In Empty Bag 1 bag @ 21 mls/hr IV SuWe@1800 [facility] Rx#:[id number] Piperacillin-Tazobactam 3 100 .375 gm In Sodium Chloride 0.9% 100 ml @ 25 mls/hr IVPB Q8HR [facility] Rx# :[id number] Sodium Chloride 0.9% 1, 220 240 000 ml @ 20 mls/hr IV . Q24H [facility] Rx#:[id number] Sodium Chloride 4Meq/ml 990 1080 Vial 16 meq Potassium Chloride 10 meq Magnesium Sulfate gm 0.5 gm In Amino Acid 5%-D20w+Lytes* E* 1,000 ml @ 90 mls/hr IV .BY DURATION [facility] Rx#: [id number] Intake, IV Titration 3798.605 2071.75 Amount Diltiazem 125 mg In 33.75 123.75 Sodium Chloride 0.9% 100 ml @ Per Protocol IV .Q0M [facility] Rx#:[id number] Heparin Sod,Pork in 0.45% 242.174 NaCl 25,000 unit In 0.45 % NaCl 1 250ml.bag @ 12 UNITS/KG/HR 9.798 mls/hr IV .Q24H [facility] Rx#: [id number] Sodium Chloride 4Meq/ml 1010 Vial 16 meq Potassium Chloride 10 meq Magnesium Sulfate gm 0.5 gm In Amino Acid 5%-D20w+Lytes* E* 1,000 ml @ 90 mls/hr IV .BY DURATION [facility] Rx#: [id number] Sodium Chloride 4Meq/ml 1013 Vial 28 meq Potassium Chloride 10 meq Magnesium Sulfate gm 0.5 gm In Amino Acid 5%-D20w+Lytes* E* 1,000 ml @ 90 mls/hr IV .BY DURATION [facility] Rx#: [id number] Output: Urine 785 510 Other: Voiding Method Indwelling Catheter Indwelling Catheter - Labs CBC & Chem 7: 02/06/23 04:03 02/08/23 04:02 Labs: Abnormal Lab Results - Last 24 Hours (Table) 02/07/23 02/07/23 02/07/23 Range/Units 07:55 12:09 14:59 APTT 39.0 H 59.0 H (22.0-30.0) sec BUN (7-17) mg/dL Glucose (74-99) mg/dL POC Glucose (mg/dL) 264 H (70-110) mg/dL Calcium (8.4-10.2) mg/dL Magnesium (1.6-2.3) mg/dL Alkaline Phosphatase (38-126) U/L Total Protein (6.3-8.2) g/dL Albumin (3.5-5.0) g/dL 02/07/23 02/07/23 02/08/23 Range/Units 17:33 23:49 04:02 APTT (22.0-30.0) sec BUN 38 H (7-17) mg/dL Glucose 308 H (74-99) mg/dL POC Glucose (mg/dL) 236 H 301 H (70-110) mg/dL Calcium 7.9 L (8.4-10.2) mg/dL Magnesium 2.4 H (1.6-2.3) mg/dL Alkaline Phosphatase 140 H (38-126) U/L Total Protein 4.9 L (6.3-8.2) g/dL Albumin 2.4 L (3.5-5.0) g/dL 02/08/23 02/08/23 Range/Units 04:02 06:07 APTT 47.7 H (22.0-30.0) sec BUN (7-17) mg/dL Glucose (74-99) mg/dL POC Glucose (mg/dL) 223 H (70-110) mg/dL Calcium (8.4-10.2) mg/dL Magnesium (1.6-2.3) mg/dL Alkaline Phosphatase (38-126) U/L Total Protein (6.3-8.2) g/dL Albumin (3.5-5.0) g/dL
[2023-02-08] MEDS ORDERED: MORPHINE SULFATE 2 MG/ML SYRINGE IV PRN (07:41)
[2023-02-08] MEDS ORDERED: MORPHINE SULFATE 4 MG/ML SYRINGE IV PRN (07:41)
[2023-02-08] MEDS ORDERED: MORPHINE SULFATE (100 MG/2 ML) 100 MG in SODIUM CHLORIDE 0.9% 100 ML IV SCH (07:45)
[2023-02-08] MEDS: IPRATROPIUM-ALBUTEROL 3 ML NEB INHALATION SCH (07:54)
[2023-02-08] MEDS ORDERED: SCOPOLAMINE 1 MG/72 HR PATCH TRANSDERM SCH (08:00)
[2023-02-08 08:46] VITALS: PULSE 67; RESP 30
--- NOTE | 2023-02-08 10:20 | P.PN ---
Subjective Progress Note Date: 02/08/23 Principal diagnosis: Barium aspiration. Pulmonary consult dated 02/04/2023. 67-year-old female who was seen initially in the emergency department, on January 30, with nausea, vomiting, and diarrhea. Today, the patient underwent a barium swallow this morning, followed by the EGD. Apparently during the EGD, she aspirated. Her chest x-ray after the procedure shows barium throughout the left lung. She is overall in phase I recovery. We were asked to see her. She's currently on 4 L of oxygen. She's getting saline at KVO. She's not having any respiratory distress. In my opinion, she can go back to the general floor that she came from. Now that we know about her, should there be any deterioration, we'll be able to respond quickly. The patient will have a chest x-ray done tomorrow. In addition, we looked at the chest x-ray today. Also, we'll make sure she gets some breathing treatments. Lab data today includes a white count 7.7, hemoglobin 11.3, hematocrit 36, and a normal platelet count. Sodium 130, potassium 4.0, chloride 96, CO2 28, anion gap 6, BUN 25, creatinine 0.83. Progress note dated 02/05/2023. The patient is seen today in room 356. Seen yesterday in consultation, in phase I recovery. She is currently on 4 L of oxygen, getting TPN at 70 mL now her, and saline at 10 mL an hour. The patient had a barium swallow in the morning yesterday, followed by an EGD. During the EGD, the patient aspirated barium into the left lung. Current laboratory data includes a white count 4.8, he will been 12.6, hematocrit 39.7, and a platelet count of 159,000. Sodium 129, potassium 5.7, chlorides 96, CO2 28, BUN 33, and creatinine 0.84. Albumin is 2.5. Chest x-ray shows barium throughout the left hemithorax. Progress note dated 02/06/2023. This is a 67-year-old female seen in the intensive care unit, room 256. We initially saw the patient in consultation, after a episode of barium aspiration. She was transferred to the intensive care unit, because of atrial fibrillation with rapid ventricular response. Her oxygen requirements have gone up, and she's currently on 7 L high flow oxygen. She's getting TPN at 90 mL an hour, heparin via weightbase protocol, saline at 100 mL an hour, and a Cardizem drip at 7.5 mg an hour. The patient was scheduled to have surgery today, but I think it's a good idea that we hold off and wait she is a bit more stable. Her saline IV will be made she vein open, and the patient will get some Lasix IV push. White count 6, hemoglobin 10.7, hematocrit 33.7, and platelet count 171,000. Sodium 134, potassium 4.2, chlorides 102, CO2 28, BUN 34, and creatinine 0.8. Chest x-ray shows barium aspiration throughout the left lung. There may be some infiltrate or atelectasis at the right lung base. Progress note dated 02/07/2023. 67-year-old female seen in the intensive care unit, room 256. The patient is currently on AIRVO, with settings of 60 L/m and an FiO2 of 90%. She's getting saline at KVO, MVI at 90 mL per hour, Cardizem drip at 10 mg an hour, and heparin via weightbase protocol. The patient is currently in sinus rhythm. I spoke to the surgeon yesterday, and the plans are to do nothing surgically, until early next week. PTT is 39. Sodium 135, potassium 4.2, chlorides 101, CO2 25, BUN 34, creatinine 0.80. Glucose 255. Albumin is 2.4. Chest x-ray shows extensive very aspiration in the left lung. There are also scattered infiltrates within the right lung. Progress note dated 02/08/2023. 67-year-old female seen in the intensive care unit, room 256. Currently, the patient is on BiPAP, with settings of 07/8100%. She's not receiving any IV fluids. Yesterday, we had a long discussion with the patient, she decided that she did not want intubation or mechanical ventilation. Today, her family make sure a comfort care patient. The patient is currently in the intensive care unit. Labs today include a PTT of 47.7, sodium 139, potassium 5, chlorides 106, CO2 28, BUN 38, creatinine 0.92. Albumin is 2.4. Chest x-ray from yesterday shows dense consolidation throughout the entire left lung, with evidence of barium aspiration, and some diffuse infiltrates in the right lung. Objective - Vital Signs Vital signs: Vital Signs Temp 96.6 F L 02/08/23 04:00 Pulse 67 02/08/23 08:45 Resp 30 H 02/08/23 08:45 BP 100/43 02/08/23 07:00 Pulse Ox 91 L 02/08/23 07:00 FiO2 100 02/08/23 07:52 Intake & Output 02/07/23 02/08/23 02/08/23 18:59 06:59 18:59 Intake Total 2595.924 2456.75 110 Output Total 785 510 30 Balance 8534.170 7269.75 80 Weight 89.2 kg Intake: IV 1310 1320 110 Fat Emulsion 20% 250 ml 0 In Empty Bag 1 bag @ 21 mls/hr IV SuWe@1800 [facility] Rx#:[id number] Piperacillin-Tazobactam 3 100 .375 gm In Sodium Chloride 0.9% 100 ml @ 25 mls/hr IVPB Q8HR [facility] Rx# :[id number] Sodium Chloride 0.9% 1, 220 240 20 000 ml @ 20 mls/hr IV . Q24H [facility] Rx#:[id number] Sodium Chloride 4Meq/ml 990 1080 90 Vial 16 meq Potassium Chloride 10 meq Magnesium Sulfate gm 0.5 gm In Amino Acid 5%-D20w+Lytes* E* 1,000 ml @ 90 mls/hr IV .BY DURATION [facility] Rx#: [id number] Intake, IV Titration 7311.917 5012.75 Amount Diltiazem 125 mg In 33.75 123.75 Sodium Chloride 0.9% 100 ml @ Per Protocol IV .Q0M [facility] Rx#:[id number] Heparin Sod,Pork in 0.45% 242.174 NaCl 25,000 unit In 0.45 % NaCl 1 250ml.bag @ 12 UNITS/KG/HR 9.798 mls/hr IV .Q24H [facility] Rx#: [id number] Sodium Chloride 4Meq/ml 1010 Vial 16 meq Potassium Chloride 10 meq Magnesium Sulfate gm 0.5 gm In Amino Acid 5%-D20w+Lytes* E* 1,000 ml @ 90 mls/hr IV .BY DURATION [facility] Rx#: [id number] Sodium Chloride 4Meq/ml 1013 Vial 28 meq Potassium Chloride 10 meq Magnesium Sulfate gm 0.5 gm In Amino Acid 5%-D20w+Lytes* E* 1,000 ml @ 90 mls/hr IV .BY DURATION [facility] Rx#: [id number] Output: Urine 785 510 30 Other: Voiding Method Indwelling Catheter Indwelling Catheter - Exam Patient with mild to moderate respiratory distress, currently on BiPAP. Very lethargic. HEENT examination is grossly unremarkable. Neck supple. Full range of motion. No adenopathy thyromegaly or neck vein distention. Cardiovascular examination reveals regular rhythm rate. S1-S2 normal. No S3 or S4. No discernible murmur noted. Heart rate 67 bpm. Lungs reveal severe scattered rhonchi. No wheezes or crackles. Breath sounds are equal bilaterally. Saturations are 91% on BiPAP. Abdomen soft, with mild tenderness on palpation. Extremities are wrapped. They are chronically edematous. Skin is without rash or lesion. Neurologic examination is brief but nonfocal. - Labs CBC & Chem 7: 02/06/23 04:03 02/08/23 04:02 Labs: Abnormal Lab Results - Last 24 Hours (Table) 02/07/23 02/07/23 02/07/23 Range/Units 12:09 14:59 17:33 APTT 59.0 H (22.0-30.0) sec BUN (7-17) mg/dL Glucose (74-99) mg/dL POC Glucose (mg/dL) 264 H 236 H (70-110) mg/dL Calcium (8.4-10.2) mg/dL Magnesium (1.6-2.3) mg/dL Alkaline Phosphatase (38-126) U/L Total Protein (6.3-8.2) g/dL Albumin (3.5-5.0) g/dL 02/07/23 02/08/23 02/08/23 Range/Units 23:49 04:02 04:02 APTT 47.7 H (22.0-30.0) sec BUN 38 H (7-17) mg/dL Glucose 308 H (74-99) mg/dL POC Glucose (mg/dL) 301 H (70-110) mg/dL Calcium 7.9 L (8.4-10.2) mg/dL Magnesium 2.4 H (1.6-2.3) mg/dL Alkaline Phosphatase 140 H (38-126) U/L Total Protein 4.9 L (6.3-8.2) g/dL Albumin 2.4 L (3.5-5.0) g/dL 02/08/23 Range/Units 06:07 APTT (22.0-30.0) sec BUN (7-17) mg/dL Glucose (74-99) mg/dL POC Glucose (mg/dL) 223 H (70-110) mg/dL Calcium (8.4-10.2) mg/dL Magnesium (1.6-2.3) mg/dL Alkaline Phosphatase (38-126) U/L Total Protein (6.3-8.2) g/dL Albumin (3.5-5.0) g/dL Assessment and Plan Assessment: Acute hypoxemic respiratory failure secondary to barium aspiration. S/P EGD (02/04/2023), with barium aspiration primarily into the left lung. Acute atrial fibrillation, with rapid ventricular response. S/P barium swallow, 02/04/2023. History of hypertension. History of left breast cancer, S/P left mastectomy. History of diabetes mellitus. History of asthma. Lifelong nonsmoker. History of migraine cephalgia. History of restless leg syndrome. Plan: Plan dated 02/04/2023. She is seen in phase I recovery. She appears relatively stable. Her chest x- ray clearly shows barium aspiration into the left lung. She's on 4 L of nasal cannula. She has no history of any lung issues. She does not use oxygen at home. She's getting saline at KVO. Chest x-ray done in the morning. We had some breathing treatments to her regimen. Will watch her very closely. Should there be any deterioration, we could certainly move her into the intensive care unit at that time. Plan dated 02/05/2023. The patient was initially seen in room 356. She appeared relatively stable and was on oxygen at 4 L. She is also getting a keep vein open saline IV, and TPN. Labs, x-rays, and medications are reviewed. When we saw her, she was stable. Subsequently, she developed atrial fibrillation with RVR. She was placed on a Cardizem drip and IV heparin. A rapid response team was called to the patient's room, and I spoke to the charge nurse, and we decided to transfer the patient to the intensive care unit. Additional recommendations and suggestions are forthcoming. There was no significant decline in her respiratory status, rather this was a primary cardiovascular issue. Plan dated 02/06/2023. The patient's oxygen requirements have gone up to 7 L high flow. In addition, yesterday she developed atrial fibrillation with RVR, and is currently on IV heparin, and a Cardizem drip. Labs, x-rays, and medications are reviewed. I think it's a good idea that she does not have surgery today. There were planning to do an exploratory laparotomy on this patient. She may be more stable tomorrow or the day after. Additional recommendations and suggestions are forthcoming. Labs, x-rays, medications are all reviewed. Prognosis is gu arded. Plan dated 02/07/2023. The patient was on high flow oxygen yesterday, and is currently on AIRVO. This represents a deterioration in her respiratory status. The patient may end up on the mechanical ventilator. She remains on IV heparin, and Cardizem drip at 10 mg an hour. No surgery planned for early next week, unless she is stable. Labs, x-rays, medications are reviewed. The patient's prognosis is guarded. We'll continue to follow the patient, and make recommendations as needed. The patient's condition has deteriorated. We will observe her very closely. Plan dated 02/08/2023. Yesterday, the patient decided that she did not want intubation or mechanical ventilation. Today, she is Comfort Care. Labs, x-rays, medications are reviewed. Additional recommendations and suggestions are forthcoming. The patient's overall prognosis is very poor. Her chest x-ray from yesterday shows dense consolidation throughout the left lung, the barium aspiration, and some developing infiltrates in the right lung. Comfort Care orders have been placed. The patient's ordered to have Ativan, morphine, and a scopolamine patch. Time with Patient: Less than 30
[2023-02-08 10:34] VITALS: BP 92/40
[2023-02-08] MEDS: INSULIN DETEMIR (LEVEMIR) 100 UNIT/ML SYR SQ SCH (11:55)
[2023-02-08] MEDS: SODIUM CHLORIDE 0.9% 1,000 ML IV SCH (11:55)
[2023-02-08] MEDS: PIPERACILLIN-TAZOBACTAM 3.375 GM in SODIUM CHLORIDE 0.9% 100 ML IVPB SCH (11:55)
--- NOTE | 2023-02-08 13:36 | CDI ---
Documentation Clarification Form Date: 02/08/2023 01:31:50 PM From: Daly Myrick RN, CCDS Admit Date: 01/30/2023 05:33:00 PM Patient Name: Elena Verduzco V Visit Number: [id number] Discharge Date: ATTENTION: The Clinical Documentation Specialists (CDI) and [facility] Coding Staff appreciate your assistance in clarifying documentation. Please respond to the clarification below the line at the bottom and electronically sign. The CDI & [facility] Coding staff will review the response and follow-up if needed. Please note: Queries are made part of the Legal Health Record. If you have any questions, please contact the author of this message via ITS. Dr. Armando Slater Aspiration of barium during EGD is documented is documented in the ongoing progress notes starting on 02/04/2023 and patient had EGD on 02/04/2023. Additional clarification is requested regarding the relationship, if any, that exists between the diagnosis and the procedure. Patients Admitting Diagnosis: Intractable nausea and vomiting, Dysphagia Post-Operative Diagnosis: Small hiatal hernia Procedure performed: EGD History/Risk Factors: Hiatal hernia, GERD, Diabetes Mellitus, Hypertension, Neurologic disorder, Breast cancer, chronic ulcers of bilateral lower extremities. Clinical Indicators: 67-year-old female present with intractable nausea and vomiting who has a history of large hiatal hernia. She was having difficulty keeping liquids and solid food down for the past several weeks. She was admitted with hypokalemia and dehydration. 02/05 VS 113/94 133 24 99.5 92 % 4/L NC 02/08 Labs: WBC 4.8 02/04 Esophagram: was attempted could not tolerate the barium and started throwing up almost immediately. Contrast is seen within the esophagus extending into the stomach. There appears to be a small hiatal hernia. 02/04 CXR: There is barium seen throughout the airway and diffusely through the left lung compatible with widespread aspiration. Bilateral lower infiltrate and small effusion. 02/05 Pulmonary The patient had a barium swallow in the morning, followed by EBD. During the EGD the patient aspirated barium into the left lung. Treatment: ICU/Telemetry monitory Monitor O2 Sat's (Titrate) CXR Per orders Zosyn 3 GM IVPB What relationship, if any, exists between the diagnosis of barium aspiration and the procedure? [ ] Aspiration of barium is a complication of surgical procedure [ ] Aspiration of barium is an expected outcome of the surgical procedure [ xx ] Aspiration of barium is related to patients co-morbid condition(s) of (specify)___gastric obstruction and not a complication of the procedure. [ ] Other please specify ____ [ ] Unable to determine (Template Last Revised: October 2020) MTDD
--- NOTE | 2023-02-08 14:13 | CDI ---
Documentation Clarification Form Date: 02/08/2023 02:01:00 PM From: Daly Myrick RN, CCDS Admit Date: 01/30/2023 05:33:00 PM Patient Name: Elena Verduzco V Visit Number: [id number] Discharge Date: ATTENTION: The Clinical Documentation Specialists (CDI) and [facility] Coding Staff appreciate your assistance in clarifying documentation. Please respond to the clarification below the line at the bottom and electronically sign. The CDI & [facility] Coding staff will review the response and follow-up if needed. Please note: Queries are made part of the Legal Health Record. If you have any questions, please contact the author of this message via ITS. Dr. Venancio Lucas Conflicting documentation has been found in the medical record. As attending physician, please provide clarification. 02/01 SX: severe protein calorie malnutrition due to chronic nausea and vomiting. 02/07 Attending progress notes: protein calorie malnutrition unspecified severity. 02/08 Nutritional assessment: Nutrition intake poor, Inadequate energy intake due to vomiting due to hiatal hernia Overweight, BMI 38.4, 5 ft History/Risk Factors: Hiatal hernia, GERD, Diabetes Mellitus, Hypertension, Neurologic disorder, Breast cancer, chronic ulcers of bilateral lower extremities. Clinical Indicators: 67-year-old female present with intractable nausea and vomiting who has a history of large hiatal hernia. She was having difficulty keeping liquids and solid food down for the past several weeks. She was admitted with hypokalemia and dehydration. 02/05 VS 113/94 133 24 99.5 92 % 4/L NC 01/30 Na 134, K+ 2.7 Cl 69 CO2 49 BUN 43 CR1.65 02/08 Labs: WBC 4.8 Treatment: Nutritional assessment NPO with TPN 02/05-02/07 Monitor Labs/electrolytes per orders. Monitor I/O Please clarify which diagnosis is most appropriate: [ ] Mild protein calorie malnutrition [ ] Moderate protein calorie malnutrition [X] Severe protein calorie malnutrition [ ] Other (please specify) [ ] Unable to determine (Template Last Revised: October 2020) MTDD
--- NOTE | 2023-02-11 00:32 | P.PN ---
Subjective Progress Note Date: 02/03/23 67-year-old female with past medical history significant for large hiatal hernia, mild antral gastritis, asthma, diabetes mellitus, hypertension, neurologic disorder, breast cancer status post left mastectomy,PONV , nonpressure chronic ulcers of bilateral lower extremities -follows with the wound care center at [facility] and multiple other medical issues presented to the ER with worsening nausea and vomiting over the last week accompanied by increased weakness. Reports she has not been able to keep any of her medications down. Denies abdominal pain.Patient previously had symptoms of gastroesophageal reflux disease, nausea and vomiting over 3 months prior to visit with GI. She completed an EGD with Dr. Stephanie Young,GI 10/19/22, reporting a large hiatal hernia, mild antral gastritis, biopsies obtained, Protonix 40 twice a day initiated and patient was referred to Dr. Cesar, general surgery, if no improvement in symptoms in 6-8 weeks. Duodenum, biopsy Pathology reported benign small bowel mucosa with intact villous architecture, negative for histopathologic abnormality, H pylori not identified, negative for fungal organisms. Denies chest pain, palpitations or shortness of breath. Afebrile, normal WBC. Hemoglobin 11.8, platelets 296, INR 1.1. Sodium 132, potassium 2 .5, chloride 75, bicarb 47, BUN 36 creatinine 1.29. Lactic acid 1.9, phosphorus 3.2, magnesium 2.2, total bili 1.6, troponin 0.062, lipase 75. Patient is status post PICC line insertion was starting TPN Renal function is improving; nephrology recommending to discontinue IV fluids and monitor electrolytes 02/03/2023 Patient is seen in follow-up for acute kidney injury. Renal function improved. TPN started 02/01/2023. Oral intake remains poor. Gets nauseous. Status post paracentesis. Patient appears to be improving. She will start on regular diet. She will try eating in the upright position out of bed. Objective - Vital Signs Vital signs: Vital Signs Temp 98.7 F 02/03/23 07:55 Pulse 82 02/03/23 13:14 Resp 18 02/03/23 13:14 BP 103/69 02/03/23 13:14 Pulse Ox 96 02/03/23 13:14 FiO2 Intake & Output 02/02/23 02/03/23 02/03/23 18:59 06:59 18:59 Intake Total 80 1473.333 355 Output Total 400 1000 225 Balance -320 473.333 130 Intake: Intake, IV Titration 933.333 Amount Sodium Chloride 4Meq/ml 933.333 Vial 32 meq Potassium Chloride 30 meq Sodium Phosphate 15 mmol Magnesium Sulfate gm 0.75 gm Calcium Gluconate 1 gm In Amino Acids 5 %/ Dextrose 20 % 1,000 ml @ 70 mls/hr IV .BY DURATION [facility] Rx#:[id number] Oral 80 540 355 Output: Urine 400 800 225 Emesis 200 Other: Voiding Method Bedside Commode Bedside Commode Bedside Commode External Catheter External Catheter External Catheter - Exam GENERAL: Sitting up in bed, no acute distress. HEENT: Normocephalic, Conjunctivae normal. eyes normal. NECK: Supple, No JVD. CARDIOVASCULAR: S1, S2 regular.No murmur RESPIRATION: Unlabored, Breath sounds diminished in the bases. ABDOMEN: Soft, nondistended, nontender . No guarding. no masses palpable. LEGS: Positive edema, bilateral lower extremities wrapped PSYCHIATRY: Alert and oriented X3, mood and affect normal. NERVOUS SYSTEM: Cranial N 2-12 grossly normal. Diffuse weakness, No focal deficits. Strength and sensation grossly intact. Skin: Warm and dry, no rash - Labs CBC & Chem 7: 02/06/23 04:03 02/08/23 04:02 Labs: Abnormal Lab Results - Last 24 Hours (Table) 02/02/23 02/02/23 02/03/23 Range/Units 17:55 23:55 06:30 POC Glucose (mg/dL) 208 H 195 H 186 H (70-110) mg/dL 02/03/23 Range/Units 12:09 POC Glucose (mg/dL) 180 H (70-110) mg/dL Assessment and Plan Assessment: Intractable nausea and vomiting secondary to large hiatal hernia per recent EGD on 10/18. CT suggestive of large volume ascites, small hiatal hernia, distended f luid-filled esophagus, questionable subtle nodular contour of the liver Dehydration secondary to the above Acute renal failure secondary to the above Hypokalemia, severe, improving History of antral gastritis CT reporting right adnexal cystic lesion 2.9 cm, further follow-up outpatient. Nonpressure chronic ulcers of bilateral lower extremities, wound care team following Chronic intermittent asthma, stable PONV Diabetes mellitus Hypertension History of left breast cancer status post left mastectomy Plan: Continue on current medication regime ,monitoring and symptomatic treatment. PICC line ordered for TPN. Maintain IV fluid fluid hydration. Potassium replacement as per previously ordered protocol .Close monitoring of renal function, electrolytes,LFTs with repeat labs ordered for a.m. Wound care recommendations per care team pending. Barium swallow ordered with consult for GI, Dr. Stephanie Young on Saturday, when GI services return.
--- NOTE | 2023-02-11 14:20 | CDI ---
Documentation Clarification Form Date: 02/11/2023 01:43:54 PM From: Theresa Ryan Admit Date: 01/30/2023 05:33:00 PM Patient Name: Elena Verduzco V Visit Number: [id number] Discharge Date: 02/08/2023 12:30:00 PM ATTENTION: The Clinical Documentation Specialists (CDI) and [facility] Coding Staff appreciate your assistance in clarifying documentation. Please respond to the clarification below the line at the bottom and electronically sign. The CDI & [facility] Coding staff will review the response and follow-up if needed. Please note: Queries are made part of the Legal Health Record. If you have any questions, please contact the author of this message via ITS. Dr. Nawaf Ralph Change in mental status is documented in your progress note 02/08/23. Additional clarification regarding the etiology/cause of her symptoms is requested. History/Risk Factors: patient is a 67 year old female with a medical history of HTN, CKD, hyperlipidemia, RLS, gastritis, and breast cancer Clinical Indicators: patient presented with intractable nausea and vomiting, diagnosed with gastric outlet obstruction and subsequently she was diagnosed with a mass. Patient has a PICC line placed for TPN, she also had paracentesis performed due to ascites, and an EGD which the patient aspirated barium in to the left lung. 02/05/23 patient was found to be in new onset of Atrial Fibrillation 02/06/23 patient was diagnosed with acute hypoxemic respiratory failure secondary to barium aspiration 02/08/23 patient had a significant change in mental status, DNR status, and comfort measures Labs 02/08: APTT 47.7, BUN 38, Glucose 308, Calcium 7.9, Magnesium 2.4 Vitals 02/08 Pulse 96, Resp Rate 4, BP 103/55, O2 88L Treatment: Bipap, DNR, and changed to comfort care Please clarify the type of encephalopathy, if known: [ x] Altered Mental Status [ ] Metabolic Encephalopathy [ ] Other, please specify [ ] Unable to determine MTDD
--- NOTE | 2023-02-13 08:38 | CDI ---
Documentation Clarification Form Date: 02/12/2023 05:36:00 PM From: Daly Myrick RN, CCDS Admit Date: 01/30/2023 05:33:00 PM Patient Name: Elena Verduzco V Visit Number: [id number] Discharge Date: 02/08/2023 12:30:00 PM ATTENTION: The Clinical Documentation Specialists (CDI) and [facility] Coding Staff appreciate your assistance in clarifying documentation. Please respond to the clarification below the line at the bottom and electronically sign. The CDI & [facility] Coding staff will review the response and follow-up if needed. Please note: Queries are made part of the Legal Health Record. If you have any questions, please contact the author of this message via ITS. Dr. Oni Reynoso The patient has barium aspiration documented in the ongoing progress notes starting on 02/04/2023. Based on this information and the findings below, is there an additional diagnosis that is clinically appropriate for this patient? Patient history/risk factors: Diabetes Mellitus, Hypertension, Breast cancer, Asthma, Hiatal hernia Clinical Indicators: 67-year-old female present with nausea, vomiting and diarrhea. 02/04/2023 she went for a barium swallow followed by EGD. 02/04 Esophagram was attempted however the patient could not tolerate the barium and started throwing up almost immediately. Contrast is seen within the esophagus extending into the stomach. 02/04 CXR (after EGD) shows barium throughout the left lung. 02/05 CXR: Similar appearance of extensive barium through the left hemithorax suggestive of large scale aspiration. 02/06 CXR: Increasing mild infiltrate through the right lung. Correlate for pulmonary edema. Differential could include atypical pneumonia. Persistent high density opacification with barium through the diminished aerated left lung. 02/06 VS: (11:00) 103/52 88 26 96 % 9 L High Flow 02/06 Labs: WBC 6.0 02/07 CXR: Extensive barium aspiration noted on the left. Scattered infiltrates throughout the right lung. Treatment: ICU/Telemetry monitoring (02/05) Duoneb 0.5 Mg -3 mg/3 ml Amy Q 2 PRN, Monitor O2 Sat's (titrate) CXR Daily, per orders Is there an additional diagnosis that is clinically appropriate for this patient? [ ] Aspiration, Pneumonia, chemical [ ] No additional diagnosis/Not clinically significant [ ] Unable to determine [ ] Other, please specify (Template Last Reviewed: September 2022) Barium Aspiration MTDD
== END 2023-02-08 12:30 | disposition expired | DRG 380 ==
LOC: EC 13:50 → 3SCARD 17:33 → 2SICU 02-05 11:22
PROVIDERS: ADMIT Family Medicine; ATTEND Family Medicine
PROC: 0W9G3ZX Drainage of Peritoneal Cavity, Percutaneous Approach, Diagnostic (ICD-10-PCS; 2023-02-01)
PROC: 3E0436Z Introduction of Nutritional Substance into Central Vein, Percutaneous Approach (ICD-10-PCS; 2023-02-01)
PROC: 02HV33Z Insertion of Infusion Device into Superior Vena Cava, Percutaneous Approach (ICD-10-PCS; principal; 2023-02-01 10:30)
PROC: 0DJ08ZZ Inspection of Upper Intestinal Tract, Via Natural or Artificial Opening Endoscopic (ICD-10-PCS; 2023-02-04)
PROC: 5A09357 Assistance with Respiratory Ventilation, Less than 24 Consecutive Hours, Continuous Positive Airway Pressure (ICD-10-PCS; 2023-02-07)
DX: K31.1 Adult hypertrophic pyloric stenosis (principal); E43 Unspecified severe protein-calorie malnutrition; J96.01 Acute respiratory failure with hypoxia; N17.9 Acute kidney failure, unspecified; L97.919 Non-pressure chronic ulcer of unspecified part of right lower leg with unspecified severity; L97.929 Non-pressure chronic ulcer of unspecified part of left lower leg with unspecified severity; R18.8 Other ascites; J98.11 Atelectasis; I87.333 Chronic venous hypertension (idiopathic) with ulcer and inflammation of bilateral lower extremity; E87.3 Alkalosis; E87.1 Hypo-osmolality and hyponatremia; T17.898A Other foreign object in other parts of respiratory tract causing other injury, initial encounter; E87.6 Hypokalemia; I48.0 Paroxysmal atrial fibrillation; N18.9 Chronic kidney disease, unspecified; Z51.5 Encounter for palliative care; Z28.310 Unvaccinated for COVID-19; L89.152 Pressure ulcer of sacral region, stage 2; E11.22 Type 2 diabetes mellitus with diabetic chronic kidney disease; E11.65 Type 2 diabetes mellitus with hyperglycemia; Z66 Do not resuscitate; E87.70 Fluid overload, unspecified; I95.9 Hypotension, unspecified; E78.5 Hyperlipidemia, unspecified; E83.42 Hypomagnesemia; E66.9 Obesity, unspecified; R13.10 Dysphagia, unspecified; N85.4 Malposition of uterus; N83.291 Other ovarian cyst, right side; I12.9 Hypertensive chronic kidney disease with stage 1 through stage 4 chronic kidney disease, or unspecified chronic kidney disease; K57.30 Diverticulosis of large intestine without perforation or abscess without bleeding; K21.9 Gastro-esophageal reflux disease without esophagitis; E86.0 Dehydration; K44.9 Diaphragmatic hernia without obstruction or gangrene; G43.909 Migraine, unspecified, not intractable, without status migrainosus; G25.81 Restless legs syndrome; J45.909 Unspecified asthma, uncomplicated; I89.0 Lymphedema, not elsewhere classified; I87.8 Other specified disorders of veins; J45.20 Mild intermittent asthma, uncomplicated; F41.9 Anxiety disorder, unspecified; T50.2X5A Adverse effect of carbonic-anhydrase inhibitors, benzothiadiazides and other diuretics, initial encounter; Z68.38 Body mass index [BMI] 38.0-38.9, adult; K80.20 Calculus of gallbladder without cholecystitis without obstruction; K29.70 Gastritis, unspecified, without bleeding; K22.89 Other specified disease of esophagus; Z85.3 Personal history of malignant neoplasm of breast; Z90.12 Acquired absence of left breast and nipple; Z79.899 Other long term (current) drug therapy; Z79.84 Long term (current) use of oral hypoglycemic drugs; Z88.8 Allergy status to other drugs, medicaments and biological substances; Z88.1 Allergy status to other antibiotic agents; Z71.3 Dietary counseling and surveillance
CPT/HCPCS: 36415; 36573; 43235; 49083; 71045; 71260; 74018; 74177; 74246; 80048; 80053; 81003; 82330; 83036; 83605; 83690; 83735; 83930; 83935; 84100; 84132; 84133; 84300; 84443; 84478; 84484; 85025; 85610; 85730; 88108; 88305; 88341; 88342; 93005; 93306; 94640; 94660; 94760; 96361; 96365; 96375; 99285